=== PATIENT | female | born 1990 | race Caucasian/White ===

== ENCOUNTER 2020-07-04 11:07 | Outpatient (REF) | payer OTHER, SELFPAY ==
--- NOTE | 2020-07-04 11:12 | XR_ITS ---
EXAMINATION: XR KNEE, RIGHT CLINICAL INFORMATION: M25.561 - Pain in right knee COMPARISON: Radiographs right lower leg 09/12/2019 TECHNIQUE: Right knee is imaged in 4 views including AP projection with weightbearing. FINDINGS: There is no fracture, dislocation, or destructive process. Normal bony mineralization. No knee joint compartment narrowing. No erosive change or chondrocalcinosis. Lateral view shows suprapatellar bursa within limits of normal thickness. No definite effusion. Hoffa's fat pad appears normal. Axial view patella shows no lateralization or tilting. XR/XR knee RT 4V IMPRESSION: Normal right knee.
== END 2020-07-04 11:08 | disposition home or self-care (01) ==
LOC: HO.XRAY 11:07
PROVIDERS: PCP Hospitalist; Visit Provider Hospitalist
DX: M25.561 Pain in right knee (principal)
CPT/HCPCS: 73564

== ENCOUNTER 2020-10-31 10:56 | Outpatient (REF) | payer OTHER, SELFPAY ==
[2020-11-01 03:44] LABS: CT PCR NOT DETECTED (Not Detect.); NG PCR NOT DETECTED (Not Detect.)
[2020-11-01 14:30] LABS: BV Int Neg Control Negative (Negative); BV Int Pos Control Positive (Positive)
[2020-11-02 23:31] LABS: HPV mRNA E6/E7 rflx Not Detected (Not Detected)
== END 2020-10-31 10:57 | disposition home or self-care (01) ==
LOC: HO.LAB 10:56
PROVIDERS: Visit Provider Advanced Practice Midwife
DX: Z01.419 Encounter for gynecological examination (general) (routine) without abnormal findings (principal); N89.8 Other specified noninflammatory disorders of vagina; N92.1 Excessive and frequent menstruation with irregular cycle; R10.9 Unspecified abdominal pain; I10 Essential (primary) hypertension; M54.2 Cervicalgia; Z87.42 Personal history of other diseases of the female genital tract; Z20.2 Contact with and (suspected) exposure to infections with a predominantly sexual mode of transmission; Z79.899 Other long term (current) drug therapy
CPT/HCPCS: 36415; 87480; 87491; 87510; 87591; 87624; 87660; 88142

== ENCOUNTER 2020-11-29 14:14 | Outpatient (REF) | payer OTHER, SELFPAY ==
--- NOTE | ~2020-11-29 | XR_ITS ---
EXAMINATION: XR CERVICAL SPINE CLINICAL INFORMATION: Spondylosis with myelopathy COMPARISON: None TECHNIQUE: 6 views of the cervical spine, inclusive of bilateral oblique views, were obtained. FINDINGS: Bone alignment is normal. No fracture or dislocation is seen. Disc spaces are normal. Neural foramen are patent. Prevertebral soft tissues are normal. XR/XR cervical spine min 6V IMPRESSION: Unremarkable examination.
== END 2020-11-29 14:15 | disposition home or self-care (01) ==
LOC: HO.XRAY 14:14
PROVIDERS: PCP Hospitalist
DX: M47.812 Spondylosis without myelopathy or radiculopathy, cervical region (principal)
CPT/HCPCS: 72052

== ENCOUNTER 2020-12-10 12:56 | Outpatient (RCR) | payer OTHER, SELFPAY | END 2021-01-01 08:00 | disposition home or self-care (01) | LOC: HO.PT 12:56 | PROVIDERS: PCP Hospitalist | DX: M47.812 Spondylosis without myelopathy or radiculopathy, cervical region (principal) | CPT/HCPCS: 97110; 97112; 97162 ==

== ENCOUNTER 2021-11-29 12:46 | Outpatient (REF) | payer OTHER, SELFPAY ==
[2021-11-29 14:18] LABS: Magnesium 1.9 mg/dL (1.6-2.6); Phosphorus 2.7 mg/dL (2.7-4.5)
== END 2021-11-29 12:47 | disposition home or self-care (01) ==
LOC: HO.LAB 12:46
PROVIDERS: PCP Hospitalist; Visit Provider Hospitalist
DX: K21.9 Gastro-esophageal reflux disease without esophagitis (principal)
CPT/HCPCS: 36415; 83735; 84100

== ENCOUNTER 2022-04-04 09:01 | Outpatient (REF) | payer OTHER, SELFPAY ==
[2022-04-04 10:01] LABS: Hematocrit 38.1 % (37.0-47.0); Mean Corpuscular HGB Conc 34.1 g/dl (31.0-35.0); Mean Corpuscular Hemoglobin 29.6 pg (27.0-33.0); Mean Corpuscular Volume 86.8 fL (80.0-98.0); Platelet Count 252 X10*3/uL (160-400); Red Blood Count 4.39 X10*6/uL (4.20-5.50); Red Cell Distribution Width 12.8 % (11.0-16.0); White Blood Count 8.2 X10*3/uL (4.8-10.8)
[2022-04-04 10:16] LABS: Alanine Aminotransferase 29 U/L (0-31); Alkaline Phosphatase 82 U/L (39-117); Anion Gap 13 (12-20); Aspartate Amino Transferase 17 U/L (5-31); Bilirubin Total 0.4 mg/dL (0.0-1.0); Blood Urea Nitrogen 8 mg/dL (9-16); Carbon Dioxide 23 mmol/L (22-29); Chloride 107 mmol/L (96-108); Cholesterol 175 mg/dL; Estimated Glomerular Filt Rate > 60; Glucose Fasting 93 mg/dL (60-99); HDL Cholesterol 44 mg/dL; LDL Cholesterol Calculated 117 mg/dl; Potassium 4.8 mmol/L (3.3-5.1); Sodium 138 mmol/L (135-145); Total Protein 6.7 g/dL (6.5-8.0); Triglycerides 73 mg/dL
[2022-04-04 10:40] LABS: TSH reflex Free T4 1.09 uIU/mL (0.32-4.0)
== END 2022-04-04 09:02 | disposition home or self-care (01) ==
LOC: HO.LAB 09:01
PROVIDERS: Visit Provider Hospitalist
DX: Z00.00 Encounter for general adult medical examination without abnormal findings (principal); I10 Essential (primary) hypertension
CPT/HCPCS: 36415; 80053; 80061; 84443; 85027

== ENCOUNTER 2022-09-12 13:35 | Emergency (ER) | payer OTHER, SELFPAY ==
--- NOTE | ~2022-09-12 | US_ITS ---
EXAMINATION: US ABDOMEN COMPLETE CLINICAL INFORMATION: Abdominal pain with nausea vomiting and diarrhea. COMPARISON: None TECHNIQUE: Real-time imaging of the abdominal viscera. FINDINGS: PANCREAS: Visualized pancreas is unremarkable. ABDOMINAL AORTA: The proximal, mid, and distal segments are normal in caliber. INFERIOR VENA CAVA: Visualized portions are normal. LIVER: The liver is normal in size. The liver contour is normal. There is diffuse increased liver parenchymal echogenicity, consistent with hepatocellular disease, commonly secondary to hepatic steatosis. No focal hepatic lesion. There is no intrahepatic biliary duct dilatation seen. GALLBLADDER: Normal. The gallbladder is physiologically distended without evidence of stones, sludge, polyps, wall thickening or pericholecystic fluid. COMMON BILE DUCT: Normal in caliber measuring 0.3 cm in diameter. RIGHT KIDNEY: Normal. No hydronephrosis. No renal calculi or focal parenchymal lesions. The kidney measures 10.7 cm in maximum dimension. LEFT KIDNEY: Normal. No hydronephrosis. No focal parenchymal lesions. 4 mm echogenic nonshadowing focus in the mid pole parapelvic fat with twinkle artifact, possibly a nonobstructing small renal stone. The kidney measures 10.4 cm in maximum dimension. SPLEEN: Normal. The spleen measures 11.6 cm in maximum dimension. FREE FLUID: None. US/US abdomen complete IMPRESSION: 1. Increased hepatic parenchymal echogenicity suggesting hepatic steatosis. 2. Normal gallbladder. No biliary ductal dilation. 3. Possible 4 mm nonobstructing left renal calculus. No hydronephrosis.
--- NOTE | 2022-09-12 13:52 | ED.ABDPAIN ---
HPI - Abdominal Pain General Chief Complaint: Abdominal Pain <SANJU Barrientos - Last Filed: 09/12/22 13:55> Stated Complaint: Flu Symptoms <SANJU Barrientos - Last Filed: 09/12/22 13:55> Time Seen by Provider: 09/12/22 22:41 <SANJU Barrientos - Last Filed: 09/12/22 13:55> Source: patient <Taurus Min MD - Last Filed: 09/12/22 23:02> Mode of arrival: ambulatory <Taurus Min MD - Last Filed: 09/12/22 23:02> Limitations: no limitations <Taurus Min MD - Last Filed: 09/12/22 23:02> History of Present Illness HPI narrative: 32-year-old female with no major medical problems presents with nausea, vomiting, muscle aches. Symptoms started 4:00 a.m. this morning. That time, symptoms are severe. She vomited twice. The vomitus was nonbloody and nonbilious. She has also had some loose stool that has been nonbloody. She has had some left upper abdominal discomfort. The there is no clear relieving or exacerbating features. The pain does not radiate. Symptoms are crampy in nature. They can be associated with nausea. Sick contacts also includes her son. <Taurus Min MD - Last Filed: 09/12/22 23:02> Related Data Home Medications: Previous Rx's Medication Instructions Recorded atenolol 25 mg tablet 25 mg PO DAILY #90 tabs 04/03/22 cetirizine 10 mg tablet (Zyrtec) 10 mg PO DAILY #30 tabs 04/03/22 omeprazole 40 mg capsule,delayed 40 mg PO QAM #90 caps 04/03/22 release ondansetron 4 mg disintegrating 4 mg PO Q8H PRN nausea and 09/12/22 tablet vomiting #10 tabs <SANJU Barrientos - Last Filed: 09/12/22 13:55> Allergies/Adverse Reactions: Allergies Allergy/AdvReac Type Severity Reaction Status Date / Time aspirin [ASPIRIN] Allergy Mild BRUISES, Verified 04/14/22 14:07 rash penicillin G Allergy Mild Hives Verified 04/14/22 14:07 <SANJU Barrientos - Last Filed: 09/12/22 13:55> Review of Systems Review of Systems CONSTITUTIONAL: Denies weight loss, fever and chills. HEENT: Denies changes in vision and hearing. RESPIRATORY: Denies SOB and cough. CV: Denies palpitations no CP. GI: + abdominal pain, nausea, vomiting and diarrhea. : Denies dysuria and urinary frequency. MSK: Denies myalgia and joint pain. SKIN: Denies rash and pruritus. NEUROLOGICAL: Denies headache and syncope. PSYCHIATRIC: Denies recent changes in mood. Denies anxiety and depression. All other ROS are negative unless in HPI <Taurus Min MD - Last Filed: 09/12/22 23:02> PMFSH Past Medical History Surgical History: Surgical History History of section History of foot surgery History of tubal ligation <SANJU Barrientos - Last Filed: 09/12/22 13:55> Family History Family History: Family History Father Lupus Arthritis Mother Hypertension Sister Ovarian cancer Sister Hypoglycemia Paternal Grandfather Lung cancer <SANJU Barrientos - Last Filed: 09/12/22 13:55> Social History Social History: Social History Housing: Apartment Alcohol intake: current Alcohol intake frequency: holidays/special occasions only Alcohol type: wine Patient Tobacco Use Status: Never used Tobacco Smoked in Last 30 Days: No e-Cigarette/Vaping Use: Never Used Second Hand Smoke Exposure: No Use of substances other than those prescribed or required for medical reasons: No Advance Directives: No Advance Directives Information Provided: Yes service: No Current occupational status: employed Current occupational exposures/hazards: No Gender identity: Female Cognitive needs: No Hearing needs: No Vision needs: No <SANJU Barrientos Last Filed: 09/12/22 13:55> Physical Exam ED Vital Signs: Vital Signs - 24 hr 09/12/22 13:54 Temperature 98.7 F Pulse Rate 109 H Respiratory Rate 16 Blood Pressure 127/81 Pulse Oximetry 99 Oxygen Delivery Method Room Air BMI result Body Mass Index 34.4 <SANJU Barrientos - Last Filed: 09/12/22 13:55> Vital Signs - 24 hr 09/12/22 13:54 Temperature 98.7 F Pulse Rate 109 H Respiratory Rate 16 Blood Pressure 127/81 Pulse Oximetry 99 Oxygen Delivery Method Room Air BMI result Body Mass Index 34.4 GEN: Well developed, no acute distress, alert, oriented HEENT: Normocephalic, atraumatic, normal external ears, nose appears normal, no oropharyngeal edema or exudates Eyes: Normal to appearance Neck: Supple, no lymphadenopathy Respiratory: Talks in complete sentences, no respiratory distress, clear to auscultation bilaterally Cardiovascular: Regular rate and rhythm, no murmurs rubs or gallops Abdomen: Soft, nontender, nondistended, no guarding, no rebound Back: No CVA tenderness Extremities: No clubbing cyanosis or edema Neurologic: No focal neurologic deficits, cranial nerves 2-12 intact, strength is 5/5 bilaterally, gait normal Skin: No rash <Taurus Min MD - Last Filed: 09/12/22 23:02> Course Course Course Narrative: RME- 13:55PM - 32yoF who is Czech-speaking HTN, 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 Reports her son has similar symptoms. Denies any fevers, dysuria or any other symptoms related to this. Plan: Will obtain labs, COVID/RSV/flu swab, UA and a abdominal ultrasound. Patient will be sent to the waiting room to be evaluated in the ED. <SANJU Barrientos - Last Filed: 09/12/22 13:55> Reevaluation(s) Reevaluation #1: Is almost 11:00 a.m. at night. The workup is complete. Ultrasound did not reveal any evidence of acute cholecystitis or renal colic. There was fatty liver infiltration. I did discuss the kidney stone finding as well as the fatty liver changes. These are certainly not the cause of her symptoms. Her lab work did show an elevated white blood cell count with left shift. She also was negative for influenza or COVID. She is currently feeling better than she did this morning, has been tolerating liquids. She can be discharged home at this time. She was given discharge instructions in terms of diet, reasons to return and reasons to follow up with her primary care provider. <Taurus Min MD - Last Filed: 09/12/22 23:02> Time: 22:56 <Taurus Min MD - Last Filed: 09/12/22 23:02> Medical Decision Making Medical Decision Making [facility] Narrative: 32-year-old female with no major medical problems presents with nausea, vomiting, diarrhea, abdominal discomfort. Symptoms started today. On examination she had no abdominal tenderness, rebound or guarding. Her lungs are clear to auscultation bilaterally. Her vital signs are normal with exception of mild tachycardia. She will have workup including laboratory analysis, ultrasound and viral serology. <Taurus Min MD - Last Filed: 09/12/22 23:02> Differential Diagnosis Differential Diagnoses: The differential diagnosis associated with the presentation includes (Viral illness, COVID, influenza, gastroenteritis, IBS, electrolyte abnormality, anemia) <Taurus Min MD - Last Filed: 09/12/22 23:02> Viral syndrome, nausea, vomiting, diarrhea <Taurus Min MD - Last Filed: 09/12/22 23:02> Admission/Observation Consideration of admission/observation: Escalation of care including admission/observation considered <Taurus Min MD - Last Filed: 09/12/22 23:02> Lab Data [facility] Lab Attestation statement: I reviewed the patient's lab results. <Taurus Min MD - Last Filed: 09/12/22 23:02> Result Diagrams: 09/12/22 14:25 09/12/22 14:25 <SANJU Barrientos - Last Filed: 09/12/22 13:55> Labs: Lab Results 09/12/22 09/12/22 09/12/22 Range/Units 14:25 14:25 14:25 WBC 12.0 H (4.8-10.8) X10*3/uL RBC 4.80 (4.20-5.50) X10*6/uL Hgb 14.0 (12.0-16.0) g/dl Hct 40.8 (37.0-47.0) % MCV 85.0 (80.0-98.0) fL MCH 29.2 (27.0-33.0) pg MCHC 34.3 (31.0-35.0) g/dl RDW 12.9 (11.0-16.0) % Plt Count 249 (160-400) X10*3/uL MPV 9.8 (9.4-12.3) fL Immature Gran % (Auto) 0.4 (0.0-0.4) % Neut % (Auto) 89.4 H (45-73) % Lymph % (Auto) 4.6 L (20-40) % Robertson % (Auto) 4.7 (2-11) % Eos % (Auto) 0.7 (0-4) % Baso % (Auto) 0.2 (0-2) % Lymph # (Auto) 0.6 L (1.2-4.9) X10*3/uL Robertson # (Auto) 0.6 (0.1-1.2) X10*3/uL Eos # (Auto) 0.1 (0.0-0.4) X10*3/uL Baso # (Auto) 0.0 (0.0-0.2) X10*3/uL Abs Immat Gran (auto) 0.05 H (0.00-0.03) X10*3/uL Absolute Neuts (auto) 10.8 H (2.0-8.3) x10*3/uL Absolute Nucleated RBC 0.000 (0.0-0.012) X10*3/uL Nucleated RBC % (auto) 0.0 (0.0-0.2) /100WBC PT 13.2 H (10.0-13.1) SEC INR 1.1 (0.9-1.1) Sodium 140 (135-145) mmol/L Potassium 4.5 (3.3-5.1) mmol/L Chloride 108 (96-108) mmol/L Carbon Dioxide 24 (22-29) mmol/L Anion Gap 13 (12-20) BUN 11 (9-16) mg/dL Creatinine 0.65 (0.5-1.4) mg/dL Estim Creat Clear Calc 101.1 Estimated GFR > 60 Random Glucose 94 (60-115) mg/dL Calcium 9.2 (8.4-10.2) mg/dL Magnesium 1.9 (1.6-2.6) mg/dL Total Bilirubin 0.8 (0.0-1.0) mg/dL AST 19 (5-31) U/L ALT 30 (0-31) U/L Alkaline Phosphatase 92 (39-117) U/L Total Protein 7.1 (6.5-8.0) g/dL Albumin 4.3 (3.5-5.0) g/dL Lipase 12 (8-78) U/L Beta HCG, Quant < 2 mIU/mL Influenza Type A (PCR) (Negative) Influenza Type B (PCR) (Negative) RSV RNA Qual (PCR) (Negative) SARS-CoV-2 RNA (RT-PCR) (Negative) 09/12/22 Range/Units 14:25 WBC (4.8-10.8) X10*3/uL RBC (4.20-5.50) X10*6/uL Hgb (12.0-16.0) g/dl Hct (37.0-47.0) % MCV (80.0-98.0) fL MCH (27.0-33.0) pg MCHC (31.0-35.0) g/dl RDW (11.0-16.0) % Plt Count (160-400) X10*3/uL MPV (9.4-12.3) fL Immature Gran % (Auto) (0.0-0.4) % Neut % (Auto) (45-73) % Lymph % (Auto) (20-40) % Robertson % (Auto) (2-11) % Eos % (Auto) (0-4) % Baso % (Auto) (0-2) % Lymph # (Auto) (1.2-4.9) X10*3/uL Robertson # (Auto) (0.1-1.2) X10*3/uL Eos # (Auto) (0.0-0.4) X10*3/uL Baso # (Auto) (0.0-0.2) X10*3/uL Abs Immat Gran (auto) (0.00-0.03) X10*3/uL Absolute Neuts (auto) (2.0-8.3) x10*3/uL Absolute Nucleated RBC (0.0-0.012) X10*3/uL Nucleated RBC % (auto) (0.0-0.2) /100WBC PT (10.0-13.1) SEC INR (0.9-1.1) Sodium (135-145) mmol/L Potassium (3.3-5.1) mmol/L Chloride (96-108) mmol/L Carbon Dioxide (22-29) mmol/L Anion Gap (12-20) BUN (9-16) mg/dL Creatinine (0.5-1.4) mg/dL Estim Creat Clear Calc Estimated GFR Random Glucose (60-115) mg/dL Calcium (8.4-10.2) mg/dL Magnesium (1.6-2.6) mg/dL Total Bilirubin (0.0-1.0) mg/dL AST (5-31) U/L ALT (0-31) U/L Alkaline Phosphatase (39-117) U/L Total Protein (6.5-8.0) g/dL Albumin (3.5-5.0) g/dL Lipase (8-78) U/L Beta HCG, Quant mIU/mL Influenza Type A (PCR) NEGATIVE (Negative) Influenza Type B (PCR) NEGATIVE (Negative) RSV RNA Qual (PCR) NEGATIVE (Negative) SARS-CoV-2 RNA (RT-PCR) NEGATIVE (Negative) <SANJU Barrientos - Last Filed: 09/12/22 13:55> Lab Results 09/12/22 09/12/22 09/12/22 Range/Units 14:25 14:25 14:25 WBC 12.0 H (4.8-10.8) X10*3/uL RBC 4.80 (4.20-5.50) X10*6/uL Hgb 14.0 (12.0-16.0) g/dl Hct 40.8 (37.0-47.0) % MCV 85.0 (80.0-98.0) fL MCH 29.2 (27.0-33.0) pg MCHC 34.3 (31.0-35.0) g/dl RDW 12.9 (11.0-16.0) % Plt Count 249 (160-400) X10*3/uL MPV 9.8 (9.4-12.3) fL Immature Gran % (Auto) 0.4 (0.0-0.4) % Neut % (Auto) 89.4 H (45-73) % Lymph % (Auto) 4.6 L (20-40) % Robertson % (Auto) 4.7 (2-11) % Eos % (Auto) 0.7 (0-4) % Baso % (Auto) 0.2 (0-2) % Lymph # (Auto) 0.6 L (1.2-4.9) X10*3/uL Robertson # (Auto) 0.6 (0.1-1.2) X10*3/uL Eos # (Auto) 0.1 (0.0-0.4) X10*3/uL Baso # (Auto) 0.0 (0.0-0.2) X10*3/uL Abs Immat Gran (auto) 0.05 H (0.00-0.03) X10*3/uL Absolute Neuts (auto) 10.8 H (2.0-8.3) x10*3/uL Absolute Nucleated RBC 0.000 (0.0-0.012) X10*3/uL Nucleated RBC % (auto) 0.0 (0.0-0.2) /100WBC PT 13.2 H (10.0-13.1) SEC INR 1.1 (0.9-1.1) Sodium 140 (135-145) mmol/L Potassium 4.5 (3.3-5.1) mmol/L Chloride 108 (96-108) mmol/L Carbon Dioxide 24 (22-29) mmol/L Anion Gap 13 (12-20) BUN 11 (9-16) mg/dL Creatinine 0.65 (0.5-1.4) mg/dL Estim Creat Clear Calc 101.1 Estimated GFR > 60 Random Glucose 94 (60-115) mg/dL Calcium 9.2 (8.4-10.2) mg/dL Magnesium 1.9 (1.6-2.6) mg/dL Total Bilirubin 0.8 (0.0-1.0) mg/dL AST 19 (5-31) U/L ALT 30 (0-31) U/L Alkaline Phosphatase 92 (39-117) U/L Total Protein 7.1 (6.5-8.0) g/dL Albumin 4.3 (3.5-5.0) g/dL Lipase 12 (8-78) U/L Beta HCG, Quant < 2 mIU/mL Influenza Type A (PCR) (Negative) Influenza Type B (PCR) (Negative) RSV RNA Qual (PCR) (Negative) SARS-CoV-2 RNA (RT-PCR) (Negative) 09/12/22 Range/Units 14:25 WBC (4.8-10.8) X10*3/uL RBC (4.20-5.50) X10*6/uL Hgb (12.0-16.0) g/dl Hct (37.0-47.0) % MCV (80.0-98.0) fL MCH (27.0-33.0) pg MCHC (31.0-35.0) g/dl RDW (11.0-16.0) % Plt Count (160-400) X10*3/uL MPV (9.4-12.3) fL Immature Gran % (Auto) (0.0-0.4) % Neut % (Auto) (45-73) % Lymph % (Auto) (20-40) % Robertson % (Auto) (2-11) % Eos % (Auto) (0-4) % Baso % (Auto) (0-2) % Lymph # (Auto) (1.2-4.9) X10*3/uL Robertson # (Auto) (0.1-1.2) X10*3/uL Eos # (Auto) (0.0-0.4) X10*3/uL Baso # (Auto) (0.0-0.2) X10*3/uL Abs Immat Gran (auto) (0.00-0.03) X10*3/uL Absolute Neuts (auto) (2.0-8.3) x10*3/uL Absolute Nucleated RBC (0.0-0.012) X10*3/uL Nucleated RBC % (auto) (0.0-0.2) /100WBC PT (10.0-13.1) SEC INR (0.9-1.1) Sodium (135-145) mmol/L Potassium (3.3-5.1) mmol/L Chloride (96-108) mmol/L Carbon Dioxide (22-29) mmol/L Anion Gap (12-20) BUN (9-16) mg/dL Creatinine (0.5-1.4) mg/dL Estim Creat Clear Calc Estimated GFR Random Glucose (60-115) mg/dL Calcium (8.4-10.2) mg/dL Magnesium (1.6-2.6) mg/dL Total Bilirubin (0.0-1.0) mg/dL AST (5-31) U/L ALT (0-31) U/L Alkaline Phosphatase (39-117) U/L Total Protein (6.5-8.0) g/dL Albumin (3.5-5.0) g/dL Lipase (8-78) U/L Beta HCG, Quant mIU/mL Influenza Type A (PCR) NEGATIVE (Negative) Influenza Type B (PCR) NEGATIVE (Negative) RSV RNA Qual (PCR) NEGATIVE (Negative) SARS-CoV-2 RNA (RT-PCR) NEGATIVE (Negative) <Taurus Min MD - Last Filed: 09/12/22 23:02> Independent Interpretation I performed an independent interpretation of an: Ultrasound (Abdomen, no acute disease process. She has fatty liver infiltrate as well as a kidney stone. It is nonobstructive. There is no hydronephrosis. There may be a gallbladder polyp or a small stone in the gallbladder.) <Taurus Min MD - Last Filed: 09/12/22 23:02> Radiology Impression Discussion of test interpretation with radiology: I have reviewed the radiologist's reading. (IMPRESSION: 1. Increased hepatic parenchymal echogenicity suggesting hepatic steatosis. 2. Normal gallbladder. No biliary ductal dilation. 3. Possible 4 mm nonobstructing left renal calculus. No hydronephrosis. Dictated By:Vargas SerratoSigned By:<Electronically signed by Vargas Serrato in [facility]>) <Taurus Min MD - Last Filed: 09/12/22 23:02> Independent Historian Clinical information obtained from an independent historian. History obtained from or confirmed by: Other (Child) <Taurus Min MD - Last Filed: 09/12/22 23:02> External Record Review External record reviewed: Office record (Primary care visit from 04/03/2022) <Taurus Min MD - Last Filed: 09/12/22 23:02> Tests considered The following testing was considered but not selected: Chest x-ray <Taurus Min MD - Last Filed: 09/12/22 23:02> Prescription Management I considered prescription management with: Pain Medication, Antiviral and Antibiotic <Taurus Min MD - Last Filed: 09/12/22 23:02> Discharge Plan Discharge Clinical Impression: Acute viral syndrome, Leukocytosis, Nausea vomiting and diarrhea <SANJU Barrientos - Last Filed: 09/12/22 13:55> Patient Disposition: Home, Self-Care <SANJU Barrientos - Last Filed: 09/12/22 13:55> Instructions: Viral Syndrome (ED), Leukocytosis (ED), Acute Diarrhea (ED), Acute Nausea and Vomiting (ED) <SANJU Barrientos - Last Filed: 09/12/22 13:55> Additional Instructions: You were seen today for what appears to be a viral syndrome. I am recommending to make sure you drink appropriate levels of fluids. I will make sure you maintain hydration. He may take ondansetron sublingually every 8 hours as needed for nausea. Advance her diet as tolerate. Please avoid dairy and acidic foods. For intractable nausea, vomiting and severe abdominal pain, please return to the emergency department for re-evaluation. <SANJU Barrientos - Last Filed: 09/12/22 13:55> Prescriptions: New ondansetron 4 mg tablet,disintegrating 4 mg PO Q8H PRN (Reason: nausea and vomiting) Qty: 10 0RF No Action atenolol 25 mg tablet 25 mg PO DAILY Qty: 90 3RF cetirizine [Zyrtec] 10 mg tablet 10 mg PO DAILY Qty: 30 3RF omeprazole 40 mg capsule,delayed release(DR/EC) 40 mg PO QAM Qty: 90 2RF <SANJU Barrientos - Last Filed: 09/12/22 13:55> Referrals: Albertina Keith NP [Primary Care Provider] - 3 days <SANJU Barrientos - Last Filed: 09/12/22 13:55> Stand Alone Forms: Work/School Release <SANJU Barrientos Last Filed: 09/12/22 13:55> Print Language: Czech <SANJU Barrientos Last Filed: 09/12/22 13:55>
[2022-09-12 13:54] VITALS: BP 127/81; PULSE 109; RESP 16; TEMP 37.1; O2SAT 99; BMI 34.4
[2022-09-12 14:31] LABS: MANUAL DIFF FLAG NO
[2022-09-12 14:35] LABS: Basophils Percent Auto 0.2 % (0-2); Eosinophils Absolute Auto 0.1 X10*3/uL (0.0-0.4); Eosinophils Percent Auto 0.7 % (0-4); Hematocrit 40.8 % (37.0-47.0); Imm Gran Abs Auto 0.05 X10*3/uL (0.00-0.03); Imm Gran Pct Auto 0.4 % (0.0-0.4); Lymphocytes Absolute Auto 0.6 X10*3/uL (1.2-4.9); Lymphocytes Percent Auto 4.6 % (20-40); Mean Corpuscular HGB Conc 34.3 g/dl (31.0-35.0); Mean Corpuscular Hemoglobin 29.2 pg (27.0-33.0); Mean Platelet Volume 9.8 fL (9.4-12.3); Monocytes Absolute Auto 0.6 X10*3/uL (0.1-1.2); Monocytes Percent Auto 4.7 % (2-11); Neutrophils Absolute Auto 10.8 x10*3/uL (2.0-8.3); Neutrophils Percent Auto 89.4 % (45-73); Platelet Count 249 X10*3/uL (160-400); Red Cell Distribution Width 12.9 % (11.0-16.0)
[2022-09-12 14:42] LABS: INTERNATIONAL NORM RATIO 1.1 (0.9-1.1); Prothrombin Time 13.2 SEC (10.0-13.1)
[2022-09-12 14:56] LABS: Alanine Aminotransferase 30 U/L (0-31); Albumin Level 4.3 g/dL (3.5-5.0); Alkaline Phosphatase 92 U/L (39-117); Anion Gap 13 (12-20); Aspartate Amino Transferase 19 U/L (5-31); Bilirubin Total 0.8 mg/dL (0.0-1.0); Blood Urea Nitrogen 11 mg/dL (9-16); Calcium 9.2 mg/dL (8.4-10.2); Carbon Dioxide 24 mmol/L (22-29); Chloride 108 mmol/L (96-108); Creatinine Clr Calc Pharmacy 101.1; Estimated Glomerular Filt Rate > 60; Glucose Random 94 mg/dL (60-115); Lipase 12 U/L (8-78); Magnesium 1.9 mg/dL (1.6-2.6); Potassium 4.5 mmol/L (3.3-5.1); Sodium 140 mmol/L (135-145); Total Protein 7.1 g/dL (6.5-8.0)
[2022-09-12 15:02] LABS: HCG Quantitative < 2 mIU/mL
[2022-09-12 15:16] LABS: Influenza A PCR NEGATIVE (Negative); Influenza B PCR NEGATIVE (Negative); Resp Syncy Virus RNA Qual PCR NEGATIVE (Negative); SARS COV2 PCR INHOUSE NEGATIVE (Negative)
[2022-09-12 23:32] VITALS: BP 123/74; PULSE 99; RESP 16; TEMP 36.7; O2SAT 99
== END 2022-09-12 23:33 | disposition home or self-care (01) ==
PROVIDERS: Physician Assistant Medical; Emergency Provider Emergency Medicine; PCP Hospitalist
DX: B34.9 Viral infection, unspecified (principal); M79.10 Myalgia, unspecified site; D72.829 Elevated white blood cell count, unspecified; Z20.822 Contact with and (suspected) exposure to COVID-19; Z20.828 Contact with and (suspected) exposure to other viral communicable diseases; Z79.899 Other long term (current) drug therapy
CPT/HCPCS: 0241U; 36415; 76700; 80053; 83690; 83735; 84702; 85025; 85610; 99284

== ENCOUNTER 2022-09-24 10:59 | Outpatient (REF) | payer OTHER, SELFPAY ==
--- NOTE | ~2022-09-24 | US_ITS ---
EXAMINATION: US PELVIS CLINICAL INFORMATION: Pelvic and perineal pain; the patient is currently having her menstrual period. COMPARISON: None TECHNIQUE: Ultrasound of the pelvis is performed using both transabdominal and transvaginal transducers along with Doppler. Transvaginal imaging is performed due to inadequate visualization transabdominally. FINDINGS: Uterus: The uterus is anteverted and anteflexed. The uterus measures 8.5 x 4.0 x 5.2 cm. Nabothian cysts are seen within the cervix. The double wall endometrial thickness is 0.8 mm. The uterus is smooth in contour and has normal myometrial echogenicity. No visible fibroid. Adnexa: The right ovary is visualized; the left ovary is not visualized. There is normal color flow to the adnexa. There is no ovarian torsion. There is no pelvic ascites or fluid collection. Right ovary measures 7.3 x 5.6 x 7.5 cm, volume 157.5 mL. The right ovary contains a 6.0 x 5.2 x 6.6 cm simple cyst. This shows no septation, mural nodularity or associated color Doppler flow. US/US pelvic and transvaginal IMPRESSION: 1. A 6.6 cm in maximal diameter right ovarian cyst is seen. This shows simple ultrasound features. Recommend follow-up ultrasound imaging in 6-12 months for growth rate assessment. 2. Nabothian cysts are seen within the cervix.
== END 2022-09-24 11:00 | disposition home or self-care (01) ==
LOC: HO.US 10:59
PROVIDERS: PCP Hospitalist; Visit Provider Advanced Practice Midwife
DX: R10.2 Pelvic and perineal pain (principal); Z87.42 Personal history of other diseases of the female genital tract
CPT/HCPCS: 76830; 76856

== ENCOUNTER 2022-09-29 13:36 | Outpatient (REF) | payer OTHER, SELFPAY ==
[2022-09-29 14:21] LABS: Hematocrit 36.4 % (37.0-47.0); Hemoglobin 12.6 g/dl (12.0-16.0); Mean Corpuscular HGB Conc 34.6 g/dl (31.0-35.0); Mean Corpuscular Hemoglobin 30.1 pg (27.0-33.0); Mean Corpuscular Volume 87.1 fL (80.0-98.0); Mean Platelet Volume 10.2 fL (9.4-12.3); Platelet Count 266 X10*3/uL (160-400); Red Blood Count 4.18 X10*6/uL (4.20-5.50); White Blood Count 6.5 X10*3/uL (4.8-10.8)
[2022-09-29 15:19] LABS: Alanine Aminotransferase 31 U/L (0-31); Albumin Level 3.9 g/dL (3.5-5.0); Alkaline Phosphatase 88 U/L (39-117); Anion Gap 8 (12-20); Aspartate Amino Transferase 20 U/L (5-31); Bilirubin Total 0.6 mg/dL (0.0-1.0); Blood Urea Nitrogen 7 mg/dL (9-16); Carbon Dioxide 26 mmol/L (22-29); Chloride 111 mmol/L (96-108); Estimated Glomerular Filt Rate > 60; Glucose Fasting 83 mg/dL (60-99); Potassium 4.9 mmol/L (3.3-5.1); Sodium 140 mmol/L (135-145); Total Protein 6.6 g/dL (6.5-8.0)
== END 2022-09-29 13:37 | disposition home or self-care (01) ==
LOC: HO.LAB 13:36
PROVIDERS: PCP Hospitalist; Visit Provider Hospitalist
DX: Z00.00 Encounter for general adult medical examination without abnormal findings (principal); B34.9 Viral infection, unspecified; K76.0 Fatty (change of) liver, not elsewhere classified
CPT/HCPCS: 36415; 80053; 85027

== ENCOUNTER 2022-10-13 09:06 | Outpatient (REF) | payer OTHER, SELFPAY ==
--- NOTE | ~2022-10-13 | XR_ITS ---
EXAMINATION: XR ABDOMEN KUB CLINICAL INDICATION: Right upper quadrant pain. COMPARISON: Abdominal ultrasound dated 09/12/2022. TECHNIQUE: 2 AP views of the abdomen and pelvis are submitted. FINDINGS: The bowel gas pattern is normal with no evidence of ileus or obstruction. No unusual soft tissue calcifications are noted. No urinary calculi are appreciated. There are small pelvic phleboliths. No acute osseous abnormality is seen. XR/XR KUB IMPRESSION: Unremarkable examination.
== END 2022-10-13 09:07 | disposition home or self-care (01) ==
LOC: HO.XRAY 09:06
PROVIDERS: PCP Hospitalist; Visit Provider Hospitalist
DX: R10.11 Right upper quadrant pain (principal); K21.9 Gastro-esophageal reflux disease without esophagitis; I10 Essential (primary) hypertension
CPT/HCPCS: 74018

== ENCOUNTER 2022-10-29 21:43 | Emergency (ER) | payer OTHER, SELFPAY ==
[2022-10-29 22:57] VITALS: BP 135/79; PULSE 100; RESP 16; TEMP 36.8; O2SAT 99; BMI 34.4
[2022-10-30 00:13] VITALS: BP 121/77; PULSE 92; RESP 17; TEMP 36.7; O2SAT 98
--- NOTE | 2022-10-30 00:53 | ED.EXTPRO ---
HPI - Extremity Problem General Chief complaint: Extremity Problem Stated complaint: L sharp pain in wrist going up her arm Time Seen by Provider: 10/30/22 00:30 Source: patient Mode of arrival: ambulatory Limitations: language barrier (Northern Irish speaking only) History of Present Illness HPI Narrative: 32-year-old female who presents emergency department for evaluation of left wrist pain and swelling. Patient states that the pain started 24 hours prior. She did not have any injury. She states that she did see her PCP today who started her on naproxen. She did not start this medication yet. She states the pain is gotten worse. She states the pain started in her wrist is now extending up her medial aspect of her forearm. The pain is worse if she moves her wrist or supinates or pronates her forearm. She denies any injury. She states she has had carpal tunnel in the past. She also states that she is being worked up for lupus. She denied fever or chills. Related Data Previous Rx's Medication Instructions Recorded atenolol 25 mg tablet 25 mg PO DAILY #90 tabs 04/03/22 ondansetron 4 mg disintegrating 4 mg PO Q8H PRN nausea and 09/25/22 tablet vomiting #10 tabs cetirizine 10 mg tablet (Zyrtec) 10 mg PO DAILY #30 tabs 10/03/22 blood pressure test kit-large #1 ea 10/09/22 omeprazole 40 mg capsule,delayed 40 mg PO QAM #90 caps 10/09/22 release bisacodyl 5 mg tablet,delayed 5 mg PO BEDTIME 10 days #10 tabs 10/15/22 release (Dulcolax (bisacodyl)) naproxen 500 mg tablet 500 mg PO BID PRN pain #20 tabs 10/29/22 prednisone 20 mg tablet 40 mg PO DAILY 7 days #14 tabs 10/30/22 Allergies Allergy/AdvReac Type Severity Reaction Status Date / Time aspirin [ASPIRIN] Allergy Mild BRUISES, Verified 10/29/22 23:06 rash penicillin G Allergy Mild Hives Verified 10/29/22 23:06 Review of Systems Review of Systems: Yes all other systems are reviewed and are negative PMFSH Past Medical History [facility] Narrative: Social history: 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 Surgical History History of section History of foot surgery History of tubal ligation Family History Family History Father Lupus Arthritis Mother Hypertension Sister Ovarian cancer Sister Hypoglycemia Paternal Grandfather Lung cancer Social History Social History Housing: Apartment Alcohol intake: current Alcohol intake frequency: holidays/special occasions only Alcohol type: wine Patient Tobacco Use Status: Never used Tobacco e-Cigarette/Vaping Use: Never Used Second Hand Smoke Exposure: No Advance Directives: No Advance Directives Information Provided: Yes service: No Current occupational status: employed Current occupational exposures/hazards: No Gender identity: Female Cognitive needs: No Hearing needs: No Vision needs: No Physical Exam Vital Signs: Vital Signs: Last Vital Signs Temp 98.1 F 10/30/22 00:13 Pulse 92 10/30/22 00:13 Resp 17 10/30/22 00:13 BP 121/77 10/30/22 00:13 Pulse Ox 98 10/30/22 00:13 O2 Del Method Room Air 10/30/22 00:13 BMI result Body Mass Index 34.4 Vital signs were normal. General: Awake, alert, female patient, very pleasant cooperative, no distress Extremity exam: The patient does have increased warmth and swelling of the wrist and hand on the left compared to the right. She has tenderness with palpation of the MCP joints and wrist on the left with significant pain with passive and active range of motion of the wrist and hand. She also has tenderness palpation over the medial aspect of the forearm with no increased erythema or warmth. Her extremities neurovascular intact Medications Administered Discontinued Medications Generic Name Dose Route Start Last Admin Trade Name Freq PRN Reason Stop Dose Admin Prednisone 40 mg 10/30/22 00:53 10/30/22 01:36 Prednisone 20 Mg Tablet PO 10/30/22 00:54 40 mg ONCE ONE Administration Medical Decision Making Medical Decision Making [facility] [place] Narrative: 32-year-old female who presents emergency department for evaluation of left wrist hand and forearm pain and swelling x1 day. Patient's exam is consistent with an inflammatory process of the hand wrist and forearm. The patient did see your doctor but did not start the naproxen that was prescribed. The patient was given prednisone 40 mg orally. She was started on prednisone 40 mg once a day for 7 days. She was also given a wrist splint. She was advised to not take anti-inflammatories while she is taking prednisone but she can take Tylenol for pain. She was given a work note and advised to follow-up with PCP for re-evaluation Differential Diagnosis Differential diagnosis includes was not limited to repetitive motions syndrome, inflammatory arthritis, gout Discharge Plan Discharge Clinical Impression: Inflammatory arthritis Patient Disposition: Home, Self-Care Additional Instructions: Your exam is consistent with an inflammatory arthritis of your hand and wrist. Wear the wrist splint for 1 week. Take prednisone 20 mg pills, 2 pills once a day for 7 days. While you are taking prednisone, do not take any NSAIDs (Motrin, Advil, ibuprofen, Aleve, naproxen). You received your 1st dose of prednisone this morning. Take your next dose this evening prior to going to bed tonight. Then take the prednisone at night until the prescription is completed. Please return to the emergency department if your symptoms get worse or if you develop any symptoms that are concerning to you. Please see the work note. Prescriptions: New prednisone 20 mg tablet 40 mg PO DAILY 7 Days Qty: 14 0RF No Action cetirizine [Zyrtec] 10 mg tablet 10 mg PO DAILY Qty: 30 3RF bisacodyl [Dulcolax (bisacodyl)] 5 mg tablet,delayed release (DR/EC) 5 mg PO BEDTIME 10 Days Qty: 10 0RF atenolol 25 mg tablet 25 mg PO DAILY Qty: 90 3RF naproxen 500 mg tablet 500 mg PO BID PRN (Reason: pain) Qty: 20 0RF omeprazole 40 mg capsule,delayed release(DR/EC) 40 mg PO QAM Qty: 90 2RF (DME) blood pressure test kit-large Kit See Rx Instructions .ROUTE .MEDSUPPLY Qty: 1 0RF Rx Instructions: As directed ondansetron 4 mg tablet,disintegrating 4 mg PO Q8H PRN (Reason: nausea and vomiting) Qty: 10 1RF Stand Alone Forms: Work/School Release
[2022-10-30] MEDS: predniSONE 20 MG TABLET 40 MG PO (01:36)
== END 2022-10-30 01:53 | disposition home or self-care (01) ==
PROVIDERS: Emergency Provider Emergency Medicine Emergency Medical Services; PCP Hospitalist
DX: M19.032 Primary osteoarthritis, left wrist (principal); M25.532 Pain in left wrist
CPT/HCPCS: 99282; 99283

== ENCOUNTER 2023-02-17 15:39 | Outpatient (AMB) | payer OTHER, SELFPAY ==
--- NOTE | 2023-02-17 15:53 | MHC.OFFWIV ---
Intake Vital Signs 02/17/23 16:17 BP 118/76 Blood Pressure Location Rt brachial Position Sitting Pulse 90 Pulse Source Pulse Oximeter Pulse Oximetry (%) 98 Oxygen Delivery Method Room Air Intake Visit Reasons: EP rash under breast, lump on LT (lobby) Intake Note: Patient here for rash under both breasts, she also states she feels a lump on left side under breast, she mentions that it is itchy and burning sensation. Patient Tobacco Use Status: Never used Tobacco Allergies aspirin [ASPIRIN] Allergy (Mild, Verified 02/18/23 05:45) BRUISES, rash penicillin G Allergy (Mild, Verified 02/18/23 05:45) Hives Medication List - Last Reconciled 02/18/23 by Delroy Warner MD atenolol 25 mg PO DAILY bisacodyl (Dulcolax (bisacodyl)) 5 mg PO BEDTIME 10 days blood pressure test kit-large As directed cetirizine (Zyrtec) 10 mg PO DAILY ketoconazole 2% 1 appl topical DAILY ketoconazole 2% 1 appl topical DAILY naproxen 500 mg PO BID PRN omeprazole 40 mg PO QAM ondansetron 4 mg PO Q8H PRN Do you need a note to return to daycare/school/sports/work: No HPI EP rash under breast, lump on LT (lobby) HPI Details 32-year-old female presents to the office for a sick visit. A medical technical writer was used to translate. Patient has a rash under both her breasts for the past 2 weeks. She describes sensations of burning and itching. [facility] Surgical History History of section History of foot surgery History of tubal ligation Family History Father Lupus Arthritis Mother Hypertension Sister Ovarian cancer Sister Hypoglycemia Paternal Grandfather Lung cancer Social History Housing: Apartment Alcohol intake: current Alcohol intake frequency: holidays/special occasions only Alcohol type: wine Patient Tobacco Use Status: Never used Tobacco e-Cigarette/Vaping Use: Never Used Second Hand Smoke Exposure: No service: No Current occupational status: employed Current occupational exposures/hazards: No Gender identity: Female Cognitive needs: No Hearing needs: No Vision needs: No Female Reproductive History Menstrual Age of Menarche: 10 Physical Exam Vital Signs: Last Vital Signs Pulse 90 02/17/23 16:17 BP 118/76 02/17/23 16:17 Pulse Ox 98 02/17/23 16:17 Oxygen Delivery Method Room Air 02/17/23 16:17 Chest Other: Bilateral breast: Very pendulous: Under need the breast the skin is erythematous, no vesicles or scaling seen. No lump palpable. Assessment & Plan Assessment & Plan (1) Tinea corporis: Code(s): B35.4 - Tinea corporis Plan: Use the cream provided twice a day. Keep the area dry. Patient was advised to use the cream for 1 week in follow-up here. A specific sore area, patient was reporting could not be determined clinically. Patient was advised to return for a follow-up visit in 1 week Medications: New ketoconazole 2% 1 appl topical DAILY 30 grams 1RF ketoconazole 2% 1 appl topical DAILY 30 grams 1RF Coding Level of Care Code Est Pt Level 3 (22016) Diagnoses Tinea corporis B35.4
[2023-02-17 16:17] VITALS: BP 118/76; PULSE 90; O2SAT 98
== END 2023-02-17 16:49 | disposition home or self-care (01) ==
PROVIDERS: PCP Hospitalist; Visit Provider Internal Medicine
DX: B35.4 Tinea corporis (principal)
CPT/HCPCS: 99213

== ENCOUNTER 2023-02-27 08:56 | Outpatient (AMB) | payer OTHER, SELFPAY ==
--- NOTE | 2023-02-27 08:57 | MHC.OFFVIS ---
Intake Vital Signs 02/27/23 09:00 Height 4 ft 9 in Weight 162 lb BMI 35.1 BP 118/76 Intake Visit Reasons: breast lump and rash Intake Note: c/o of left breast lump x 2 weeks and rash under breasts The patient agreed to use of a rn medical surgical during this encounter. Scribed for HAYLEE Mathew by Reena Guadalupe rn medical surgical, on 02/27/2023 at 9:15 am EST Retirement Assistant Required: Yes Retirement Assistant Language: Equipment Maintenance Superintendent Name: Tanvi WILSON Information Interpreted: non-clinical & clinical Reproductive Endocrinologist: Reproductive Endocrinologist Present (Tanvi WILSON) Accompanied by: Self / Same As Patient Allergies aspirin [ASPIRIN] Allergy (Mild, Verified 02/27/23 09:06) BRUISES, rash penicillin G Allergy (Mild, Verified 02/27/23 09:06) Hives Is last menstrual period known: Yes Last menstrual period: 02/14/23 HPI HPI Comments History of Present Illness Details She presents with complaints of left breast lump for approximately 2 weeks. Also reports rash under bilateral breasts, felt like her skin was peeling when it first started. Denies injury or trauma. Denies hx of breast lumps, surgeries or bx in the past. Denies family hx of breast cancer. Reports irregular menses, skipping months, typically 2 months. States she has always been like that. Denies bleeding shorter than 2 weeks. When she does have her menses, last approximately 5 days. Currently sexually active. Hx of BTL for BC. 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 Current occupational exposures/hazards: No Gender identity: Female Cognitive needs: No Hearing needs: No Vision needs: No Female Reproductive History Menstrual Age of Menarche: 10 Duration of menses: 3-5 days Date of last menstrual period: 02/14/23 Review of Systems Const All systems reviewed & are unremarkable except as noted in HPI and below Skin/Breast Reports breast mass and Reports rash Physical Exam Vital Signs: Last Vital Signs BP 118/76 02/27/23 09:00 BMI result Body Mass Index 35.1 Const General: cooperative, no acute distress and well developed Chest Other: 2cm erythematous area, indurated under left breast near bra line at 6:00. No pus or drainage noted. Additionally: fungal appearing rash under both breasts extending to the chest wall. Breast/axilla inspection: normal inspection of the breasts (symmetrical ) and Other (no: puckering, dimpling, peau de orange, retraction, discharge or lesions) Breast/axilla palpation: normal palpation of the breasts and other (no masses palpable bilaterally) Chest/axillae images: 1. 2cm indurated, superficial erythematous area appears to be inflamed/infected hair follicle or sebaceous gland Assessment & Plan Assessment & Plan (1) Skin infection: Code(s): L08.9 - Local infection of the skin and subcutaneous tissue, unspecified Plan: Possible sebaceous gland or folliculitis. Recommended warm compresses to area TID for a minimum of 15 minutes at a time. Instructed to go to ED with any fever >100.4, flu like sx, chills, increased pain, swelling or redness. Can use Tylenol for pain. Instructions reviewed for medication use. No underwire bras. RTO on Thursday for recheck.? (2) Rash and nonspecific skin eruption: Code(s): R21 - Rash and other nonspecific skin eruption Medications: New clotrimazole-betamethasone 1-0.05 % do not use Ketoconazole at the same time 1 appl topical BID 7 days 45 grams 1RF fungal rash sulfamethoxazole-trimethoprim 800-160 mg (Bactrim DS) 1 tab PO BID 10 days 20 tabs 0RF Coding Level of Care Code Est Pt Level 3 (55972) Diagnoses Skin infection L08.9 Rash and nonspecific skin eruption R21
[2023-02-27 09:00] VITALS: BP 118/76; BMI 35.1
== END 2023-02-27 09:36 | disposition home or self-care (01) ==
LOC: HO.HWS 08:57
PROVIDERS: PCP Hospitalist; Visit Provider Advanced Practice Midwife
DX: L08.9 Local infection of the skin and subcutaneous tissue, unspecified (principal); R21 Rash and other nonspecific skin eruption
CPT/HCPCS: 99213

== ENCOUNTER → 2023-02-27 08:56 | Outpatient (BNVA) | payer OTHER, SELFPAY | PROVIDERS: PCP Hospitalist; Visit Provider Advanced Practice Midwife | DX: L08.9 Local infection of the skin and subcutaneous tissue, unspecified (principal); R21 Rash and other nonspecific skin eruption | CPT/HCPCS: 99212 ==

== ENCOUNTER 2023-03-03 14:39 | Outpatient (AMB) | payer OTHER, SELFPAY ==
--- NOTE | 2023-03-03 14:46 | MHC.OFFVIS ---
Intake Vital Signs 03/03/23 14:48 Height 4 ft 9 in Weight 162 lb BMI 35.1 BP 120/70 Intake Visit Reasons: Left Breast Recheck Intake Note: The patient agreed to use of a manager medical during this encounter. Scribed for HAYLEE Mathew by Mary Beth Barlow manager medical, on 03/03/2023 at 3:12 pm EST. Product Support Technician Required: Yes Product Support Technician Language: Calculation Clerk Name: Tanvi Information Interpreted: non-clinical & clinical Development Planner: Development Planner Present (Tanvi) Allergies aspirin [ASPIRIN] Allergy (Mild, Verified 03/03/23 14:46) BRUISES, rash penicillin G Allergy (Mild, Verified 03/03/23 14:46) Hives HPI HPI Comments History of Present Illness Details She is here for a left breast recheck do to her c/o of left breast lump for 3 weeks and rash under breasts for 2 weeks in 01/2023. Reports lump enlarged since last visit on 02/27/23, but her rash has improved. Denies itching and drainage of breast. Taking antibiotics and using heat to the area. 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 rash/infection has improved. Assessment & Plan Assessment & Plan (1) Rash and nonspecific skin eruption: Comment: under breast Code(s): R21 - Rash and other nonspecific skin eruption Plan: Discussed: Encouraged to continue Rx and apply warm compress to area. Breast US. Mammogram. Scheduled due to recent skin rash/infection and mass on left breast. All of her questions and concerns were addressed to the best of my ability and shared decision making. She is agreeable to plan of care. (2) Left breast lump: Code(s): N63.20 - Unspecified lump in the left breast, unspecified quadrant Orders: Orders US breast LT complete Today N63.20 - Unspecified lump in the left breast, unspecified quadrant MM tomosynthesis diagnostic BI Today N63.20 - Unspecified lump in the left breast, unspecified quadrant, Z12.31 - Encounter for screening mammogram for malignant neoplasm of breast Coding Level of Care Code Est Pt Level 3 (26312) Diagnoses Rash and nonspecific skin eruption R21 Left breast lump N63.20
[2023-03-03 14:48] VITALS: BP 120/70; BMI 35.1
== END 2023-03-03 15:21 | disposition home or self-care (01) ==
LOC: HO.HWS 14:39
PROVIDERS: PCP Hospitalist; Visit Provider Advanced Practice Midwife
DX: R21 Rash and other nonspecific skin eruption (principal); N63.20 Unspecified lump in the left breast, unspecified quadrant
CPT/HCPCS: 99213

== ENCOUNTER → 2023-03-03 14:39 | Outpatient (BNVA) | payer OTHER, SELFPAY | PROVIDERS: PCP Hospitalist; Visit Provider Advanced Practice Midwife | DX: N63.20 Unspecified lump in the left breast, unspecified quadrant (principal); R21 Rash and other nonspecific skin eruption | CPT/HCPCS: 99212 ==

== ENCOUNTER 2023-03-15 23:39 | Emergency (ER) | payer OTHER, SELFPAY ==
[2023-03-16] VITALS: BP 154/90; PULSE 99; RESP 18; TEMP 36.3; O2SAT 99; BMI 34.9
--- NOTE | 2023-03-16 | ECG_ITS ---
Test Reason : CHEST PAIN Blood Pressure : / mmHG Vent. Rate : 091 BPM Atrial Rate : 091 BPM P-R Int : 146 ms QRS Dur : 084 ms QT Int : 342 ms P-R-T Axes : 057 024 006 degrees QTc Int : 420 ms Normal sinus rhythm Nonspecific T wave abnormality Abnormal ECG No previous ECGs available Referred By: Generic ED Physician Electronically Signed By:JACQUELYN HERNANDEZ MD
[2023-03-16 00:24] LABS: MANUAL DIFF FLAG NO
[2023-03-16 00:40] LABS: Alanine Aminotransferase 23 U/L (0-31); Alkaline Phosphatase 94 U/L (39-117); Anion Gap 14 (12-20); Aspartate Amino Transferase 14 U/L (5-31); Basophils Absolute Auto 0.1 X10*3/uL (0.0-0.2); Basophils Percent Auto 0.6 % (0-2); Bilirubin Total 0.3 mg/dL (0.0-1.0); Blood Urea Nitrogen 7 mg/dL (9-16); Calcium 9.4 mg/dL (8.4-10.2); Carbon Dioxide 22 mmol/L (22-29); Chloride 107 mmol/L (96-108); Creatinine Clr Calc Pharmacy 97.3; Eosinophils Absolute Auto 0.2 X10*3/uL (0.0-0.4); Eosinophils Percent Auto 1.8 % (0-4); Estimated Glomerular Filt Rate > 60; Glucose Random 96 mg/dL (60-115); Hematocrit 37.6 % (37.0-47.0); Imm Gran Abs Auto 0.04 X10*3/uL (0.00-0.03); Imm Gran Pct Auto 0.4 % (0.0-0.4); Lymphocytes Absolute Auto 2.9 X10*3/uL (1.2-4.9); Lymphocytes Percent Auto 28.9 % (20-40); Mean Corpuscular HGB Conc 34.6 g/dl (31.0-35.0); Mean Corpuscular Hemoglobin 29.6 pg (27.0-33.0); Mean Corpuscular Volume 85.6 fL (80.0-98.0); Mean Platelet Volume 10.1 fL (9.4-12.3); Monocytes Absolute Auto 0.8 X10*3/uL (0.1-1.2); Monocytes Percent Auto 7.9 % (2-11); Neutrophils Percent Auto 60.4 % (45-73); Platelet Count 268 X10*3/uL (160-400); Potassium 4.1 mmol/L (3.3-5.1); Red Blood Count 4.39 X10*6/uL (4.20-5.50); Red Cell Distribution Width 13.2 % (11.0-16.0); Sodium 139 mmol/L (135-145); White Blood Count 9.9 X10*3/uL (4.8-10.8)
[2023-03-16 00:47] LABS: Troponin-I High Sensitivity < 2.7 ng/L (<3.5-17.0)
--- NOTE | 2023-03-16 00:52 | ED_ITS ---
HPI - Chest Pain General Chief Complaint: Chest Pain Stated Complaint: arm/shoulder pain Time Seen by Provider: 03/16/23 00:52 Source: patient Mode of arrival: ambulatory Limitations: no limitations History of Present Illness HPI narrative: Patient been having pain on the left mid chest going to the left shoulder i ncreases on palpation and movements no shortness of breath no cough no fever or chills Related Data Previous Rx's Medication Instructions Recorded atenolol 25 mg tablet 25 mg PO DAILY #90 tabs 04/03/22 blood pressure test kit-large #1 ea 10/09/22 omeprazole 40 mg capsule,delayed 40 mg PO QAM #90 caps 10/09/22 release bisacodyl 5 mg tablet,delayed 5 mg PO BEDTIME 10 days #10 tabs 10/15/22 release (Dulcolax (bisacodyl)) naproxen 500 mg tablet 500 mg PO BID PRN pain #20 tabs 10/29/22 ondansetron 4 mg disintegrating 4 mg PO Q8H PRN nausea and 12/20/22 tablet vomiting #10 tabs ketoconazole 2 % topical cream 1 appl topical DAILY #30 grams 02/17/23 ketoconazole 2 % topical cream 1 appl topical DAILY #30 grams 02/17/23 cetirizine 10 mg tablet (Zyrtec) 10 mg PO DAILY #90 tabs 02/24/23 clotrimazole-betamethasone 1 1 appl topical BID fungal rash 7 02/27/23 %-0.05 % topical cream days #45 grams sulfamethoxazole 800 1 tab PO BID 10 days #20 tabs 02/27/23 mg-trimethoprim 160 mg tablet (Bactrim DS) ibuprofen 600 mg tablet 600 mg PO Q6H PRN fever or pain 03/16/23 #30 tabs Allergies Allergy/AdvReac Type Severity Reaction Status Date / Time aspirin [ASPIRIN] Allergy Mild BRUISES, Verified 03/15/23 23:59 rash penicillin G Allergy Mild Hives Verified 03/15/23 23:59 Review of Systems Review of Systems: Yes all other systems are reviewed and are negative [facility] Past Medical History Medical History Left breast lump Surgical History History of section History of foot surgery History of tubal ligation Family History Family History Father Lupus Arthritis Mother Hypertension Sister Ovarian cancer Sister Hypoglycemia Paternal Grandfather Lung cancer Social History Social History Housing: Apartment Alcohol intake: current Alcohol intake frequency: holidays/special occasions only Alcohol type: wine Patient Tobacco Use Status: Never used Tobacco e-Cigarette/Vaping Use: Never Used Second Hand Smoke Exposure: No Advance Directives: No Advance Directives Information Provided: No service: No Current occupational status: employed 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 Oriented X3. No acute distress. ENT: Pharynx normal. Oral Mucosa moist Neck: Normal inspection. Neck supple. CVS: Normal heart rate and rhythm. Pulses normal. Respiratory: No respiratory distress. Equal air entry bilateral, no wheezing/rales/rhonchi left 2nd intercostal space tenderness Abdomen: Soft and nontender. Bowel sounds are present, no mass palpable, no CVA tenderness Skin: Skin warm and dry. Normal skin color. Normal skin turgor. Extremities: No lower extremity edema. No calf tenderness Neuro: Oriented X 3. No motor deficit. Medical Decision Making Medical Decision Making MDM Narrative: Patient with atypical chest pain EKG normal high sensitive troponin negative advised patient to follow-up with PCP take ibuprofen for pain Differential Diagnosis Differential Diagnoses: The differential diagnosis associated with the presentation includes Chest wall pain/ACS/pneumothorax/pneumonia Lab Data [facility] Lab Attestation statement: I reviewed the patient's lab results. 03/16/23 00:18 03/16/23 00:18 Labs: Lab Results 03/16/23 03/16/23 03/16/23 Range/Units 00:18 00:18 00:18 WBC 9.9 (4.8-10.8) X10*3/uL RBC 4.39 (4.20-5.50) X10*6/uL Hgb 13.0 (12.0-16.0) g/dl Hct 37.6 (37.0-47.0) % MCV 85.6 (80.0-98.0) fL MCH 29.6 (27.0-33.0) pg MCHC 34.6 (31.0-35.0) g/dl RDW 13.2 (11.0-16.0) % Plt Count 268 (160-400) X10*3/uL MPV 10.1 (9.4-12.3) fL Immature Gran % (Auto) 0.4 (0.0-0.4) % Neut % (Auto) 60.4 (45-73) % Lymph % (Auto) 28.9 (20-40) % [place] % (Auto) 7.9 (2-11) % Eos % (Auto) 1.8 (0-4) % Baso % (Auto) 0.6 (0-2) % Lymph # (Auto) 2.9 (1.2-4.9) X10*3/uL [place] # (Auto) 0.8 (0.1-1.2) X10*3/uL Eos # (Auto) 0.2 (0.0-0.4) X10*3/uL Baso # (Auto) 0.1 (0.0-0.2) X10*3/uL Abs Immat Gran (auto) 0.04 H (0.00-0.03) X10*3/uL Absolute Neuts (auto) 6.0 (2.0-8.3) x10*3/uL Absolute Nucleated RBC 0.000 (0.0-0.012) X10*3/uL Nucleated RBC % (auto) 0.0 (0.0-0.2) /100WBC Sodium 139 (135-145) mmol/L Potassium 4.1 (3.3-5.1) mmol/L Chloride 107 (96-108) mmol/L Carbon Dioxide 22 (22-29) mmol/L Anion Gap 14 (12-20) BUN 7 L (9-16) mg/dL Creatinine 0.68 (0.5-1.4) mg/dL Estim Creat Clear Calc 97.3 Estimated GFR > 60 Random Glucose 96 (60-115) mg/dL Calcium 9.4 (8.4-10.2) mg/dL Total Bilirubin 0.3 (0.0-1.0) mg/dL AST 14 (5-31) U/L ALT 23 (0-31) U/L Alkaline Phosphatase 94 (39-117) U/L Troponin I High Sens < 2.7 (<3.5-17.0) ng/L Total Protein 7.0 (6.5-8.0) g/dL Albumin 4.0 (3.5-5.0) g/dL Independent Interpretation I performed an independent interpretation of an: EKG Interpretation: Normal sinus rhythm heart rate 91 beats per minute nonspecific T-wave changes no acute ST-T changes no acute ischemia Discharge Plan Discharge Clinical Impression: Costalchondritis Patient Disposition: Home, Self-Care Instructions: Costochondritis (ED) Additional Instructions: Your chest pain is from the inflammation the cartilage Take ibuprofen for pain as prescribed Follow-up with PCP Tu dolor de pecho es por la inflamaci?n del cart?candie. [place] ibuprofeno para el dolor seg?n lo prescrito Seguimiento con PCP Prescriptions: New ibuprofen 600 mg tablet 600 mg PO Q6H PRN (Reason: fever or pain) Qty: 30 0RF No Action bisacodyl [Dulcolax (bisacodyl)] 5 mg tablet,delayed release (DR/EC) 5 mg PO BEDTIME 10 Days Qty: 10 0RF ondansetron 4 mg tablet,disintegrating 4 mg PO Q8H PRN (Reason: nausea and vomiting) Qty: 10 0RF cetirizine [Zyrtec] 10 mg tablet 10 mg PO DAILY Qty: 90 0RF atenolol 25 mg tablet 25 mg PO DAILY Qty: 90 3RF naproxen 500 mg tablet 500 mg PO BID PRN (Reason: pain) Qty: 20 0RF omeprazole 40 mg capsule,delayed release(DR/EC) 40 mg PO QAM Qty: 90 2RF (DME) blood pressure test kit-large Kit See Rx Instructions .ROUTE .MEDSUPPLY Qty: 1 0RF Rx Instructions: As directed ketoconazole 2 % cream 1 appl topical DAILY Qty: 30 1RF ketoconazole 2 % cream 1 appl topical DAILY Qty: 30 1RF clotrimazole-betamethasone 1-0.05 % cream 1 appl topical BID 7 Days Qty: 45 1RF Rx Instructions: do not use Ketoconazole at the same time sulfamethoxazole-trimethoprim [Bactrim DS] 800-160 mg tablet 1 tab PO BID 10 Days Qty: 20 0RF Print Language: Guyanese
[2023-03-16] MEDS: Ibuprofen 600 MG TABLET PO (01:20)
[2023-03-16 01:21] VITALS: BP 123/72; PULSE 82; RESP 18; TEMP 36.6; O2SAT 99
== END 2023-03-16 01:23 | disposition home or self-care (01) ==
PROVIDERS: Emergency Provider Internal Medicine; PCP Hospitalist
DX: M94.0 Chondrocostal junction syndrome [Tietze] (principal); I10 Essential (primary) hypertension; Z79.899 Other long term (current) drug therapy
CPT/HCPCS: 36415; 80053; 84484; 85025; 93005; 99284

== ENCOUNTER → 2023-03-16 00:10 | Outpatient (BNV) | payer OTHER, SELFPAY | PROVIDERS: Emergency Provider Internal Medicine; PCP Hospitalist; Visit Provider Internal Medicine Cardiovascular Disease | DX: R07.9 Chest pain, unspecified (principal); R94.31 Abnormal electrocardiogram [ECG] [EKG] | CPT/HCPCS: 93010 ==

== ENCOUNTER 2023-09-29 10:22 | Outpatient (AMB) | payer OTHER, SELFPAY ==
--- NOTE | 2023-09-29 10:26 | MHC.PC.OV ---
Vital Signs 09/29/23 10:27 Height 4 ft 9 in Weight 162 lb BMI 35.1 BP 117/73 Blood Pressure Location Lt brachial Position Sitting Respiration 13 Pulse 68 Pulse Source Pulse Oximeter Temp 98.2 F Temp Source Temporal Artery Scan Pulse Oximetry (%) 98 Oxygen Delivery Method Room Air Intake Visit Reasons: ZAHIDA from [facility] Intake Note: Patient is here for a transfer of care from to . Patient reports she was getting a work up for Lupus with and she was going to refer her to a specialist and she never did. Assistant Professor Of Philosophy Required: Yes Assistant Professor Of Philosophy Name: Annette Leo Accompanied by: Self / Same As Patient Allergies aspirin [ASPIRIN] Allergy (Mild, Verified 09/29/23 11:25) BRUISES, rash penicillin G Allergy (Mild, Verified 09/29/23 11:25) Hives Medication List - Last Reconciled 09/29/23 by Augustina Serna, [facility]- atenolol 25 mg PO DAILY blood pressure test kit-large As directed cetirizine (Zyrtec) 10 mg PO DAILY gabapentin 300 mg PO DAILY naproxen 500 mg PO BID PRN omeprazole 40 mg PO QAM ondansetron 4 mg PO Q8H PRN sulfamethoxazole-trimethoprim 800-160 mg (Bactrim DS) 1 tab PO BID 10 days Tobacco use date assessed: 09/25/22 HPI HPI Comments History of Present Illness Details 33-year-old female with fatty liver (us 09/12/22), hypertension, GERD, constipation, bilat carpal tunnel, kidney stones, osteoarthritis, menorrhagia, allergic urticaria, ovarian cyst, generalized myalgia Status post tubal ligation, x3, foot surgery 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 Does have a history of abnormal Pap with HPV previously Here today to [facility] Annette Landrum Int [id number] Pain in hands, referred to jamie arndt (SONNY), was given injection but it cont. Was supposed to f/u in 6 months, reports visit was not scheduled. Pain is worse in the left hand. Cont with the pain. Would like a referral to further manage. Discussed SONNY, [facility] Pain mgmt vs Hand specialists. She is interested in seeing a hand specialist. Interested in routine lab repeat last labs from her previous PCP reviewed with her today. Needs a refill on all of her medications. Reports that she was using gabapentin 300 mg daily to help with her chronic pain. She has been without this medication since April 2023 when her PCP left. She would like to reinitiate this. In addition she is using naproxen to help with her pain and this has been effective. She needs a refill. Her hypertension is being managed with atenolol. She was reports insomnia. Falls asleep but is only able to stay asleep for 2-3 hours. Has not tried any medication for this in the past and is interested in this today. [facility] Medical History (Updated 09/29/23 @ 17:35 by HYUN Gomez-MARIBEL) Carpal tunnel syndrome on both sides Kidney stone History of irregular menstrual cycles Hx of abnormal cervical Pap smear Left breast lump Surgical History (Updated 09/29/23 @ 07:49 by HYUN Gomez-MARIBEL) History of foot surgery History of section History of tubal ligation Family History Father Lupus Arthritis Mother Hypertension Sister Ovarian cancer Sister Hypoglycemia Paternal Grandfather Lung cancer Social History (Updated 09/29/23 @ 10:37 by Suri Membreno CMA) Household Members: Spouse and Children Household Members Other:: 3 kids Housing: Apartment Alcohol intake: current Alcohol intake frequency: holidays/special occasions only Alcohol type: wine Patient Tobacco Use Status: Never used Tobacco e-Cigarette/Vaping Use: Never Used Second Hand Smoke Exposure: No service: No Current occupational status: employed 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 1. Little interest or pleasure in doing things: not at all 2. Feeling down, depressed, or hopeless: not at all 3. Trouble falling or staying asleep, or sleeping too much: not at all 4. Feeling tired or having little energy: not at all 5. Poor appetite or overeating: not at all 6. Feeling bad about yourself - or that you are a failure or have let yourself or your family down: not at all 7. Trouble concentrating on things, such as reading the newspaper or watching television: not at all 8. Moving or speaking so slowly that other people could have noticed. Or the opposite - being so fidgety or restless that you have been moving around a lot more than usual: not at all 9. Thoughts that you would be better off or of hurting yourself in some way: not at all Total score: 0 Depression Screening Interpretation: Negative Depression Screening Done: Yes 21288 - PHQ-9 Billing: Yes Source: Developed by Drs. Serafin Land, Marimar Eric, Catarino Valenzuela and colleagues, with an educational sailaja from [employer]. Thrive Questionnaire Date Thrive assessed: 09/29/23 I am a: Patient What is your living situation today?: I have a steady place to live Within the past 12 months, did the food you bought not last and you didn't have the money to get more?: Never true Within the past 12 months, did you worry whether your food would run out before you got money to buy more?: Never true Do you have trouble paying for medicines?: No Do you have trouble getting transportation to medical appointments?: No Do you have trouble paying your heating and electricity bill?: No Do you have trouble taking care of your child, family member or friend?: No Do you have trouble with day-to-day activities such as bathing, preparing meals, shopping, managing finances, etc.?: No Are you currently unemployed and looking for a job?: No Are you interested in more education?: No Please select the resources that you would like help with: None Currently or been in a relationship where the following occur: no concerns reported THRIVE Score: 0 AUDIT C Alcohol Use Questionnaire (AUDIT-C) 1. How often do you have a drink containing alcohol?: Monthly or less Total Score: 1 Score Reviewed/Action Taken: Yes DHAVAL-7 AMB Questionnaire DHAVAL-7 Date DHAVAL - 7 assessed: 09/29/23 Feeling nervous, anxious, or on edge: 0 = Not at all Not being able to stop or control worryin = Not at all Worrying too much about different things: 0 = Not at all Trouble relaxin = Not at all Being so restless that it is hard to sit still: 0 = Not at all Becoming easily annoyed or irritable: 0 = Not at all Feeling afraid as if something awful might happen: 0 = Not at all Total DHAVAL-7 score (0-4 normal; 5-9 mild; 10-14 moderate; 15-21 severe): 0 Source: Developed by Drs. Serafin Land, Marimar Eric, Catarino Valenzuela and colleagues, with an educational sailaja from [employer]. DHAVAL-7 Assessment Billing DHAVAL-7 Assessment Tool: DHAVAL-7 Assessment 36781 Review of Systems Const All systems reviewed & are unremarkable except as noted in HPI and below Physical exam (Primary Care) Vital Signs: Last Vital Signs Temp 98.2 F 09/29/23 10:27 Pulse 68 09/29/23 10:27 Resp 13 09/29/23 10:27 BP 117/73 09/29/23 10:27 Pulse Ox 98 09/29/23 10:27 Oxygen Delivery Method Room Air 09/29/23 10:27 BMI result Body Mass Index 35.1 Tobacco/Smoking Status: Tobacco use Status Tobacco use date assessed 09/25/22 09/29/23 10:35 Patient Tobacco Use Status Never used Tobacco 09/29/23 10:37 e-Cigarette/Vaping Use Never Used 09/29/23 10:37 PHQ-9: PHQ-9 Score PHQ-9: Total score 0 09/29/23 11:23 Depression Screening Interpretation: Negative Thrive Assessment: Date of Thrive Assessment Date Thrive assessed 09/29/23 09/29/23 10:37 Currently or been in a relationship where the following occur: no concerns reported Const Other: Awake alert oriented Sclera is nonicteric bilat Mucous membranes moist Regular rate and rhythm Lung sounds clear to auscultation bilat Abdomen soft, no hepatomegaly + Tinel and Phalen's on the left, mildly positive on the right otherwise neurovascularly intact Mood and affect appropriate Assessment and Plan Assessment & Plan (1) Carpal tunnel syndrome on both sides: Comment: referred to [facility] and PT; advised to wear braces at HS. Had cortisone injection. Cont w/ pain. Therefore referred to hand surgery today for further eval and tx. Has prescriptions for naproxen and gabapentin which she can continue to use for the pain as needed. Code(s): G56.03 - Carpal tunnel syndrome, bilateral upper limbs (2) Fatty liver: Comment: US 09/12/2022; will check LFTs today Code(s): K76.0 - Fatty (change of) liver, not elsewhere classified (3) Hypertension, essential: Comment: controlled with atenolol 25mg QD. Cont. Goal < 140/80 Code(s): I10 - Essential (primary) hypertension (4) GERD (gastroesophageal reflux disease): Comment: Managed on omeprazole. Code(s): K21.9 - Gastro-esophageal reflux disease without esophagitis Qualifiers: Esophagitis presence: without esophagitis Qualified Code(s): K21.9 - Gastro-esophageal reflux disease without esophagitis (5) Insomnia: Comment: We will try mirtazapine. Advised to take daily. We will bring her back in a few weeks to see if this is working for her. Code(s): G47.00 - Insomnia, unspecified Qualifiers: Insomnia type: other insomnia Qualified Code(s): G47.09 - Other insomnia (6) Severe obesity (BMI 35.0-35.9 with comorbidity): Comment: Lifestyle modifications encouraged Code(s): E66.01 - Morbid (severe) obesity due to excess calories; Z68.35 - Body mass index [BMI] 35.0-35.9, adult Plan Total time spent caring for the patient today was 60 minutes. This includes time spent before the visit reviewing the chart, time spent during the visit, and time spent after the visit on documentation This note is constructed using voice recognition software. While every effort has been made to ensure accuracy in carpenter rough, still errors may have been included Sometimes, these errors may affect the content or meaning of the given sentence . Orders: Orders Comprehensive [place]. Panel Fast Today I10 - Essential (primary) hypertension, K76.0 - Fatty (change of) liver, not elsewhere classified Lipid Panel Today I10 - Essential (primary) hypertension, K76.0 - Fatty (change of) liver, not elsewhere classified TSH reflex Free T4 Today I10 - Essential (primary) hypertension, K76.0 - Fatty (change of) liver, not elsewhere classified Vitamin D 1,25 dihydroxy Today I10 - Essential (primary) hypertension, K76.0 - Fatty (change of) liver, not elsewhere classified Referrals Hand Surgery Referral G56.03 - Carpal tunnel syndrome, bilateral upper limbs Medications: New mirtazapine 7.5 mg PO BEDTIME 30 tabs 0RF gabapentin 300 mg PO DAILY 90 caps 0RF 90 days Refilled naproxen 500 mg PO BID PRN 60 tabs 0RF pain atenolol 25 mg PO DAILY 90 tabs 0RF cetirizine (Zyrtec) 10 mg PO DAILY 90 tabs 2RF L50.9 - Urticaria, unspecified omeprazole 40 mg PO QAM 90 caps 0RF Coding Level of Care Code Est Pt Level 5 (22679) Diagnoses Carpal tunnel syndrome on both sides G56.03 Fatty liver K76.0 Hypertension, essential I10 Gastroesophageal reflux disease without esophagitis K21.9 Esophagitis presence: without esophagitis Other insomnia G47.09 Insomnia type: other insomnia Severe obesity (BMI 35.0-35.9 with comorbidity) E66.01; Z68.35 Additional Codes DHAVAL-7 Assessment Billing - DHAVAL-7 Assessment Tool: DHAVAL-7 Assessment 93470 ([id number])
[2023-09-29 10:27] VITALS: BP 117/73; PULSE 68; RESP 13; TEMP 36.8; O2SAT 98; BMI 35.1
== END 2023-09-29 11:45 | disposition home or self-care (01) ==
PROVIDERS: PCP Hospitalist; Visit Provider Nurse Practitioner Family
DX: G56.03 Carpal tunnel syndrome, bilateral upper limbs (principal); I10 Essential (primary) hypertension; E66.01 Morbid (severe) obesity due to excess calories; Z68.35 Body mass index [BMI] 35.0-35.9, adult; K76.0 Fatty (change of) liver, not elsewhere classified; K21.9 Gastro-esophageal reflux disease without esophagitis; G47.09 Other insomnia
CPT/HCPCS: 99215

== ENCOUNTER 2023-09-29 11:40 | Outpatient (REF) | payer OTHER, SELFPAY ==
[2023-09-29 15:00] LABS: Alanine Aminotransferase 25 U/L (0-31); Albumin Level 4.1 g/dL (3.5-5.0); Alkaline Phosphatase 90 U/L (39-117); Anion Gap 11 (12-20); Aspartate Amino Transferase 19 U/L (5-31); Bilirubin Total 0.6 mg/dL (0.0-1.0); Blood Urea Nitrogen 9 mg/dL (9-16); Calcium 9.4 mg/dL (8.4-10.2); Carbon Dioxide 26 mmol/L (22-29); Chloride 106 mmol/L (96-108); Cholesterol 202 mg/dL (<200); Estimated Glomerular Filt Rate > 60; Glucose Fasting 81 mg/dL (60-99); HDL Cholesterol 51 mg/dL (>40); LDL Cholesterol Calculated 122 mg/dL (<100); Potassium 3.9 mmol/L (3.3-5.1); Sodium 139 mmol/L (135-145); Total Protein 7.3 g/dL (6.5-8.0); Triglycerides 147 mg/dL (<150)
[2023-09-29 15:25] LABS: TSH reflex Free T4 0.69 uIU/mL (0.32-4.0)
[2023-10-06 01:05] LABS: VITAMIN D (1,25 OH) D3 58 pg/mL; Vit D (1,25-Dihydroxy) Total 58 pg/mL (18-72); Vitamin D (1,25 OH) D2 <8 pg/mL
== END 2023-09-29 11:41 | disposition home or self-care (01) ==
LOC: HO.WFDLDS 11:40
PROVIDERS: Visit Provider Nurse Practitioner Family
DX: Z00.00 Encounter for general adult medical examination without abnormal findings (principal); K76.0 Fatty (change of) liver, not elsewhere classified; I10 Essential (primary) hypertension
CPT/HCPCS: 36415; 80053; 80061; 82652; 84443

== ENCOUNTER 2023-10-14 09:52 | Outpatient (AMB) | payer OTHER, SELFPAY ==
--- NOTE | 2023-10-14 10:20 | A.OFFPC_ITS ---
Vital Signs 10/14/23 10:22 Height 4 ft 9 in Weight 163 lb 0.4 oz BMI 35.3 BP 122/80 Blood Pressure Location Lt brachial Position Sitting Pulse 97 Pulse Source Pulse Oximeter Pulse Oximetry (%) 98 Oxygen Delivery Method Room Air Intake Visit Reasons: desire ibrahim, review labs Intake Note: Patient is here to follow up on insomnia, review labs Steam Frame Operator Required: Yes Steam Frame Operator Language: Luxembourger Allergies aspirin [ASPIRIN] Allergy (Mild, Verified 10/14/23 10:24) BRUISES, rash penicillin G Allergy (Mild, Verified 10/14/23 10:24) Hives Medication List - Last Reconciled 10/14/23 by Augustina Serna, [facility]- atenolol 25 mg PO DAILY blood pressure test kit-large As directed cetirizine (Zyrtec) 10 mg PO DAILY gabapentin 300 mg PO DAILY 90 days mirtazapine 7.5 mg PO BEDTIME naproxen 500 mg PO BID PRN omeprazole 40 mg PO QAM Tobacco use date assessed: 10/14/23 HPI HPI Comments History of Present Illness Details 33-year-old female with fatty liver (us 09/12/22), hypertension, GERD, constipation, bilat carpal tunnel, kidney stones, osteoarthritis, menorrhagia, allergic urticaria, ovarian cyst, generalized myalgia, obesity, insomnia Status post tubal ligation, x3, foot surgery 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 Since last time, she developed COVID; this occurred 2 days after last visit. She is feeling better. She wonders if she can take vitamin-C to prevent her from getting sick. 09/29/23 WNL except borderline hyperlipidemia LDL 122, TC 202 reviewed with her today. New complaint is a spinning sensation in the left eye. Pain in the left eye. Started a few months ago. Would like to see an eye doctor. In regards to the mirtazapine use for insomnia she was unable to start this as she was ill with COVID and was feeling very tired with this. She will start the medication tonight. [facility] Medical History (Updated 10/14/23 @ 12:48 by HYUN Gomez-MARIBEL) Carpal tunnel syndrome on both sides Kidney stone History of irregular menstrual cycles Hx of abnormal cervical Pap smear Left breast lump Surgical History (Updated 09/29/23 @ 07:49 by HYUN Gomez-MARIBEL) History of foot surgery History of section History of tubal ligation Family History Father Lupus Arthritis Mother Hypertension Sister Ovarian cancer Sister Hypoglycemia Paternal Grandfather Lung cancer Social History (Updated 09/29/23 @ 10:37 by Suri Membreno CMA) Household Members: Spouse and Children Household Members Other:: 3 kids Housing: Apartment Alcohol intake: current Alcohol intake frequency: holidays/special occasions only Alcohol type: wine Patient Tobacco Use Status: Never used Tobacco e-Cigarette/Vaping Use: Never Used Second Hand Smoke Exposure: No service: No Current occupational status: employed 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 Depression Screening Interpretation: Negative Depression Screening Done: Yes Source: Developed by Drs. Serafin Land, Catarino Suresh and colleagues, with an educational sailaja from [employer]. Thrive Questionnaire Date Thrive assessed: 09/29/23 Currently or been in a relationship where the following occur: no concerns reported THRIVE Score: 0 AUDIT C Alcohol Use Questionnaire (AUDIT-C) 1. How often do you have a drink containing alcohol?: Monthly or less Total Score: 1 Score Reviewed/Action Taken: Yes DHAVAL-7 AMB Questionnaire DHAVAL-7 Date DHAVAL - 7 assessed: 09/29/23 Source: Developed by Drs. Serafin Land, Catarino Suresh and colleagues, with an educational sailaja from [employer]. Review of Systems Const All systems reviewed & are unremarkable except as noted in HPI and below Physical exam (Primary Care) Vital Signs: Last Vital Signs Pulse 97 10/14/23 10:22 BP 122/80 10/14/23 10:22 Pulse Ox 98 10/14/23 10:22 Oxygen Delivery Method Room Air 10/14/23 10:22 BMI result Body Mass Index 35.3 Tobacco/Smoking Status: Tobacco use Status Tobacco use date assessed 10/14/23 10/14/23 10:27 Patient Tobacco Use Status Never used Tobacco 10/14/23 10:21 e-Cigarette/Vaping Use Never Used 10/14/23 10:21 Depression Screening Interpretation: Negative Thrive Assessment: Date of Thrive Assessment Date Thrive assessed 09/29/23 10/14/23 10:21 Currently or been in a relationship where the following occur: no concerns reported Const Other: Awake alert oriented Sclera is nonicteric bilat Mucous membranes moist Regular rate and rhythm Lung sounds clear to auscultation bilat Mood and affect appropriate Assessment and Plan Assessment & Plan (1) Hypertension, essential: Comment: controlled with atenolol 25mg QD. Cont. Goal < 140/80 Code(s): I10 - Essential (primary) hypertension (2) Blurred vision, left eye: Code(s): H53.8 - Other visual disturbances Plan: Refer to ophthalmology for further evaluation and treatment (3) Insomnia: Comment: We will try mirtazapine. Advised to take daily. We will bring her back in a few weeks to see if this is working for her. Code(s): G47.00 - Insomnia, unspecified Qualifiers: Insomnia type: other insomnia Qualified Code(s): G47.09 - Other insomnia (4) Personal history of COVID-19: Comment: Developed symptoms 2 weeks ago. Resolved on own without intervention. Code(s): Z86.16 - Personal history of COVID-19 (5) Fatty liver: Comment: US 09/12/2022; LFTs 09/29/2023 within normal limits Code(s): K76.0 - Fatty (change of) liver, not elsewhere classified Plan: This note is constructed using voice recognition software. While every effort has been made to ensure accuracy in field account director, still errors may have been included Sometimes, these errors may affect the content or meaning of the given sentence . Total time spent caring for the patient today was 45 minutes. This includes time spent before the visit reviewing the chart, time spent during the visit, and time spent after the visit on documentation Orders: Referrals Ophthalmology Referral H53.8 - Other visual disturbances, I10 - Essential (primary) hypertension Patient Instructions: Return to office in 2-3 weeks to follow up on effectiveness of the mirtazapine for insomnia Coding Level of Care Code Est Pt Level 5 (73046) Diagnoses Hypertension, essential I10 Blurred vision, left eye H53.8 Other insomnia G47.09 Insomnia type: other insomnia Personal history of COVID-19 Z86.16 Fatty liver K76.0
[2023-10-14 10:22] VITALS: BP 122/80; PULSE 97; O2SAT 98; BMI 35.3
== END 2023-10-14 10:53 | disposition home or self-care (01) ==
PROVIDERS: PCP Hospitalist; Visit Provider Nurse Practitioner Family
DX: I10 Essential (primary) hypertension (principal); H53.8 Other visual disturbances; G47.09 Other insomnia; Z86.16 Personal history of COVID-19; K76.0 Fatty (change of) liver, not elsewhere classified
CPT/HCPCS: 99215

== ENCOUNTER 2023-11-04 10:02 | Outpatient (AMB) | payer OTHER, SELFPAY ==
--- NOTE | 2023-11-04 10:07 | A.OFFVIS_ITS ---
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 Patient reports pain, numbness and tingling that radiates into her wrist with the left hand being the worse. States symptoms have been present for a while however the past year her symptoms have gotten worse. She has 2 lumps in her left wrist area that are tender to the touch. Hx of injection with no relief. Finds no relief with naproxen. 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 She states she has pain as well as intermittent numbness and tingling in her bilateral hands which radiates into her wrist. Her symptoms are worse on her left hand. She also c/o mild swelling in her hands. She had an EMG study performed for her hands about 2 years ago. She reports she has 2 lumps on her left wrist which are tender to touch. She had injections in the past which did not provide her any relief. She finds no relief with naproxen. [facility] Medical History (Updated 10/14/23 @ 12:48 by Augustina Serna, HYUN-MARIBEL) Carpal tunnel syndrome on both sides Kidney stone History of irregular menstrual cycles Hx of abnormal cervical Pap smear Left breast lump Surgical History History of foot surgery History of section History of tubal ligation Family History Father Lupus Arthritis Mother Hypertension Sister Ovarian cancer Sister Hypoglycemia Paternal Grandfather Lung cancer Social History (Updated 11/04/23 @ 10:31 by Lesvia Oseguera [facility]) Household Members: Spouse and Children Household Members Other:: 3 kids Housing: Apartment Alcohol intake: current Alcohol intake frequency: holidays/special occasions only Alcohol type: wine Patient Tobacco Use Status: Never used Tobacco e-Cigarette/Vaping Use: Never Used Second Hand Smoke Exposure: No service: No Current occupational status: employed 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, 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 Current occupational exposures/hazards: No Gender identity: Female Cognitive needs: No Hearing needs: No Vision needs: No Female Reproductive History Menstrual Age of Menarche: 10 Review of Systems Const All systems reviewed & are unremarkable except as noted in HPI and below Physical Exam Vital Signs: BMI result Body Mass Index 35.3 Const General: cooperative, healthy appearing, comfortable, no acute distress, well developed and alert Orientation/consciousness: patient oriented x3 HEENT Head: Yes normal to inspection, Yes normocephalic and Yes atraumatic Eyes General: appearance normal, both eyes and all related structures Resp Effort & Inspection: normal respiratory effort and able to speak in complete sentences Cardio Rate: regular rate Peripheral pulses: Peripheral pulses 2+ throughout GI Palpation (GI): Soft to palpation Skin Lesions: no lesions Rashes: no rashes Neuro General: patient oriented x3 Extrem Other: Bilateral wrist: Normal to inspection. Tenderness over the carpal canal. Numbness and tingling over the median nerve distribution of the right hand. Able to make a full fist and fully extend all fingers. Positive Tinel's. in the left Assessment & Plan Assessment & Plan (1) Carpal tunnel syndrome on both sides: Comment: referred to [facility] and PT; advised to wear braces at HS. Had cortisone injection. Cont w/ pain. Therefore referred to hand surgery today for further eval and tx. Has prescriptions for naproxen and gabapentin which she can continue to use for the pain as needed. Code(s): G56.03 - Carpal tunnel syndrome, bilateral upper limbs Plan Given her EMG is over 2 years old, a new nerve conduction study has been ordered to further evaluate the extent of her CTS to discuss potential surgical intervention. She is content with this plan and will see me back once the scan is complete. Orders: Orders NE nerve conduction velocity Today R20.0 - Anesthesia of skin, R20.2 - Paresthesia of skin NE electromyogram (EMG) Today R20.0 - Anesthesia of skin, R20.2 - Paresthesia of skin Patient Instructions: Scribed for Julieta Middleton PA-C, by Bakari Best medical microbiologist, on 11/04/2023 at 10:00 AM EST. I, Julieta Middleton PA-C, have personally reviewed and agree with the information entered by the scribe. Coding Level of Care Code New Pt Level 3 (42135) Diagnoses Carpal tunnel syndrome on both sides G56.03
[2023-11-04 10:20] VITALS: BMI 35.3
== END 2023-11-04 10:42 | disposition home or self-care (01) ==
PROVIDERS: PCP Hospitalist; Visit Provider Physician Assistant
DX: G56.03 Carpal tunnel syndrome, bilateral upper limbs (principal)
CPT/HCPCS: 99203

== ENCOUNTER → 2023-11-04 10:02 | Outpatient (BNVA) | payer OTHER, SELFPAY | PROVIDERS: PCP Hospitalist; Visit Provider Physician Assistant | DX: G56.03 Carpal tunnel syndrome, bilateral upper limbs (principal) | CPT/HCPCS: 99202 ==

== ENCOUNTER 2024-03-01 13:11 | Outpatient (AMB) | payer OTHER, SELFPAY ==
--- NOTE | 2024-03-01 13:19 | MHC.PC.OV ---
Vital Signs 03/01/24 13:22 Height 4 ft 9 in Weight 162 lb BMI 35.1 BP 112/56 L Blood Pressure Location Rt brachial Position Sitting Pulse 68 Pulse Source Pulse Oximeter Pulse Oximetry (%) 99 Oxygen Delivery Method Room Air Intake Visit Reasons: PainOnLegs&Feet Intake Note: Patient reports pain in bilateral legs with pain in bilateral feet as if she is walking on glass/needles x2 months. Patient reports pain in her upper back, especially on the right side with pain radiating to bilateral hands x2 weeks. Sometimes hands feel like they fall asleep and go numb. Allergies aspirin [ASPIRIN] Allergy (Mild, Verified 03/01/24 13:31) BRUISES, rash penicillin G Allergy (Mild, Verified 03/01/24 13:31) Hives Tobacco use date assessed: 10/14/23 HPI HPI Comments History of Present Illness Details 33-year-old female with fatty liver (us 09/12/22), hypertension, GERD, constipation, bilat carpal tunnel, kidney stones, osteoarthritis, menorrhagia, allergic urticaria, ovarian cyst, generalized myalgia, obesity, insomnia presenting for neuropathy Pain in bilateral legs and bilateral feet as if she is walking on glass/needles x2 months.Patient reports pain in her upper back, especially on the right side with pain radiating to bilateral hands x2 weeks. Sometimes hands feel like they fall asleep and go numb. Using gabapentin which she says helps pain but makes her sluggish and tired for the next 2 days Assessment/Plan -Stop gabapentin -Discussed trial of lyrica v cymbalta. She would like to try lyrica. SE profile discussed. She will return in 2 weeks ROS see HPI PHYSICAL EXAM: GENERAL: Alert and oriented x 3. NAD EYES: EOMI. Anicteric. HENT: Moist mucous membranes. No scleral icterus. No cervical lymphadenopathy. LUNGS: Clear to auscultation bilaterally. CARDIOVASCULAR: Regular rate and rhythm. No murmur. No JVD. ABDOMEN: Soft, non-tender +bs EXTREMITIES: No edema. Non-tender. SKIN: No rashes or lesions. Warm. NEUROLOGIC: No focal neurological deficits. CN II-XII grossly intact PSYCHIATRIC: Cooperative. Appropriate mood and affect [facility] Medical History (Updated 03/01/24 @ 13:51 by Sofia Pradhan MD) Carpal tunnel syndrome on both sides Kidney stone History of irregular menstrual cycles Hx of abnormal cervical Pap smear Left breast lump Surgical History History of foot surgery History of section History of tubal ligation Family History Father Lupus Arthritis Mother Hypertension Sister Ovarian cancer Sister Hypoglycemia Paternal Grandfather Lung cancer Social History (Updated 11/04/23 @ 10:31 by STEVE Lott) Household Members: Spouse and Children Household Members Other:: 3 kids Housing: Apartment Alcohol intake: current Alcohol intake frequency: holidays/special occasions only Alcohol type: wine Patient Tobacco Use Status: Never used Tobacco e-Cigarette/Vaping Use: Never Used Second Hand Smoke Exposure: No service: No Current occupational status: employed 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 Serafin Land, Mariamr Eric, Catarino Valenzuela and colleagues, with an educational sailaja from [employer]. Physical exam (Primary Care) Vital Signs: Last Vital Signs Pulse 68 03/01/24 13:22 BP 112/56 L 03/01/24 13:22 Pulse Ox 99 03/01/24 13:22 Oxygen Delivery Method Room Air 03/01/24 13:22 BMI result Body Mass Index 35.1 Tobacco/Smoking Status: Tobacco use Status Tobacco use date assessed 10/14/23 03/01/24 13:21 Patient Tobacco Use Status Never used Tobacco 03/01/24 13:21 e-Cigarette/Vaping Use Never Used 03/01/24 13:21 Thrive Assessment: Date of Thrive Assessment Date Thrive assessed 09/29/23 03/01/24 13:21 Assessment and Plan Assessment & Plan (1) Peripheral neuropathy: Code(s): G62.9 - Polyneuropathy, unspecified Qualifiers: Peripheral neuropathy type: polyneuropathy, unspecified Qualified Code(s): G62.9 - Polyneuropathy, unspecified Plan: stop gabapentin. start lyrica Medications: New pregabalin (Lyrica) 75 mg PO BID 60 caps 3RF Discontinued gabapentin Discontinued Reason: Doctor's Order 300 mg PO DAILY 90 days 90 caps 0RF Coding Level of Care Code Est Pt Level 4 (06991) Diagnoses Peripheral polyneuropathy G62.9 Peripheral neuropathy type: polyneuropathy, unspecified
[2024-03-01 13:22] VITALS: BP 112/56; PULSE 68; O2SAT 99; BMI 35.1
== END 2024-03-01 13:49 | disposition home or self-care (01) ==
PROVIDERS: PCP Hospitalist; Visit Provider Internal Medicine
DX: G62.9 Polyneuropathy, unspecified (principal)
CPT/HCPCS: 99214

== ENCOUNTER 2024-03-03 13:17 | Outpatient (REF) | payer OTHER, SELFPAY ==
--- NOTE | 2024-03-03 13:22 | EMG_ITS ---
Chief complaint: Left more than right wrist pain Reason for referral: Evaluate for Carpal Tunnel Syndrome Referred by: Julieta BILLS Procedure done: Bilateral upper extremities NCS/EMG Precautions and/or limitations: None Polish speaking, seen with electronics worker. The limb temperature was monitored continuously and remained between 32-36 degrees C during the performance of the NCS. Nerve Conduction Studies Anti Sensory Summary Table ?Stim Site NR Onset (ms) Norm Onset (ms) Peak (ms) Norm Peak (ms) O-P Amp (?V) Norm O-P Amp Site1 Site2 Delta-0 (ms) Dist (cm) Gokul (m/s) Norm Gokul (m/s) Left Median Anti Sensory (2nd Digit) Wrist ? 2.9 3.7 <3.6 45.0 >10 Wrist 2nd Digit 2.9 14.0 48 Right Median Anti Sensory (2nd Digit) Wrist ? 2.6 3.3 <3.6 38.7 >10 Wrist 2nd Digit 2.6 14.0 54 Left Ulnar Anti Sensory (5th Digit) Wrist ? 2.0 2.7 <3.7 35.9 >15.0 Wrist 5th Digit 2.0 14.0 70 Right Ulnar Anti Sensory (5th Digit) Wrist ? 2.0 2.6 <3.7 16.5 >15.0 Wrist 5th Digit 2.0 14.0 70 Motor Summary Table ?Stim Site NR Onset (ms) Norm Onset (ms) O-P Amp (mV) Norm O-P Amp iAmp (mV) Amp (1st) (%) Site1 Site2 Delta-0 (ms) Dist (cm) Gokul (m/s) Norm Gokul (m/s) Left Median Motor (Abd Poll Brev) Wrist ? 3.7 <3.9 12.5 >4.5 15.0 100.0 Elbow Wrist 3.3 18.0 55 >45 Elbow ? 7.0 12.7 15.5 101.6 Right Median Motor (Abd Poll Brev) Wrist ? 3.4 <3.9 15.9 >4.5 18.7 100.0 Elbow Wrist 3.0 17.0 57 >45 Elbow ? 6.4 15.8 19.0 99.4 Left Ulnar Motor (Abd Dig Minimi) Wrist ? 2.3 <3.0 9.0 >5 11.2 100.0 B Elbow Wrist 2.7 16.0 59 >45 B Elbow ? 5.0 8.8 11.5 97.8 A Elbow B Elbow 1.3 10.0 77 >45 A Elbow ? 6.3 8.3 11.6 92.2 Right Ulnar Motor (Abd Dig Minimi) Wrist ? 2.3 <3.0 10.4 >5 12.1 100.0 B Elbow Wrist 2.8 17.0 61 >45 B Elbow ? 5.1 10.4 12.4 100.0 A Elbow B Elbow 1.1 10.0 91 >45 A Elbow ? 6.2 10.2 12.2 98.1 Comparison Summary Table ?Stim Site NR Peak (ms) Norm Peak (ms) P-T Amp (?V) Site1 Site2 Delta-P (ms) Norm Delta (ms) Left Median/Radial Dig I Comparison (Digit 1 - 10cm) Median ? 3.1 <2.9 1103.7 Median Radial 1.0 Radial ? 2.1 <2.8 46.6 Right Median/Radial Dig I Comparison (Digit 1 - 10cm) Median ? 1.8 <2.9 25.0 Median Radial 0.2 Radial ? 2.0 <2.8 35.9 EMG ?Side Muscle Nerve Root Ins Act Fibs Psw Amp Dur Poly Recrt Int Pat Comment Right 1stDorInt Ulnar C8-T1 Nml Nml Nml Nml Nml 0 Nml Complete Right FlexCarRad Median C6-7 Nml Nml Nml Nml Nml 0 Nml Complete Right Biceps Musculocut C5-6 Nml Nml Nml Nml Nml 0 Nml Complete Right Triceps Radial C6-7-8 Nml Nml Nml Nml Nml 0 Nml Complete Right Deltoid Axillary C5-6 Nml Nml Nml Nml Nml 0 Nml Complete Left 1stDorInt Ulnar C8-T1 Nml Nml Nml Nml Nml 0 Nml Complete Left FlexCarRad Median C6-7 Nml Nml Nml Nml Nml 0 Nml Complete Left Biceps Musculocut C5-6 Nml Nml Nml Nml Nml 0 Nml Complete Left Triceps Radial C6-7-8 Nml Nml Nml Nml Nml 0 Nml Complete Left Deltoid Axillary C5-6 Nml Nml Nml Nml Nml 0 Nml Complete FINDINGS: Left median sensory nerve showed mildly prolonged peak latency. Significant interlatency difference seen between left median and radial sensory nerves. All other nerves tested were within normal. Concentric needle EMG was performed in selected muscles of the upper extremity. Study did not reveal signs of electric abnormalities as shown in the table above. IMPRESSION: 1. This is an abnormal study. 2. There is electrodiagnostic evidence for left mild median neuropathy at the wrist, consistent with Carpal Tunnel Syndrome. 3. There is no electrodiagnostic evidence for median neuropathy on the right. 4. There is no electrodiagnostic evidence for ulnar neuropathy, brachial plexopathy, or cervical radiculopathy. Thank you for your kind referral. Claire Munroe MD, JAMES Board Certified, [place] Board of [employer] and Rehabilitation (ABPMR) Board Certified, [place] Board of Electrodiagnostic Medicine (ABEM) CODIN [id number] x2 MTDD
== END 2024-03-03 13:18 | disposition home or self-care (01) ==
LOC: HO.NEURO 13:17
PROVIDERS: Visit Provider Physician Assistant
DX: R20.0 Anesthesia of skin (principal); R20.2 Paresthesia of skin
CPT/HCPCS: 95886; 95911

== ENCOUNTER → 2024-03-03 13:22 | Outpatient (BNV) | payer OTHER, SELFPAY | PROVIDERS: Visit Provider Physical Medicine & Rehabilitation | DX: G56.02 Carpal tunnel syndrome, left upper limb (principal); R20.2 Paresthesia of skin; R20.0 Anesthesia of skin | CPT/HCPCS: 95886; 95911 ==

== ENCOUNTER 2024-03-15 10:43 | Outpatient (AMB) | payer OTHER, SELFPAY ==
--- NOTE | 2024-03-15 10:58 | A.OFFVIS_ITS ---
Vital Signs 03/15/24 11:00 Height 4 ft 9 in Weight 162 lb BMI 35.1 Handedness Right Intake Visit Reasons: OV-B/L Hand CTS EMG review-discuss surgery Intake Note: Kath is a 33 year old 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 female who presents today to review bilateral hand EMG results done on 03/03/24 and possibly discuss surgery. Patient express about a week ago her symptoms worsened when she was lying in bed and felt a sudden pain that ran through her left arm and into her hand. She says her hand was completely asleep and when she looked down she noticed her hand had cramped, she was unable to lift her arm and was unable to bend her fingers which lasted her about 20 minutes. She would like to discuss possible surgery starting with the worse hand which is her left. 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 The patient reports that she continues to experience intermittent but daily numbness and tingling of the left hand, primarily in the middle and ring fingers. The patient also reports that she has worsening pain in her ulnar and volar wrist and forearm, and she feels that this may be related to the carpal tunnel syndrome. The patient reports that she has previously had injections into her left wrist, that she states were for her carpal tunnel syndrome. Patient has no other acute complaints or concerns at this time. [facility] Medical History Carpal tunnel syndrome on both sides Kidney stone History of irregular menstrual cycles Hx of abnormal cervical Pap smear Left breast lump Surgical History History of foot surgery History of section History of tubal ligation Family History Father Lupus Arthritis Mother Hypertension Sister Ovarian cancer Sister Hypoglycemia Paternal Grandfather Lung cancer Social History Household Members: Spouse and Children Household Members Other:: 3 kids Housing: Apartment Alcohol intake: current Alcohol intake frequency: holidays/special occasions only Alcohol type: wine Patient Tobacco Use Status: Never used Tobacco e-Cigarette/Vaping Use: Never Used Second Hand Smoke Exposure: No service: No Current occupational status: employed 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 Normal sensation to all other digits in the left hand today. Normal sensation in the tips of all digits of the right hand today. No thenar or intrinsic wasting. Good APB muscle firing and good finger cross. Vascular: Capillary refill brisk. ROM: Patient can make a fist and extend all their digits. Patient reports significant discomfort on the ulnar aspect of the volar left wrist with active flexion and passive extension. Skin: No lacerations or abrasions noted. General: No ecchymosis. No erythema or evidence of infection. Positive Tinel's test at the wrist on the left side Results Reviewed Results Reviewed: IMPRESSION: 1. This is an abnormal study. 2. There is electrodiagnostic evidence for left mild median neuropathy at the wrist, consistent with Carpal Tunnel Syndrome. 3. There is no electrodiagnostic evidence for median neuropathy on the right. 4. There is no electrodiagnostic evidence for ulnar neuropathy, brachial plexopathy, or cervical radiculopathy. Assessment & Plan Assessment & Plan (1) FCU (flexor carpi ulnaris) tenosynovitis: Code(s): M65.9 - Synovitis and tenosynovitis, unspecified Category: Medical (2) Carpal tunnel syndrome of left wrist: Code(s): G56.02 - Carpal tunnel syndrome, left upper limb Category: Medical Plan 1. Carpal tunnel syndrome, left Symptoms intermittent, but daily, worse at night I educated the patient about the condition. I discussed both operative and n onoperative treatment options. The patient would like to proceed with surgery.] The risks and benefits of operative treatment were discussed with the patient and the patient wishes to proceed with surgery. These risks include, but are not limited to, risk of damage to blood vessels, nerves, tendons, infection, recurrence, incomplete relief of preoperative symptoms, persistent pain, possible need for further surgery, and the risks associated with regional blocks and/or anesthesia. Plan is to take the patient to the operating room at some point in the next few weeks for the following procedures: 1. Left carpal tunnel release under local anesthesia All of the preoperative paperwork including the consent was discussed today. All of the patient's questions were answered in the clinic today. The patient understands that they will be in contact with our surgical manager to discuss scheduling their procedure. Patient expresses concerns to whether or not she will be able to work in the i mmediate postoperative period. Patient is informed that if she can adhere to a strict 2 lb weight limit in her left hand after surgery, she can work during the immediate postoperative period. The patient states that she is not sure if she will be able to adhere to this. The patient will find out from her employer as to whether or not they have light duty or if her accompanying will be able to have her adhere to a 2 lb weight limit while performing her normal duties. Patient states that, prior to her preoperative visit, she will speak to her employer about this and we will make a determination of whether she needs time off of work at that time. Patient denies diabetes, blood thinners, asthma, heart issues, lung issues, kidney issues, or current smoking. 2. FCU tendinitis of left wrist Patient reports that symptoms have gotten significantly more bothersome over the last few weeks At this time, I will refer the patient to physical therapy for strengthening, range of motion, stability of the left wrist and of flexor carpi ulnaris tendinitis on the left Patient is amenable to this plan Patient is informed that tendinitis is not typically a short term recovery course of PT, and can take weeks to even months Patient is amenable to this plan Patient will follow-up preoperatively for preop assessment prior to left carpal tunnel release, sooner with any acute concerns. Orders: Orders PT Evaluation and Treatment Today M65.9 - Synovitis and tenosynovitis, unspecified Coding Level of Care Code New Pt Level 4 (69610) Diagnoses FCU (flexor carpi ulnaris) tenosynovitis M65.9 Carpal tunnel syndrome of left wrist G56.02
[2024-03-15 11:00] VITALS: BMI 35.1
== END 2024-03-15 11:58 | disposition home or self-care (01) ==
DX: G56.02 Carpal tunnel syndrome, left upper limb (principal); M65.9 Synovitis and tenosynovitis, unspecified
CPT/HCPCS: 99214

== ENCOUNTER → 2024-03-15 10:43 | Outpatient (BNVA) | payer OTHER, SELFPAY | DX: M65.9 Synovitis and tenosynovitis, unspecified (principal); G56.02 Carpal tunnel syndrome, left upper limb | CPT/HCPCS: 99212 ==

== ENCOUNTER 2024-03-16 10:22 | Outpatient (AMB) | payer OTHER, SELFPAY ==
--- NOTE | 2024-03-16 10:40 | MHC.OFFVIS ---
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: No Information Interpreted: clinical only Mineral Engineer: Mineral Engineer Present Allergies aspirin [ASPIRIN] Allergy (Mild, Verified 03/16/24 10:42) BRUISES, rash penicillin G Allergy (Mild, Verified 03/16/24 10:42) Hives Medication List - Last Reconciled 03/16/24 by Alexandra King CNM atenolol 25 mg PO DAILY blood pressure test kit-large As directed cetirizine (Zyrtec) 10 mg PO DAILY mirtazapine 7.5 mg PO BEDTIME naproxen 500 mg PO BID PRN omeprazole 40 mg PO QAM pregabalin (Lyrica) 75 mg PO BID Is last menstrual period known: Yes Last menstrual period: 03/07/24 Do you need a note to return to daycare/school/sports/work: No HPI HPI 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 Reviewing her history she says she has not diabetic or prediabetic she does have high blood pressure and she was getting evaluated for lupus. She had a change in primary care providers so there has been changes in her appointments and she said she had an appointment with primary care today but she chose to come to this appointment rather than the primary care so that when got canceled. She admits that she has gained about 30 lb in the last couple of years she works at [employer] and it is near fast food places and the culture in the store to share food at work. She is also awaiting surgery on her wrist for carpal tunnel syndrome. She admits that she loves to eat she has a gym membership but she has not used it. She has a tubal ligation so she is not concerned about , PFSH Medical History Carpal tunnel syndrome on both sides Kidney stone History of irregular menstrual cycles Hx of abnormal cervical Pap smear Left breast lump Surgical History History of foot surgery History of section History of tubal ligation Family History Father Lupus Arthritis Mother Hypertension Sister Ovarian cancer Sister Hypoglycemia Paternal Grandfather Lung cancer Social History Household Members: Spouse and Children Household Members Other:: 3 kids Housing: Apartment Alcohol intake: current Alcohol intake frequency: holidays/special occasions only Alcohol type: wine Patient Tobacco Use Status: Never used Tobacco e-Cigarette/Vaping Use: Never Used Second Hand Smoke Exposure: No service: No Current occupational status: employed 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, 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 Current occupational exposures/hazards: No Gender identity: Female Cognitive needs: No Hearing needs: No Vision needs: No Female Reproductive History Menstrual Age of Menarche: 10 Duration of menses: 3-5 days Date of last menstrual period: 03/07/24 control method: none Total pregnancies: 3 Full term: 3 Number of Living Children: 3 Date of last pap smear: 11/01/20 (nregative) History of abnormal pap smear: Yes (unsure date) Physical Exam Vital Signs: Last Vital Signs BP 110/68 03/16/24 10:41 BMI result Body Mass Index 34.8 Const General: healthy appearing, comfortable, no acute distress, well developed and alert Nutritional Appearance: average body habitus Orientation/consciousness: patient oriented x3 Limitations: no limitations HEENT Head: Yes normocephalic Neck Neck: Yes normal visual inspection Chest Chest palpation & inspection: normal inspection of the chest Breast/axilla inspection: normal inspection of the breasts and normal inspection of the axillae Breast/axilla palpation: normal palpation of the breasts and normal palpation of the axillae Resp Effort & Inspection: normal respiratory effort GI Inspection: Yes normal to inspection, No Abdominal wall edema and No distended Palpation (GI): Soft to palpation and nontender General: Yes bladder normal to palpation External Female Exam: normal external appearance and normal appearance of the urethra Speculum Exam - Vagina: normal appearance of the vagina, normal palpation and normal vaginal discharge Speculum Exam - Cervix: normal appearance of the cervix, normal palpation and nontender Bimanual exam- vagina & uterus: normal bimanual exam, normal palpation, uterine size normal, bladder normal to palpation, consistency normal, normal palpation, uterine mobility normal, uterine shape normal, No Cervical tenderness present, non-tender and no cervical motion tenderness Bimanual Exam- Adnexa, other: normal adnexae, no masses, normal and No adnexal tenderness Back/Spine/Pelvis Other: External exam within normal limits vagina is pink and moist cervix multiparous pink smooth moist, normal-appearing mucus. Cervix mobile nontender uterus anteverted mobile nontender adnexa nontender good tone with Kegel. Cervix was friable with Pap. Neuro General: patient oriented x3 Results Reviewed Results Reviewed: The patient did not remember that she had gotten labs recently I did review some of her recent lab work and reviewed some of those results with her today. She was normotensive today. Assessment & Plan Assessment & Plan (1) Carpal tunnel syndrome of left wrist: Comment: Patient is expecting surgery in May. Code(s): G56.02 - Carpal tunnel syndrome, left upper limb Category: Medical (2) Severe obesity (BMI 35.0-35.9 with comorbidity): Comment: Lifestyle modifications encouraged/see note she has lost 2 lb, 03/16/24. Code(s): E66.01 - Morbid (severe) obesity due to excess calories; Z68.35 - Body mass index [BMI] 35.0-35.9, adult Category: Medical (3) History of section: Comment: x3 Code(s): Z98.891 - History of uterine scar from previous surgery Category: Surgical (4) Premenopausal patient: Comment: Some changes to the quality of her menses that might be weight related.... Code(s): N95.9 - Unspecified menopausal and perimenopausal disorder Category: Medical Plan -----Discussed in this visit the following: healthy balanced diet, regular and consistent exercise, getting recommended health screens, doing the best she can for her particular health concerns, kegel exercises, pap smear screening and followup recommendations, mammography screening and SBE, normal changes in cycles in her life stage--- . I reviewed with her the importance of following up with primary care as regards to her primary healthcare issues that are more important then almost anything else and contribute to her health discussed the challenges of weight gain over time especially when the culture of our work places to snack on gummy foods and how it can be a way we show affection each other but it does not serve us in the end. Discussed strategies for trying to achieve healthier habits at work and eat less. Discussed strategies for adding in exercise. I checked in the computer and there were no pending fasting labs and her last fasting glucose was within limits this was addressed from the point of view of her weight gain over time and whether not pre diabetes was a factor. I did urge her to make another appointment primary care so that she follows up on her blood pressure and she says she is taking it home in it is good. She is planning on her surgery for her carpal tunnel syndrome in May. She wishes to get a prescription for year she experiences burning under her breasts in the bra line . There is no rash there currently. I sent a prescription for miconazole powder that she can use p.r.n. she is keeping the skin very good condition. discussed that will probably get better with weight loss as well. Also discussed changes to a menses that often can be attributed to weight gain. Also discussed severo menopausal changes that can occur if she ever did miss 3 months in a row or have extreme problems with her menses that would need evaluation and consideration to treatment. Orders: Orders Bacterial Vaginosis Panel Today N89.8 - Other specified noninflammatory disorders of vagina CT NG by PCR Today N89.8 - Other specified noninflammatory disorders of vagina PAP + HPV E6/E7 rfx 18/45 Today Z01.419 - Encounter for gynecological examination (general) (routine) without abnormal findings Medications: New miconazole nitrate 2% 1 appl topical BID 85 grams 3RF Coding Level of Care Code Est Pt Prev Care 18-39y(76294) Diagnoses Carpal tunnel syndrome of left wrist G56.02 Severe obesity (BMI 35.0-35.9 with comorbidity) E66.01; Z68.35 History of section Z98.891 Premenopausal patient N95.9
[2024-03-16 10:41] VITALS: BP 110/68; BMI 34.8
== END 2024-03-16 11:15 | disposition home or self-care (01) ==
LOC: HO.HWSM 10:22
PROVIDERS: Visit Provider Advanced Practice Midwife
DX: Z01.419 Encounter for gynecological examination (general) (routine) without abnormal findings (principal); E66.01 Morbid (severe) obesity due to excess calories; Z68.35 Body mass index [BMI] 35.0-35.9, adult
CPT/HCPCS: 99395

== ENCOUNTER 2024-03-16 10:22 | Outpatient (REF) | payer OTHER, SELFPAY ==
[2024-03-17 06:09] LABS: CT PCR NOT DETECTED (Not Detect.); NG PCR NOT DETECTED (Not Detect.)
[2024-03-17 10:40] LABS: Bacterial Vaginosis PCR NEGATIVE (Negative); Candida Group PCR NOT DETECTED (Not Detect); Candida glab krusei PCR NOT DETECTED (Not Detect); Trichomonas vaginalis PCR NOT DETECTED (Not Detect)
[2024-03-18 13:38] LABS: HPV mRNA E6/E7 Not Detected (Not Detected)
== END 2024-03-16 10:23 | disposition home or self-care (01) ==
LOC: HO.LAB 10:22
PROVIDERS: Visit Provider Advanced Practice Midwife
DX: N89.8 Other specified noninflammatory disorders of vagina (principal); Z01.419 Encounter for gynecological examination (general) (routine) without abnormal findings; G56.02 Carpal tunnel syndrome, left upper limb; E66.01 Morbid (severe) obesity due to excess calories; Z68.35 Body mass index [BMI] 35.0-35.9, adult; N95.9 Unspecified menopausal and perimenopausal disorder
CPT/HCPCS: 0352U; 36415; 87491; 87591; 87624; 88175; 99395

== ENCOUNTER 2024-03-29 11:24 | Outpatient (AMB) | payer OTHER, SELFPAY ==
--- NOTE | 2024-03-29 11:25 | A.OFFVIS_ITS ---
Vital Signs 03/29/24 11:38 Height 4 ft 9 in Weight 161 lb BMI 34.8 BP 110/68 Intake Visit Reasons: Left breast lump Information Interpreted: clinical only Service Attendant Cafeteria: Service Attendant Cafeteria Present Allergies aspirin [ASPIRIN] Allergy (Mild, Verified 03/29/24 11:39) BRUISES, rash penicillin G Allergy (Mild, Verified 03/29/24 11:39) Hives Is last menstrual period known: Yes (03/07/24) HPI HPI Left breast lump: Details: Patient is here because she wants to get a lump that she found under her left breast checked. She says it looks black and blue to her she was here for an annual exam 2 weeks ago and requested a cream to put underneath her breasts because she frequently gets yeast infections underneath them because they are pendulous. She is planning carpal tunnel surgery fall. [facility] Medical History Carpal tunnel syndrome on both sides Kidney stone History of irregular menstrual cycles Hx of abnormal cervical Pap smear Left breast lump Surgical History History of foot surgery History of section History of tubal ligation Family History Father Lupus Arthritis Mother Hypertension Sister Ovarian cancer Sister Hypoglycemia Paternal Grandfather Lung cancer Social History Household Members: Spouse and Children Household Members Other:: 3 kids Housing: Apartment Alcohol intake: current Alcohol intake frequency: holidays/special occasions only Alcohol type: wine Patient Tobacco Use Status: Never used Tobacco e-Cigarette/Vaping Use: Never Used Second Hand Smoke Exposure: No service: No Current occupational status: employed 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, 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 Current occupational exposures/hazards: No Gender identity: Female Cognitive needs: No Hearing needs: No Vision needs: No Female Reproductive History Menstrual Age of Menarche: 10 Duration of menses: 3-5 days control method: permanent sterilization Total pregnancies: 3 Full term: 3 Date of last pap smear: 11/01/20 (negative) Physical Exam Vital Signs: Last Vital Signs BP 110/68 03/29/24 11:38 BMI result Body Mass Index 34.8 Chest Other: There is evidence of an ongoing yeast inflammation under the right breast but less so under the left where she feels the tiny bump in question that appears to be left over from a previous folliculitis that has healed. Chest palpation & inspection: normal inspection of the chest and normal palpation of entire chest wall Breast/axilla inspection: normal inspection of the breasts, normal inspection of the axillae and Other (Evidence of a previous folliculitis under left breast with slight skin disc) Breast/axilla palpation: normal palpation of the breasts, normal palpation of the axillae and other (The healed folliculitis is minimally palpable) Assessment & Plan Assessment & Plan (1) Folliculitis: Comment: Evidence of a healed one under left breast. Code(s): L73.9 - Follicular disorder, unspecified Category: Medical Plan Suggest observation and that as she meets with more success with losing weight she will be less prone to these kinds of skin eruptions she says she does not have any anywhere else the area under the right breast is inflamed w tinea and or yeast, and I prescribed a powder for that at the last visit. Suggest she also follow-up with her PCC as necessary but there is no breast mass at this time to be concerned about though it is good to be watchful and any changes can be evaluated. Coding Level of Care Code Est Pt Level 3 (56300) Diagnoses Folliculitis L73.9
[2024-03-29 11:38] VITALS: BP 110/68; BMI 34.8
== END 2024-03-29 12:06 | disposition home or self-care (01) ==
LOC: HO.HWSM 11:24
PROVIDERS: Visit Provider Advanced Practice Midwife
DX: L73.9 Follicular disorder, unspecified (principal)
CPT/HCPCS: 99213

== ENCOUNTER → 2024-03-29 11:24 | Outpatient (BNVA) | payer OTHER, SELFPAY | PROVIDERS: Visit Provider Advanced Practice Midwife | DX: L73.9 Follicular disorder, unspecified (principal) | CPT/HCPCS: 99212 ==

== ENCOUNTER 2024-05-04 08:00 | Outpatient (RCR) | payer OTHER, SELFPAY ==
--- NOTE | 2024-03-25 10:26 | MHC.OT.EP ---
[address] [phone] Occupational Therapy Plan of Care Patient Name: Kath Woods Date of Evaluation: 03/25/24 Diagnosis: Left Wrist Tenosynovitis Pain Location: Pain free at rest 10/10 pain with heavy use Tenderness in left volar forearm Pain Score: 10 Pain Scale Used: Numeric (0 - 10) Aggravating Factors: Heavy use, sleep, worse w/ cold Alleviating Factors: Gabapentin previously, now on Lyrica, heat Assessment: 33 yo female presents w/ pain in left wrist, persistent for the past year, with edema and numbness more recently. She was seen in [facility] and surgery is scheduled for left CTR May 12, and referred to OT for conservative management of FCU tendinitis. Pt was given carpal tunnel orthosis but has not been wearing due to discomfort on the forearm. On assessment, she has (+) Tinels and Phalens test, also with tenderness to palpate over volar forearm and pain with wrist extension and resisted flexion, consistent w/ FCU tendinopathy. We will continue course of OT for conservative management of CTS and FCU teninopathy w/ goal of increasing strength and functional use w/ decreased pain. 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: Left gross grasp >20lb Progress to resistance strengthening exercises Pt to report ease w/ nighttime symptoms Pt to report pain <2/10 w/ moderate daily activities (home care, cooking, etc) Treatment Plan: Therapeutic Exercise Therapeutic Activity Home Exercise Program Splinting Neuro Re-ed Patient Education Desensitization/Sensory Re-ed Edema Control ADL Training Ultrasound Iontophoresis Paraffin Fluidotherapy MHP Cold Packs Joint Mobilization Soft Tissue Mobilization Kinesiotaping Nighttime splinting Consider ionto w/ dex Electronically Signed By: Barbi Brown OTR/L CHT Please Sign and return to therapist. Thank you once again for your referral.
--- NOTE | 2024-05-18 08:28 | MHC.OT.DC ---
[address] [phone] F: [phone] Occupational Therapy Discharge Note Patient Name: Kath Woods Provider: Hipolito Funez PA-C Diagnosis: Left Wrist Tenosynovitis Date of Evaluation: 03/25/24 Date of Discharge: 05/18/24 Treatments to Date: 8 Cancellations to Date: No Shows to Date: 5 Discharge Status: Discharge Summary: Kath was referred to OT w/ left wrist tenosynovitis. She has progressed through course of OT and has been doing well, pain free at rest and reporting less pain with work and home tasks. She continued to have weak acid regenerator, but has since undergone left CTR 05/12/24 w/ Dr Dey. No further OT indicated for tendinitis. Electronically Signed By: ANTHONY Rosenberg/Hector FONSECAT Reviewed/agree with student documentation: Therapist: Please Sign and return to therapist, thank you for your referral.
== END 2024-05-18 08:29 | disposition home or self-care (01) ==
LOC: HO.OT 08:00
DX: M65.932 Unspecified synovitis and tenosynovitis, left forearm (principal)
CPT/HCPCS: 29125; 97110; 97140; 97165; 97760

== ENCOUNTER 2024-05-12 07:55 | Day surgery (SDC) | payer OTHER, SELFPAY ==
[2024-05-12 08:16] VITALS: BMI 35.1
[2024-05-12 08:17] VITALS: BP 116/55; PULSE 89; RESP 18; TEMP 36.6; O2SAT 97
--- NOTE | 2024-05-12 09:16 | MHC.SHP ---
Pre-Procedural Eval Section A - 24 Hr Update-Section A only Date of Service: 05/12/24 The patient is an INPATIENT: No Changes since office visit: No Cold of Flu in the past 2 weeks, No New Medical Problems, No Changes in Medication and No Patient answered all questions The patient has been examined within 24 hours of the surgical procedure. The History & Physical has been completed within 30 days and I have reviewed it.: Yes Section B - Complete if H&P > 30 days Chief Complaint: Carpal tunnel syndrome, left upper limb Allergies: Allergies Allergy/AdvReac Type Severity Reaction Status Date / Time aspirin [ASPIRIN] Allergy Mild BRUISES, Verified 05/12/24 08:20 rash penicillin G Allergy Mild Hives Verified 05/12/24 08:20 Plan Diagnosis/Plan: Unchanged I have reviewed the history and physical and performed a pertinent physical examination on my patient. No changes have occurred unless specified. Time Spent With Patient Time: Total time managing care of this patient today ____ minutes.
--- NOTE | 2024-05-12 09:17 | P.OP_ITS ---
Operative Note Operative Note Date of Service: 05/12/24 Narrative: Preop diagnosis: 1. Left Carpal tunnel syndrome Postop diagnosis: same Procedure: 1. Left Carpal tunnel release Surgeon: Jackie Dey MD Nutrition Club Ambassador: Hipolito BILLS Anesthesia: local block using 1% lidocaine with epinephrine Findings: Thickened transverse carpal ligament. EBL: Less than 5 mL Specimens: None Complications: None Disposition: Brought to recovery room in stable condition Plan: Follow-up for 10-14 days for wound check and suture removal Indications: The patient is 33 years old, with left carpal tunnel syndrome that has been unresponsive to nonoperative management. The risks and benefits of operative treatment including but not limited to risk of damage to blood vessels, nerves, tendons, infection, persistent pain, persistent symptoms, or possible need for additional surgery were discussed with the patient and the patient wishes to proceed with surgery. Procedure: Once consent was obtained a local block was performed using a combination of 1% lidocaine with epinephrine. The patient was then brought back to the operating suite and placed on the operative table in supine position. The left upper extremity was prepped and draped in a standard surgical fashion. Once assured that we had a good block, a 2.0 cm longitudinal incision was made centered over the carpal tunnel. The incision was made through the skin to the subcutaneous tissues using a #15 blade. Dissection was made down to the level of the transverse carpal ligament with care being taken to protect the palmar cutaneous nerve. Once the transverse carpal ligament was clearly visualized, a longitudinal incision was made in the transverse carpal ligament 1st using a #15 blade, then using tenotomy scissors under direct visualization. Care was taken to look for and protect the motor branch of the median nerve when seen in this area. Once satisfied with our carpal tunnel release the wound was copiously irrigated with normal saline and hemostasis was obtained with a brief period of local pressure. The skin edges were reapproximated with some 5.0 nylon suture material and a sterile dressing was applied. The patient appears to have tolerated the procedure well and with no complications. All digits were well vascularized at the conclusion of the case.
[2024-05-12 09:55] VITALS: BP 117/58; PULSE 88; RESP 16; O2SAT 98
== END 2024-05-12 10:04 | disposition home or self-care (01) ==
PROVIDERS: Visit Provider Orthopaedic Surgery
PROC: (CPT 64721; principal; 2024-05-12 10:50)
DX: G56.02 Carpal tunnel syndrome, left upper limb (principal); R20.0 Anesthesia of skin; R20.2 Paresthesia of skin; M25.532 Pain in left wrist; M65.90 Unspecified synovitis and tenosynovitis, unspecified site; Z88.0 Allergy status to penicillin; Z88.6 Allergy status to analgesic agent; Z98.890 Other specified postprocedural states
CPT/HCPCS: 64721; J0171; J2003

== ENCOUNTER → 2024-05-12 07:55 | Outpatient (BNV) | payer OTHER, SELFPAY | PROVIDERS: Visit Provider Orthopaedic Surgery | DX: G56.02 Carpal tunnel syndrome, left upper limb (principal) | CPT/HCPCS: 64721 ==

== ENCOUNTER 2024-05-25 12:52 | Outpatient (AMB) | payer OTHER, SELFPAY ==
--- NOTE | 2024-05-25 12:54 | A.OFFVIS_ITS ---
Intake Visit Reasons: PO LT CTR 05/12/24 AR Intake Note: Kath is a 33 year old 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 female who presents today post operatively s/p left carpal tunnel release DOS: 05/12/24 AR. Patient denies numbness and tingling in her left hand. Pt states she does have an occasionally electric shock feeling. Trial Lawyer Required: Yes Trial Lawyer Language: Lodging House Keeper Services: Trial Lawyer Present Trial Lawyer Name: Kinga([id number]) Allergies aspirin [ASPIRIN] Allergy (Mild, Verified 05/25/24 12:54) BRUISES, rash penicillin G Allergy (Mild, Verified 05/25/24 12:54) Hives HPI HPI PO LT CTR 05/12/24 AR: Details: Patient is a 34-year-old female who presents for postoperative evaluation status post left carpal tunnel release, DOS 05/12/[address] Dey. Today, the patient reports that she is feeling well, and then her numbness and tingling have completely resolved. However, the patient reports that she is experiencing some mild discomfort in both the radial and ulnar sides of the volar wrist, just adjacent to the incision site. Patient reports no redness, swelling, or drainage from the incision site. No other acute complaints or concerns at this time. [facility] Medical History Carpal tunnel syndrome on both sides Kidney stone History of irregular menstrual cycles Hx of abnormal cervical Pap smear Left breast lump Surgical History History of foot surgery History of section History of tubal ligation Family History Father Lupus Arthritis Mother Hypertension Sister Ovarian cancer Sister Hypoglycemia Paternal Grandfather Lung cancer Social History Household Members: Spouse and Children Household Members Other:: 3 kids Housing: Apartment Are you a primary career transition specialist to a significant other at home: No Do you presently have visiting nurse or other home services: No Alcohol intake: current Alcohol intake frequency: holidays/special occasions only Alcohol type: wine Patient Tobacco Use Status: Never used Tobacco e-Cigarette/Vaping Use: Never Used Second Hand Smoke Exposure: No service: No Current occupational status: employed 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 Good APB muscle firing and good finger cross. Vascular: Capillary refill brisk. ROM: Patient can make a fist and extend all their digits. Skin: Well approximated and well healing incision site noted on the volar aspect of the left wrist General: No ecchymosis. No erythema or evidence of infection. Patient reports mild tenderness to palpation of the radial and ulnar sides of the incision site Assessment & Plan Assessment & Plan (1) Carpal tunnel syndrome of left wrist: Comment: Patient is expecting surgery in May. Code(s): G56.02 - Carpal tunnel syndrome, left upper limb Category: Medical Plan 1. Left carpal tunnel syndrome status post carpal tunnel release DOS 05/12/2024 Patient appears to be recovering well postoperatively Patient is educated about the typical recovery course Patient is educated that the discomfort she is experiencing in her wrist is likely pillar pain secondary to her operation, and that 1 of the mainstays of treatment for this is occupational therapy Patient was referred to OT for range of motion and strengthening of the left hand and wrist in the setting of pillar pain status post carpal tunnel release Patient was amenable to this plan Patient will follow-up as needed with any acute concerns Orders: Orders OT Evaluation and Treatment Today G56.02 - Carpal tunnel syndrome, left upper limb Coding Level of Care Code Global (72143) Diagnoses Carpal tunnel syndrome of left wrist G56.02
== END 2024-05-25 13:19 | disposition home or self-care (01) ==
DX: G56.02 Carpal tunnel syndrome, left upper limb (principal)
CPT/HCPCS: 99024

== ENCOUNTER → 2024-05-25 12:52 | Outpatient (BNVA) | payer OTHER, SELFPAY | DX: G56.02 Carpal tunnel syndrome, left upper limb (principal) | CPT/HCPCS: 99212 ==

== ENCOUNTER 2024-06-24 00:43 | Emergency (ER) | payer OTHER, SELFPAY ==
--- NOTE | ~2024-06-24 | CT_ITS ---
EXAMINATION: CT HEAD WITHOUT CONTRAST CLINICAL INFORMATION: Headache. COMPARISON: None available. TECHNIQUE: Contiguous axial imaging was performed from the skull base to vertex without intravenous administration of contrast. This CT examination was performed using dose optimization techniques as appropriate, variously including the following: *Automated exposure control *Adjustment of mA and/or kV according to patient size (this includes techniques or standardized protocols for targeted exams where dose is matched to indication/reason for exam; i.e. extremities or head) *Use of iterative reconstruction technique DLP: 653 mGy-cm FINDINGS: Asymmetric subcortical hypodensity is noted within the left cerebral hemisphere findings are without associated lobar herniation or definitive hemispheric sulcal effacement. Findings include absence of the expected grade-rule out white cortical differentiation of the left insular lobe. No intracranial hemorrhage or tumor is noted. The ventricles are normal in size and configuration. Normal appearance of the orbits and globes. No extra cranial soft tissue inflammatory changes. 1 cm lobulated density which may represent a mucosal retention cyst incidentally noted in the right maxillary sinus. Mild hyperostosis frontalis interna. CT/CT head/brain wo IV con IMPRESSION: *Findings suspicious for left supratentorial hemispheric edema. Findings may correlate with left hemiplegic migraine. Findings could represent early cytotoxic edema in the setting of ischemia which would correlate with extensive left hemispheric ischemia. No intracranial hemorrhage. This result was discussed with Alie Szymanski MD MD by telephone at 06/24/2024 5:10 AM EST. Per report, no focal neurologic symptoms are present and headache symptoms are resolving. Consequently, findings are most suspicious for mild left hemispheric edema possibly related to a hemiplegic migraine. Electronically signed by: Jonatan Tai MD 06/24/2024 05:11 AM EST RP
[2024-06-24 00:47] VITALS: BP 147/97; PULSE 107; RESP 16; TEMP 37.1; O2SAT 98; BMI 36.8
--- NOTE | 2024-06-24 01:57 | ED_ITS ---
HPI - General Adult General Chief complaint: General Medical Stated complaint: migraine? Time Seen by Provider: 06/24/24 01:30 Source: patient and bottle carrier Mode of arrival: ambulatory Limitations: no limitations History of Present Illness ED Provider: DR. Szymanski HPI narrative: this is a 34-year-old female history of migraine, HTN, patient out of her blood pressure medication, no PCP at the current time. Patient came in for evaluation of migraine On the left side., dizziness, the whole entire body feel weird, no nausea, no vomiting, no blurry vision, no weakness, no numbness, patient during the interview reported improvement of her symptoms. Related Data Previous Rx's ?Medication ?Instructions ?Recorded blood pressure test kit-large #1 ea 10/09/22 atenolol 25 mg tablet 25 mg PO DAILY #90 tabs 09/29/23 cetirizine 10 mg tablet (Zyrtec) 10 mg PO DAILY #90 tabs 09/29/23 pregabalin 75 mg capsule (Lyrica) 75 mg PO BID #60 caps 03/01/24 mirtazapine 7.5 mg tablet 7.5 mg PO BEDTIME #30 tabs 03/02/24 miconazole nitrate 2 % topical 1 appl topical BID #85 grams 03/16/24 powder naproxen 500 mg tablet 500 mg PO BID PRN for pain #60 tabs 04/08/24 omeprazole 40 mg capsule,delayed 40 mg PO QAM #30 caps 05/10/24 release atenolol 25 mg tablet 25 mg PO DAILY #30 tabs 06/24/24 Allergies Allergy/AdvReac Type Severity Reaction Status Date / Time aspirin [ASPIRIN] Allergy Mild BRUISES, Verified 06/24/24 00:50 rash penicillin G Allergy Mild Hives Verified 06/24/24 00:50 Review of Systems 2 Review of Systems: all other systems are reviewed and are negative Constitutional: Reports as per HPI and Reports no additional constitutional complaints Eyes: Reports as per HPI and Reports no additional eye complaints Reports system reviewed and no additional complaints, except as documented Cardiovascular: Reports as per HPI and Reports no additional cardiovascular complaints Respiratory: Reports as per HPI and Reports no additional respiratory complaints Gastrointestinal: Reports as per HPI and Reports no additional gastrointestinal complaints Genitourinary: Reports no additional female genitourinary complaints Musculoskeletal: Reports no additional musculoskeletal complaints Skin/Breast: Reports system reviewed and no additional complaints, except as docu Psychiatric: Reports no additional psychiatric complaints Endocrine: Reports no additional endocrine complaints Hematologic/Lymphatic: Reports no additional hematologic/lymphatic complaints Allergic/Immunologic: Reports no additional allergic/immunologic complaints Reports system reviewed and no additional complaints, except as documented and Reports Abnormal speech present [facility] Past Medical History Medical History Carpal tunnel syndrome on both sides Kidney stone History of irregular menstrual cycles Hx of abnormal cervical Pap smear Left breast lump Surgical History History of foot surgery History of section History of tubal ligation Family History Family History Father Lupus Arthritis Mother Hypertension Sister Ovarian cancer Sister Hypoglycemia Paternal Grandfather Lung cancer Social History Social History Household Members: Spouse and Children Household Members Other:: 3 kids Housing: Apartment Are you a primary career consultant to a significant other at home: No Do you presently have visiting nurse or other home services: No Alcohol intake: current Alcohol intake frequency: does not drink Alcohol type: wine Patient Tobacco Use Status: Never used Tobacco Smoked in Last 30 Days: No e-Cigarette/Vaping Use: Never Used Second Hand Smoke Exposure: No Use of substances other than those prescribed or required for medical reasons: No Advance Directives: No Advance Directives Information Provided: No Do you have a plan to hurt others: No Plan Patient : No service: No Current occupational status: employed 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 Blood pressure elevated. Heart rate normal. Respiratory rate normal. Temperature normal. Oxygen saturation normal. Appearance: Alert. Oriented X3. No acute distress. Head: Normal external exam. Normocephalic. Atraumatic. No Lucero signs noted. No raccoon eyes noted Eyes: PERRLA. EOMI. Conjunctiva and sclera normal. Eyelids normal. ENT: TM's Normal. Pharynx normal. Uvula midline. Moist mucous membranes. No trismus noted. No drooling noted. No muffled voice noted. Neck: Normal inspection. Neck supple. FROM. No adenopathy. Thyroid Normal. No meningeal signs. No neck mass noted. CVS: Normal heart rate and rhythm. Heart sound normal. No murmurs noted. Pulses normal throughout. Respiratory: No respiratory distress. Painless inspiration. Breath sounds normal. No wheezes/rales/rhonchi noted. Chest nontender. No accessory muscle usage noted or decreased air movement noted. Abdomen: Soft and nontender. Bowel sounds normal in all 4 quadrants. No distention noted. No organomegaly noted. No visible injury noted. Back: No CVA tenderness. Full range of motion noted. Skin: Skin warm and dry. Normal skin color. Normal skin turgor. No rashes/lesions/lacerations noted. Extremities: No lower extremity edema. Extremities exhibit normal range of motion. Extremities nontender. neuro exam: Mental status: Normal attention, orientation, memory, and affect. Cranial nerves: Pupils are equal, round and reactive to light, EOMI, visual gleason are fall, face is symmetric, facial sensations are normal. Motor examination normal muscle tone, strength to 4 extremities. DTR are +2, planter's are flexor. Sensory exam; normal coordination, no ataxia, gait stable. Cerebellar exam: [id number] and [id number]-[id number] is normal. Extrapyramidal system: No tremors, no rigidity with normal facial expressions. Pronator drift not present NIH Stroke Scale Time: 05:09 Level of Consciousness: Alert Level of Consciousness Questions: Answers both questions correctly Level of Consciousness Commands: Performs both tasks correctly Best Gaze: Normal Visual: No visual loss Facial Palsy: Normal Motor Arm (Right): No drift Motor Arm (Left): No drift Motor Leg (Right): No drift Motor Leg (Left): No drift Limb Ataxia: Absent Sensory: Normal Best Language: No aphasia Dysarthia: Normal Extinction and Inattention: No abnormality Score: 0 Course Reevaluation(s) Reevaluation #1: Feels better, normally take atenolol 25 mg daily for blood pressure management patient had issue with her insurance and lost her PCP will see him next month has not had her blood pressure medication for the past few months. 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 Time: 05:30 Medications Administered Discontinued Medications Generic Name Dose Route Start Last Admin Trade Name Ming PRN Reason Stop Dose Admin Atenolol 25 mg 06/24/24 02:06 06/24/24 02:14 Atenolol 25 Mg Tablet PO 06/24/24 02:07 25 mg ONCE ONE Administration Protocol Diphenhydramine HCl 25 mg 06/24/24 01:55 06/24/24 02:09 Diphenhydramine Hcl 50 Mg/Ml Vial IVPUSH 06/24/24 01:56 25 mg ONCE ONE Administration Sodium Chloride 1,000 mls @ 999 mls/hr 06/24/24 01:55 06/24/24 03:13 Ns IV 06/24/24 02:55 Infused .Q1H1M ONE Infusion Medical Decision Making Differential Diagnosis Differential Diagnoses: The differential diagnosis associated with the presentation includes ( Intracranial bleed, headache, migraine, hypertensive urgency, electrolyte derangement) Admission/Observation Consideration of admission/observation: Escalation of care including admission/observation considered Lab Data MDM Lab Attestation statement: I reviewed the patient's lab results. 06/24/24 02:18 06/24/24 02:18 Labs: Lab Results 06/24/24 Range/Units 02:18 WBC 11.0 H (4.8-10.8) X10*3/uL RBC 4.26 (4.20-5.50) X10*6/uL Hgb 12.7 (12.0-16.0) g/dl Hct 35.3 L (37.0-47.0) % MCV 82.9 (80.0-98.0) fL MCH 29.8 (27.0-33.0) pg MCHC 36.0 H (31.0-35.0) g/dl RDW 13.2 (11.0-16.0) % Plt Count 254 (160-400) X10*3/uL MPV 9.6 (9.4-12.3) fL Immature Gran % (Auto) 0.4 (0.0-0.4) % Neut % (Auto) 59.7 (45-73) % Lymph % (Auto) 29.8 (20-40) % [place] % (Auto) 7.0 (2-11) % Eos % (Auto) 2.7 (0-4) % Baso % (Auto) 0.4 (0-2) % Lymph # (Auto) 3.3 (1.2-4.9) X10*3/uL [place] # (Auto) 0.8 (0.1-1.2) X10*3/uL Eos # (Auto) 0.3 (0.0-0.4) X10*3/uL Baso # (Auto) 0.0 (0.0-0.2) X10*3/uL Abs Immat Gran (auto) 0.04 H (0.00-0.03) X10*3/uL Absolute Neuts (auto) 6.6 (2.0-8.3) x10*3/uL Absolute Nucleated RBC 0.000 (0.0-0.012) X10*3/uL Nucleated RBC % (auto) 0.0 (0.0-0.2) /100WBC Sodium 140 (135-145) mmol/L Potassium 3.8 (3.3-5.1) mmol/L Chloride 106 (96-108) mmol/L Carbon Dioxide 24 (22-29) mmol/L Anion Gap 14 (12-20) BUN 10 (9-16) mg/dL Creatinine 0.74 (0.5-1.4) mg/dL Estim Creat Clear Calc 90.4 Estimated GFR > 60 Random Glucose 107 (60-115) mg/dL Calcium 9.1 (8.4-10.2) mg/dL Independent Interpretation I performed an independent interpretation of an: CT Scan ( Head:*Findings suspicious for left supratentorial hemispheric edema. Findings may correlate with left hemiplegic migraine. Findings could represent early cytotoxic edema in the setting of ischemia which would correlate with extensive left hemispheric ischemia. No intracranial hemorrhage. This ) Radiology Impression Discussion of test interpretation with radiology: I have reviewed the radiologist's reading. Discharge Plan Discharge Clinical Impression: Headache, Essential hypertension Patient Disposition: Still a Patient Instructions: Hypertension (ED) Prescriptions: New atenolol 25 mg tablet 25 mg PO DAILY Qty: 30 0RF No Action mirtazapine 7.5 mg tablet 7.5 mg PO BEDTIME Qty: 30 0RF naproxen 500 mg tablet 500 mg PO BID PRN (Reason: for pain) Qty: 60 0RF omeprazole 40 mg capsule,delayed release(DR/EC) 40 mg PO QAM Qty: 30 0RF pregabalin [Lyrica] 75 mg capsule 75 mg PO BID Qty: 60 3RF (DME) blood pressure test kit-large Kit See Rx Instructions .ROUTE .MEDSUPPLY Qty: 1 0RF Rx Instructions: As directed atenolol 25 mg tablet 25 mg PO DAILY Qty: 90 0RF cetirizine [Zyrtec] 10 mg tablet 10 mg PO DAILY Qty: 90 2RF miconazole nitrate 2 % powder 1 appl topical BID Qty: 85 3RF Print Language: Ethiopian
[2024-06-24] MEDS: diphenhydrAMINE HCL 50 MG/ML VIAL 25 MG IVPUSH (02:09)
[2024-06-24] MEDS: 0.9 % Sodium Chloride 1,000 ML 999 ML IV (02:09)
[2024-06-24] MEDS: atenoloL 25 MG TABLET PO (02:14)
[2024-06-24 02:22] LABS: MANUAL DIFF FLAG NO
[2024-06-24 02:24] LABS: Basophils Percent Auto 0.4 % (0-2); Eosinophils Absolute Auto 0.3 X10*3/uL (0.0-0.4); Eosinophils Percent Auto 2.7 % (0-4); Hematocrit 35.3 % (37.0-47.0); Hemoglobin 12.7 g/dl (12.0-16.0); Imm Gran Abs Auto 0.04 X10*3/uL (0.00-0.03); Imm Gran Pct Auto 0.4 % (0.0-0.4); Lymphocytes Absolute Auto 3.3 X10*3/uL (1.2-4.9); Lymphocytes Percent Auto 29.8 % (20-40); Mean Corpuscular Hemoglobin 29.8 pg (27.0-33.0); Mean Corpuscular Volume 82.9 fL (80.0-98.0); Mean Platelet Volume 9.6 fL (9.4-12.3); Monocytes Absolute Auto 0.8 X10*3/uL (0.1-1.2); Neutrophils Absolute Auto 6.6 x10*3/uL (2.0-8.3); Neutrophils Percent Auto 59.7 % (45-73); Platelet Count 254 X10*3/uL (160-400); Red Blood Count 4.26 X10*6/uL (4.20-5.50); Red Cell Distribution Width 13.2 % (11.0-16.0)
[2024-06-24 02:40] LABS: Anion Gap 14 (12-20); Blood Urea Nitrogen 10 mg/dL (9-16); Calcium 9.1 mg/dL (8.4-10.2); Carbon Dioxide 24 mmol/L (22-29); Chloride 106 mmol/L (96-108); Creatinine Clr Calc Pharmacy 90.4; Estimated Glomerular Filt Rate > 60; Glucose Random 107 mg/dL (60-115); Potassium 3.8 mmol/L (3.3-5.1); Sodium 140 mmol/L (135-145)
[2024-06-24 02:56] VITALS: BP 128/82; PULSE 83; RESP 16; TEMP 36.7; O2SAT 99
--- NOTE | 2024-06-24 02:56 | PC.NURSE ---
Pt reports positive relief from previously administered meds. VSS. Awaiting MD reeval.
--- NOTE | 2024-06-24 03:58 | PC.NURSE ---
Pt resting on stretcher, NAD, awaiting CT results, aware of plan of care.
[2024-06-24 05:53] VITALS: BP 113/72; PULSE 76; RESP 16; TEMP 36.7; O2SAT 98
[2024-06-24 05:59] VITALS: BP 113/72; PULSE 76; RESP 16; TEMP 36.7; O2SAT 98
== END 2024-06-24 06:00 | disposition home or self-care (01) ==
PROVIDERS: Emergency Provider Emergency Medicine
DX: R51.9 Headache, unspecified (principal); I10 Essential (primary) hypertension; R29.700 NIHSS score 0
CPT/HCPCS: 36415; 70450; 80048; 85025; 96361; 96374; 99284; J1200

== ENCOUNTER 2024-06-27 09:54 | Outpatient (RCR) | payer OTHER, SELFPAY ==
--- NOTE | 2024-06-17 10:57 | MHC.OT.EP ---
[address] [phone] Occupational Therapy Plan of Care Patient Name: Kath Woods Date of Evaluation: 06/17/24 Diagnosis: Post-op CTR Pain Location: discomfort in left volar wrist, hypersensitive to touch/palpate Pain Score: 5 Pain Scale Used: Numeric (0 - 10) Aggravating Factors: General use and movement Alleviating Factors: Ibuprofen as needed (mostly daily) Assessment: 34 yo female w/ hx of left CTS, now post-op CTR 05/12/24 w/ Dr Dey. She is familiar to this therapist as she has treated for left wrist tendinitis March 2024. Today she presents w/ reported fatigue and decreased use of left hand. She has some edema but soft scar feel and overall good range in digits and wrist. She does have hypersensitivity to touch and has been educated on desensitization techniques. She will benefit from cont'd hand therapy to address needs, I anticipate she will do well. 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 Thank you once again for your referral.
--- NOTE | 2024-07-08 10:47 | MHC.OT.DC ---
[address] [phone] F: [phone] Occupational Therapy Discharge Note Patient Name: Kath Woods Provider: Hipolito Funez PA-C Diagnosis: Post-op CTR Date of Surgery: 05/12/24 Date of Evaluation: 06/17/24 Date of Discharge: 07/08/24 Treatments to Date: 2 Cancellations to Date: 3 No Shows to Date: 3 Discharge Status: Independent with HEP Visit Non-compliance Discharge Summary: Kath was referred to OT s/p CTR 05/12/25. She has been educated on management w/ massage and exercises, on last visit had mild edema and good ROM. She has only attended initial eval and one follow-up, while cancelling three visits and no-showing three visits. At this time we will discharge due to non-compliance policy, but I anticipate she will do well if continuing home program. Electronically Signed By: Barbi Brown, OTR/L CHT Please Sign and return to therapist, thank you for your referral.
== END 2024-07-08 10:48 | disposition home or self-care (01) ==
LOC: HO.OT 09:54
DX: G56.02 Carpal tunnel syndrome, left upper limb (principal)
CPT/HCPCS: 97110; 97140; 97165

== ENCOUNTER → 2024-07-26 10:39 | Outpatient (BNVA) | payer OTHER, SELFPAY | PROVIDERS: PCP Internal Medicine; Visit Provider Internal Medicine | DX: I10 Essential (primary) hypertension (principal); N93.9 Abnormal uterine and vaginal bleeding, unspecified; N92.6 Irregular menstruation, unspecified; R00.2 Palpitations; R53.83 Other fatigue; R68.89 Other general symptoms and signs; Z23 Encounter for immunization | CPT/HCPCS: 90471; 90656; 99212 ==

== ENCOUNTER 2024-07-26 10:53 | Outpatient (AMB) | payer OTHER, SELFPAY ==
[2024-07-26 11:21] VITALS: BP 110/80; PULSE 80; O2SAT 99; BMI 35.7
--- NOTE | 2024-07-26 11:21 | MHC.PC.OV ---
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: Pt is here today as a New Patient to est care/ HTN Allergies aspirin [ASPIRIN] Allergy (Mild, Verified 07/26/24 11:50) BRUISES, rash penicillin G Allergy (Mild, Verified 07/26/24 11:50) Hives Medication List - Last Reconciled 07/26/24 by Melly Holman MD atenolol 25 mg PO DAILY blood pressure test kit-large As directed cetirizine (Zyrtec) 10 mg PO DAILY mirtazapine 7.5 mg PO BEDTIME naproxen 500 mg PO BID PRN omeprazole 40 mg PO QAM pregabalin (Lyrica) 75 mg PO BID Tobacco use date assessed: 07/26/24 Dental Screening Dental Screen Date: 07/26/24 Did you have a dental visit in the last 12 months?: No Did you have a dental problem in the last 6 months where you did not have access to dental care?: No Was dental information given to patient?: Patient has dentist 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 Blood pressure is well-controlled with atenolol 25 mg daily, needs refills. Denies headache, chest pain, lightheadedness, shortness of breath. - Presenting with menstrual irregularity for the past three months, characterized by infrequent menstruation followed by persistent spotting for the remainder of the month. Prior menstrual cycles were normal. Has had similar symptoms in 2022 and a pelvic and transvaginal ultrasound done ordered by [facility] showed unremarkable findings [facility] Medical History (Updated 07/26/24 @ 12:12 by Melly Holman MD) Abnormal uterine bleeding Carpal tunnel syndrome on both sides Kidney stone History of irregular menstrual cycles Hx of abnormal cervical Pap smear Left breast lump Surgical History (Updated 07/26/24 @ 12:12 by Melly Holman MD) History of foot surgery History of section History of tubal ligation Family History (Updated 07/26/24 @ 12:05 by Melly Holman MD) Father Lupus Arthritis Mother Hypertension Sister Ovarian cancer SLE (systemic lupus erythematosus related syndrome) Sister Hypoglycemia Paternal Grandfather Lung cancer Social History Household Members: Spouse and Children Household Members Other:: 3 kids Housing: Apartment Are you a primary infant caregiver to a significant other at home: No Do you presently have visiting nurse or other home services: No Alcohol intake: current Alcohol intake frequency: does not drink Alcohol type: wine Patient Tobacco Use Status: Never used Tobacco e-Cigarette/Vaping Use: Never Used Second Hand Smoke Exposure: No service: No Current occupational status: employed 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, 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 Current occupational exposures/hazards: No Gender identity: Female Cognitive needs: No Hearing needs: No Vision needs: No Female Reproductive History Menstrual Age of Menarche: 10 Questionnaire Thrive Questionnaire Date Thrive assessed: 09/29/23 I am a: Patient What is your living situation today?: I have a place to live, but I am worried about losing it in the future Within the past 12 months, did the food you bought not last and you didn't have the money to get more?: Sometimes True Within the past 12 months, did you worry whether your food would run out before you got money to buy more?: Sometimes True Do you have trouble paying for medicines?: No Do you have trouble getting transportation to medical appointments?: No Do you have trouble paying your heating and electricity bill?: Yes Do you have trouble taking care of your child, family member or friend?: No Do you have trouble with day-to-day activities such as bathing, preparing meals, shopping, managing finances, etc.?: No Are you currently unemployed and looking for a job?: No Are you interested in more education?: No Currently or been in a relationship where the following occur: No concerns reported THRIVE Score: 4 AUDIT C Alcohol Use Questionnaire (AUDIT-C) 1. How often do you have a drink containing alcohol?: 2-4 times a month 2. How many drinks containing alcohol do you have on a typical day when you are drinking?: 1 or 2 3. How often do you have six or more drinks on one occasion?: Less than monthly Total Score: 3 DHAVAL-7 AMB Questionnaire DHAVAL-7 Date DHAVAL - 7 assessed: 09/29/23 Feeling nervous, anxious, or on edge: 2 = More than half the days Not being able to stop or control worryin = Nearly every day Worrying too much about different things: 3 = Nearly every day Trouble relaxin = More than half the days Being so restless that it is hard to sit still: 1 = Several days Becoming easily annoyed or irritable: 0 = Not at all Feeling afraid as if something awful might happen: 1 = Several days Total DHAVAL-7 score (0-4 normal; 5-9 mild; 10-14 moderate; 15-21 severe): 12 Source: Developed by Drs. Serafin Land, Marimar Eric, Catarino Valenzuela and colleagues, with an educational sailaja from [employer] Review of Systems Const Denies body aches, Denies fatigue, Denies fever(s), Denies headache(s) and Denies weakness Eyes Denies change in vision ENT Denies dizziness, Denies headache(s) and Denies nasal congestion Card Denies chest pain, Reports rapid heart rate (Occasional), Denies lightheadedness and Denies dyspnea Resp Denies chest congestion, Denies cough, Denies dyspnea and Denies wheezing GI Denies abdominal pain, Denies change in bowel habits and Denies heartburn Denies hematuria, Denies urinary frequency, Denies dysuria and Denies urinary urgency Skin/Breast Denies breast pain, Denies breast mass, Denies lesions and Denies rash Neuro Denies dizziness, Denies headache(s) and Denies weakness Psych Reports no additional complaints Endo Denies fatigue, Denies polydipsia and Denies polyuria Alejandro/Lymph Denies easy bruising Aller/Immun Denies seasonal rhinorrhea and Denies wheezing Physical exam (Primary Care) Vital Signs: Last Vital Signs Pulse 80 07/26/24 11:21 BP 110/80 07/26/24 11:21 Pulse Ox 99 07/26/24 11:21 Oxygen Delivery Method Room Air 07/26/24 11:21 BMI result Body Mass Index 35.7 Tobacco/Smoking Status: Tobacco use Status Tobacco use date assessed 07/26/24 07/26/24 11:25 Patient Tobacco Use Status Never used Tobacco 07/26/24 11:22 e-Cigarette/Vaping Use Never Used 07/26/24 11:22 Thrive Assessment: Date of Thrive Assessment Date Thrive assessed 09/29/23 07/26/24 11:22 Currently or been in a relationship where the following occur: No concerns reported Const General: no acute distress and alert Orientation/consciousness: patient oriented x3 Limitations: no limitations HENMT Ears: external ears normal General nose exam: Normal external nose present Mouth: Normal oral and palatal mucosa present and moist mucous membranes Eyes General: appearance normal, both eyes and all related structures Conjunctivae: conjunctivae normal Sclerae: sclerae normal Pupils: Equal, round and reactive pupils present EOM: EOMs intact bilaterally Neck Neck: Yes full ROM, Yes no lymphadenopathy and Yes supple Resp Effort & Inspection: normal respiratory effort and able to speak in complete sentences Auscultation: clear to auscultation bilaterally Cardio Rate: regular rate Rhythm: regular rhythm Heart sounds: S1 normal heart sound present and S2 normal heart sound present GI Palpation (GI): Soft to palpation, nontender and no masses Auscultation: normal bowel sounds Back/Spine/Pelvis Back: No back tenderness Neuro General: patient oriented x3, gait normal, tone normal, moves all extremities, Normal light touch and pain sensation and no focal motor deficits Cranial nerves: Yes CN's II-XII intact bilaterally and Yes Equal, round and reactive pupils present Cognition (Neuro): normal cognition Extrem General: Yes full ROM, Yes no joint enlargement, Yes no clubbing, cyanosis or edema and Yes no calf tenderness Office Procedures Flu Questionnaire Does the patient have a severe egg allergy?: No Does the patient have severe life threatening allergies?: No Does the patient have a fever or illness today?: No Has the patient ever had Guillain-Dedham Syndrome?: No Has the patient ever had any past reaction to a flu shot?: No Immunizations Fluarix Triv [id number] (PF) 45 mcg (15 mcg x 3)/0.5 mL IM syringe Performing Provider: Melly Holman MD Performing Location[place] [facility] Administered by: Dominga Brown CMA on 07/26/24 12:22 Dose Route Admin Location Dispensed Lot Number Expiration Date [facility] [place] 2[place] Rn Document Improvement Specialist 0.5 mL IM Right Deltoid 0.5 mL [id number] 01/30/25 54330-873-59 DBVu VIS Given Date VIS Provided VIS Publication Date 07/26/24 Single Vaccine 21 Eligibility Eligibility Date Funding Source Not [facility] Eligible 07/26/24 Private Coding Level of Care Code Est Pt Level 4 (74676) Complex EM visit Add On G2211 Diagnoses Hypertension, essential I10 Abnormal uterine bleeding N93.9 Needs flu shot Z23 Assessment & Plan Assessment & Plan (1) Hypertension, essential: Comment: controlled with atenolol 25mg QD. Cont. Goal < 140/80 Code(s): I10 - Essential (primary) hypertension Category: Medical Plan: Blood pressure at goal of less than 130/80. Continue with atenolol 25 mg once a day. Reinforced importance of following a low sodium diet, getting regular exercise, and lowering stress levels. Fasting lipid panel ordered as well as basic metabolic panel and vitamin-D level (2) Abnormal uterine bleeding: Code(s): N93.9 - Abnormal uterine and vaginal bleeding, unspecified Category: Medical Plan: Referred back to [facility] for further evaluation management, last pelvic and transvaginal ultrasound done in 2022 showed unremarkable findings. Labs ordered to check iron profile, CBC, and TSH and free T4 (3) Needs flu shot: Code(s): Z23 - Encounter for immunization Plan: Flu vaccine given today Orders: Orders Influenza [id number] Immunization 07/26/24 Z23 - Encounter for immunization IRON PROFILE 07/26/24 N93.9 - Abnormal uterine and vaginal bleeding, unspecified, R00.2 - Palpitations, R53.83 - Other fatigue, R68.89 - Other general symptoms and signs Complete Blood Count Auto Diff 07/26/24 N93.9 - Abnormal uterine and vaginal bleeding, unspecified, R00.2 - Palpitations, R53.83 - Other fatigue, R68.89 - Other general symptoms and signs Lipid Panel 07/26/24 N93.9 - Abnormal uterine and vaginal bleeding, unspecified, R00.2 - Palpitations, R53.83 - Other fatigue, R68.89 - Other general symptoms and signs Basic Metabolic Panel Fasting 07/26/24 N93.9 - Abnormal uterine and vaginal bleeding, unspecified, R00.2 - Palpitations, R53.83 - Other fatigue, R68.89 - Other general symptoms and signs Vitamin D 25-OH Total 07/26/24 N93.9 - Abnormal uterine and vaginal bleeding, unspecified, R00.2 - Palpitations, R53.83 - Other fatigue, R68.89 - Other general symptoms and signs TSH reflex Free T4 07/26/24 N93.9 - Abnormal uterine and vaginal bleeding, unspecified, R00.2 - Palpitations, R53.83 - Other fatigue, R68.89 - Other general symptoms and signs Referrals RADIOLOGIC TECHNICIAN Referral N93.9 - Abnormal uterine and vaginal bleeding, unspecified Medications: Refilled atenolol 25 mg PO DAILY 90 tabs 3RF
== END 2024-07-26 12:18 | disposition home or self-care (01) ==
PROVIDERS: PCP Internal Medicine; Visit Provider Internal Medicine
DX: Z23 Encounter for immunization (principal)

== ENCOUNTER 2024-08-16 09:13 | Outpatient (REF) | payer OTHER, SELFPAY ==
[2024-08-16 09:58] LABS: MANUAL DIFF FLAG NO
[2024-08-16 10:05] LABS: Basophils Percent Auto 0.3 % (0-2); Eosinophils Absolute Auto 0.3 X10*3/uL (0.0-0.4); Eosinophils Percent Auto 3.2 % (0-4); Hematocrit 35.9 % (37.0-47.0); Hemoglobin 12.2 g/dl (12.0-16.0); Imm Gran Abs Auto 0.05 X10*3/uL (0.00-0.03); Imm Gran Pct Auto 0.6 % (0.0-0.4); Lymphocytes Absolute Auto 2.9 X10*3/uL (1.2-4.9); Lymphocytes Percent Auto 32.1 % (20-40); Mean Corpuscular Hemoglobin 28.9 pg (27.0-33.0); Mean Corpuscular Volume 85.1 fL (80.0-98.0); Mean Platelet Volume 9.7 fL (9.4-12.3); Monocytes Absolute Auto 0.6 X10*3/uL (0.1-1.2); Monocytes Percent Auto 7.2 % (2-11); Neutrophils Absolute Auto 5.1 x10*3/uL (2.0-8.3); Neutrophils Percent Auto 56.6 % (45-73); Platelet Count 243 X10*3/uL (160-400); Red Blood Count 4.22 X10*6/uL (4.20-5.50); Red Cell Distribution Width 13.2 % (11.0-16.0)
[2024-08-16 11:00] LABS: Anion Gap 9 (12-20); Blood Urea Nitrogen 9 mg/dL (9-16); Calcium 8.4 mg/dL (8.4-10.2); Carbon Dioxide 25 mmol/L (22-29); Chloride 108 mmol/L (96-108); Cholesterol 169 mg/dL (<200); Estimated Glomerular Filt Rate > 60; Glucose Fasting 87 mg/dL (60-99); HDL Cholesterol 42 mg/dL (>40); Iron 48 mcg/dL (30-160); LDL Cholesterol Calculated 75 mg/dL (<100); Percent Iron Saturation 15 % (15-50); Potassium 3.8 mmol/L (3.3-5.1); Sodium 138 mmol/L (135-145); TSH reflex Free T4 1.58 uIU/mL (0.32-4.0); Total Iron Binding Capacity 319 mcg/dL (228-428); Triglycerides 261 mg/dL (<150); Unsaturated Iron Binding 271 ug/dL; Vitamin D 25-OH Total 8.3 ng/mL (>30)
== END 2024-08-16 09:14 | disposition home or self-care (01) ==
LOC: HO.HMGCLDS 09:13
PROVIDERS: PCP Internal Medicine; Visit Provider Internal Medicine
DX: N93.9 Abnormal uterine and vaginal bleeding, unspecified (principal); R00.2 Palpitations; R53.83 Other fatigue; R68.89 Other general symptoms and signs
CPT/HCPCS: 36415; 80048; 80061; 82306; 83540; 84443; 85025

== ENCOUNTER 2024-09-03 21:15 | Emergency (ER) | payer OTHER, SELFPAY ==
[2024-09-03 21:29] VITALS: BP 137/81; PULSE 115; RESP 18; TEMP 36.8; O2SAT 98; BMI 35.7
[2024-09-03 21:36] VITALS: BP 128/80; PULSE 85; RESP 20; TEMP 36.8; O2SAT 99
[2024-09-03 22:07] LABS: MANUAL DIFF FLAG NO
[2024-09-03 22:09] LABS: Basophils Absolute Auto 0.1 X10*3/uL (0.0-0.2); Basophils Percent Auto 0.6 % (0-2); Eosinophils Absolute Auto 0.2 X10*3/uL (0.0-0.4); Eosinophils Percent Auto 2.1 % (0-4); Hematocrit 35.5 % (37.0-47.0); Hemoglobin 12.6 g/dl (12.0-16.0); Imm Gran Abs Auto 0.05 X10*3/uL (0.00-0.03); Imm Gran Pct Auto 0.5 % (0.0-0.4); Lymphocytes Absolute Auto 2.3 X10*3/uL (1.2-4.9); Lymphocytes Percent Auto 24.5 % (20-40); Mean Corpuscular HGB Conc 35.5 g/dl (31.0-35.0); Mean Corpuscular Hemoglobin 29.6 pg (27.0-33.0); Mean Corpuscular Volume 83.5 fL (80.0-98.0); Mean Platelet Volume 9.5 fL (9.4-12.3); Monocytes Absolute Auto 0.6 X10*3/uL (0.1-1.2); Monocytes Percent Auto 6.8 % (2-11); Neutrophils Absolute Auto 6.2 x10*3/uL (2.0-8.3); Neutrophils Percent Auto 65.5 % (45-73); Platelet Count 272 X10*3/uL (160-400); Red Blood Count 4.25 X10*6/uL (4.20-5.50); Red Cell Distribution Width 13.2 % (11.0-16.0); White Blood Count 9.5 X10*3/uL (4.8-10.8)
[2024-09-03 22:31] LABS: Alanine Aminotransferase 26 U/L (0-31); Albumin Level 3.9 g/dL (3.5-5.0); Alkaline Phosphatase 92 U/L (39-117); Anion Gap 12 (12-20); Aspartate Amino Transferase 20 U/L (5-31); Bilirubin Total 0.4 mg/dL (0.0-1.0); Blood Urea Nitrogen 8 mg/dL (9-16); Calcium 9.2 mg/dL (8.4-10.2); Carbon Dioxide 23 mmol/L (22-29); Chloride 110 mmol/L (96-108); Creatinine Clr Calc Pharmacy 104.4; Estimated Glomerular Filt Rate > 60; Glucose Random 117 mg/dL (60-115); Sodium 141 mmol/L (135-145); Total Protein 7.1 g/dL (6.5-8.0)
[2024-09-04] MEDS: Ibuprofen 600 MG TABLET PO (00:55)
[2024-09-04] MEDS: Metoclopramide HCl 10 MG TABLET PO (00:55)
[2024-09-04 01:09] LABS: HCG Quantitative < 2 mIU/mL
--- NOTE | 2024-09-04 01:16 | ED.FEMALEGU ---
HPI - Female Genitourinary General Chief complaint: Vaginal Bleeding Stated complaint: migraine x1 wk ? menses Time Seen by Provider: 09/04/24 00:32 History of Present Illness ED Provider: Isreal Ramirez MD HPI Narrative: 34-year-old female history of remote? Tubal ligation or other sterilization procedure with nearly daily mild vaginal spotting since May. She has been feeling slightly fatigued over the past few days and felt she may be anemic and came to check this out. She denies any lower abdominal cramping, burning or dysuria or other your logic symptoms. She has had some mild periorbital headaches on and off the past few days she describes these as migraines but mild no associated vision symptoms and nausea vomiting no recent head trauma she has hypertension and reports recent poorly controlled hypertension but this has improved she says. She denies chest pain shortness of breath leg swelling abdominal pain or any other symptoms she is OBGYN appointment upcoming in 1-2 weeks Related Data Previous Rx's ?Medication ?Instructions ?Recorded blood pressure test kit-large #1 ea 10/09/22 cetirizine 10 mg tablet (Zyrtec) 10 mg PO DAILY #90 tabs 09/29/23 pregabalin 75 mg capsule (Lyrica) 75 mg PO BID #60 caps 03/01/24 mirtazapine 7.5 mg tablet 7.5 mg PO BEDTIME #30 tabs 03/02/24 naproxen 500 mg tablet 500 mg PO BID PRN for pain #60 tabs 04/08/24 atenolol 25 mg tablet 25 mg PO DAILY #90 tabs 07/26/24 omeprazole 40 mg capsule,delayed 40 mg PO QAM #90 caps 08/26/24 release Allergies Allergy/AdvReac Type Severity Reaction Status Date / Time aspirin [ASPIRIN] Allergy Mild BRUISES, Verified 09/03/24 21:35 rash penicillin G Allergy Mild Hives Verified 09/03/24 21:35 PMFSH Past Medical History Medical History (Updated 09/04/24 @ 01:21 by Isreal Ramirez MD) Abnormal uterine bleeding Carpal tunnel syndrome on both sides Kidney stone History of irregular menstrual cycles Hx of abnormal cervical Pap smear Left breast lump Surgical History (Updated 07/26/24 @ 12:12 by Melly Hloman MD) History of foot surgery History of section History of tubal ligation Family History Family History (Updated 07/26/24 @ 12:05 by Melly Holman MD) Father Lupus Arthritis Mother Hypertension Sister Ovarian cancer SLE (systemic lupus erythematosus related syndrome) Sister Hypoglycemia Paternal Grandfather Lung cancer Social History Social History Household Members: Spouse and Children Household Members Other:: 3 kids Housing: Apartment Are you a primary home care manager rn to a significant other at home: No Do you presently have visiting nurse or other home services: No Alcohol intake: current Alcohol intake frequency: does not drink Alcohol type: wine Patient Tobacco Use Status: Never used Tobacco Smoked in Last 30 Days: No e-Cigarette/Vaping Use: Never Used Second Hand Smoke Exposure: No Use of substances other than those prescribed or required for medical reasons: No Advance Directives: No Advance Directives Information Provided: Yes Do you have a plan to hurt others: No Plan Patient : No service: No Current occupational status: employed 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 Head: Atraumatic Eyes: Anicteric, Normal conjunctiva. ENT: Moist mucosa, no pallor. Neck: Supple. Respiratory: Breathing comfortably, No distress.Clear to auscultation bilaterally, symmetric chest expansion, No wheeze, rales, ronchi. Cardiovascular: Regular rate and rhythm. No murmurs or rub. Well perfused periphery, warm extremities. No edema. Abdominal: Soft, no objective distension. No palpable masses or obvious organomegaly. No focal tenderness, no guarding, no rebound tenderness or other peritoneal findings. : No flank tenderness. Deferred pelvic Neuro: Alert. Gross movement of all extremities intact. Vital signs: See flowsheet Medications Administered Discontinued Medications Generic Name Dose Route Start Last Admin Trade Name Ming PRN Reason Stop Dose Admin Ibuprofen 600 mg 09/04/24 00:41 09/04/24 00:55 Ibuprofen 600 Mg Tablet PO 09/04/24 00:42 600 mg ONCE ONE Administration Metoclopramide HCl 10 mg 09/04/24 00:41 09/04/24 00:55 Metoclopramide Hcl 10 Mg Tablet PO 09/04/24 00:42 10 mg ONCE ONE Administration Medical Decision Making Medical Decision Making MDM Narrative: 34 with persistent mild vaginal spotting. Non . No cramping. [place] subjectively anemic. No objective relative anemia c/w baseline. Headache associated recently is mild frontal/periorbital. No active currently. Unclear etiology, tension vs migraine. May need optometry assessment. normal neuro exam. reassuring TAUS. Labs reassuring. No UTI sx Lab Data 09/03/24 22:05 09/03/24 22:05 Labs: Lab Results 09/03/24 09/04/24 Range/Units 22:05 00:58 WBC 9.5 (4.8-10.8) X10*3/uL RBC 4.25 (4.20-5.50) X10*6/uL Hgb 12.6 (12.0-16.0) g/dl Hct 35.5 L (37.0-47.0) % MCV 83.5 (80.0-98.0) fL MCH 29.6 (27.0-33.0) pg MCHC 35.5 H (31.0-35.0) g/dl RDW 13.2 (11.0-16.0) % Plt Count 272 (160-400) X10*3/uL MPV 9.5 (9.4-12.3) fL Immature Gran % (Auto) 0.5 H (0.0-0.4) % Neut % (Auto) 65.5 (45-73) % Lymph % (Auto) 24.5 (20-40) % [place] % (Auto) 6.8 (2-11) % Eos % (Auto) 2.1 (0-4) % Baso % (Auto) 0.6 (0-2) % Lymph # (Auto) 2.3 (1.2-4.9) X10*3/uL [place] # (Auto) 0.6 (0.1-1.2) X10*3/uL Eos # (Auto) 0.2 (0.0-0.4) X10*3/uL Baso # (Auto) 0.1 (0.0-0.2) X10*3/uL Abs Immat Gran (auto) 0.05 H (0.00-0.03) X10*3/uL Absolute Neuts (auto) 6.2 (2.0-8.3) x10*3/uL Absolute Nucleated RBC 0.000 (0.0-0.012) X10*3/uL Nucleated RBC % (auto) 0.0 (0.0-0.2) /100WBC Sodium 141 (135-145) mmol/L Potassium 4.0 (3.3-5.1) mmol/L Chloride 110 H (96-108) mmol/L Carbon Dioxide 23 (22-29) mmol/L Anion Gap 12 (12-20) BUN 8 L (9-16) mg/dL Creatinine 0.63 (0.5-1.4) mg/dL Estim Creat Clear Calc 104.4 Estimated GFR > 60 Random Glucose 117 H (60-115) mg/dL Calcium 9.2 D (8.4-10.2) mg/dL Total Bilirubin 0.4 (0.0-1.0) mg/dL AST 20 (5-31) U/L ALT 26 (0-31) U/L Alkaline Phosphatase 92 (39-117) U/L Total Protein 7.1 (6.5-8.0) g/dL Albumin 3.9 (3.5-5.0) g/dL Beta HCG, Quant < 2 mIU/mL Urine Color Yellow Urine Appearance Turbid Urine pH 7.0 (5.0-9.0) Ur Specific [place] 1.020 (1.005-1.025) Urine Protein Negative (Neg-Trace) mg/dL Urine Glucose (UA) Negative (Negative) mg/dL Urine Ketones Negative (Negative) mg/dL Urine Blood Large (3+) H (Negative) Urine Nitrite Negative (Negative) Ur Leukocyte Esterase Trace H (Negative) Urine RBC >20 H (0-2) /HPF Urine WBC 0-5 (0-5) /HPF Ur Squamous Epith Cells 3-5 (0-2) /HPF Urine Bacteria None Seen (None Seen) Hyaline Casts 0-2 (0-2) /LPF Urine Test NEGATIVE (NEGATIVE) Procedures Procedure Narrative Procedure Narrative: EMERGENCY ULTLRASOUND INTERPRETATION-Limited Uterus /abd [This study was ordered, performed, and interpreted by myself. The study reveals: Impression: Normal transabdominal non uterus ] [Indication: pelvic pain vaginal bleeding Uterus: normal-appearing gross uterus no free fluid. Nonvisualized adnexa. Free Fluid: None Adnexa: nonvisualized ovaries additional: Full bladder with anechoic urine Performed by: Isreal Ramirez MD Images were stored on EMR through [employer] image archive software. CPT: 79383] Discharge Plan Discharge Clinical Impression: Menorrhagia, Dysfunctional uterine bleeding Patient Disposition: Home, Self-Care Instructions: Dysfunctional Uterine Bleeding (ED) Additional Instructions: DISCHARGE DIAGNOSES: Abnormal uterine bleeding unclear cause at this time no associated complications or anemia identified on this visit HISTORY OF PRESENTATION: persistent mild vaginal spotting Headache EMERGENCY DEPARTMENT COURSE,TESTS, TREATMENTS: While in the ED today we performed a bedside ultrasound of your uterus which showed no gross or major abnormalities. We tested your blood there was no signs of anemia or other complications DISCHARGE MEDICATIONS: [We have made no changes to your regular medication regimen] FOLLOW-UP: Call your primary or general physician soon as possible to discuss your symptoms, your ED visit and to discuss follow up plans continue with your previously scheduled OBGYN appointment call your primary doctor about your headaches and blood pressure control INSTRUCTIONS & RETURN PRECAUTIONS: If any symptoms change first call your primary physician, if it is after-hours your primary doctors office should have a provider addictions therapist you can speak with. If the symptoms are severe or very concerning to you then call 911 or return to the ED. Isreal Ramirez MD Emergency Physician [facility] Prescriptions: No Action mirtazapine 7.5 mg tablet 7.5 mg PO BEDTIME Qty: 30 0RF naproxen 500 mg tablet 500 mg PO BID PRN (Reason: for pain) Qty: 60 0RF omeprazole 40 mg capsule,delayed release(DR/EC) 40 mg PO QAM Qty: 90 0RF pregabalin [Lyrica] 75 mg capsule 75 mg PO BID Qty: 60 3RF (DME) blood pressure test kit-large Kit See Rx Instructions .ROUTE .MEDSUPPLY Qty: 1 0RF Rx Instructions: As directed cetirizine [Zyrtec] 10 mg tablet 10 mg PO DAILY Qty: 90 2RF atenolol 25 mg tablet 25 mg PO DAILY Qty: 90 3RF Interventions: ED Discharge Assessment Last Done: 09/04/24 01:52 Discharge Date/Time: 09/04/24 01:53 Print Language: Maltese
[2024-09-04 01:29] LABS: UPreg QC Valid YES; Urine Pregnancy NEGATIVE (NEGATIVE)
[2024-09-04 01:30] LABS: Appearance Urine Turbid; Color Urine Yellow; Glucose Urine UA Negative (Negative); Leukocyte Esterase Urine Trace (Negative); Nitrite Urine Negative (Negative); UMIC TRIGGER UACC YES; Urine Blood Large (3+) (Negative); Urine Ketones Negative (Negative); Urine Protein Negative (Neg-Trace)
[2024-09-04 01:36] LABS: Bacteria Urine None Seen (None Seen); Hyaline Casts Urine 0-2 /LPF (0-2); RBC Urine >20 /HPF (0-2); WBC Urine 0-5 /HPF (0-5)
[2024-09-04 01:52] VITALS: BP 131/73; PULSE 93; RESP 88; TEMP 36.8; O2SAT 98
== END 2024-09-04 01:53 | disposition home or self-care (01) ==
PROVIDERS: Emergency Provider Emergency Medicine; PCP Internal Medicine
DX: N92.0 Excessive and frequent menstruation with regular cycle (principal); N93.8 Other specified abnormal uterine and vaginal bleeding; R10.2 Pelvic and perineal pain
CPT/HCPCS: 36415; 80053; 81001; 81025; 84702; 85025; 99284

== ENCOUNTER 2024-10-05 12:49 | Outpatient (AMB) | payer OTHER, SELFPAY ==
--- NOTE | 2024-10-05 12:55 | MHC.OFFVIS ---
Vital Signs 10/05/24 12:57 Height 4 ft 9 in Weight 163 lb BMI 35.3 BP 106/80 Intake Visit Reasons: Irregular menses/30 min Intake Note: Per patient has been bleeding consistently since May 27 2024, some days heavier then others. Today was the first time where she used the bathroom and didnt notice any blood. Last month or so has been feeling crampy. Media Producer: Media Producer Present (Vy) Accompanied by: Self / Same As Patient Allergies aspirin [ASPIRIN] Allergy (Mild, Verified 10/05/24 13:05) BRUISES, rash penicillin G Allergy (Mild, Verified 10/05/24 13:05) Hives Medication List - Last Reconciled 10/05/24 by Alexandra King CNM atenolol 25 mg PO DAILY blood pressure test kit-large As directed cetirizine (Zyrtec) 10 mg PO DAILY mirtazapine 7.5 mg PO BEDTIME naproxen 500 mg PO BID PRN omeprazole 40 mg PO QAM pregabalin (Lyrica) 75 mg PO BID Is last menstrual period known: No Post menopausal: No Patient : No HPI HPI Irregular menses/30 min: Details: Patient is here because she has basically been bleeding often on since May 27. She normally gets regular menses. One time in the past she skipped a period for maybe 2 months but that was about it. She has had C-sections for 3 kids and she has had her tubes tied after the of her 11 year old. She said she was bleeding so much end she was having accidents that she had to stop working at the [employer] that she had been working in. Today's the 1st day that she has not had any bleeding in September she was feeling weak and her brought her to the emergency room because she thought she might be anemic with all the bleeding. She says the doctor did an ultrasound but told her she should have another 1 to follow-up. She has made this appointment follow-up she is here with her 13-year-old daughter today. She does thinks she has gained about 30 lb in the last year. Her other child has diabetes so 1 day when she was feeling a little bit weak she checked her blood sugar and it was 59. [facility] Medical History (Updated 09/05/24 @ 00:00 by Allyn Rashid) Abnormal uterine bleeding Carpal tunnel syndrome on both sides Kidney stone History of irregular menstrual cycles Hx of abnormal cervical Pap smear Left breast lump Surgical History (Updated 07/26/24 @ 12:12 by Melly Holman MD) History of foot surgery History of section History of tubal ligation Family History (Updated 07/26/24 @ 12:05 by Melly Holman MD) Father Lupus Arthritis Mother Hypertension Sister Ovarian cancer SLE (systemic lupus erythematosus related syndrome) Sister Hypoglycemia Paternal Grandfather Lung cancer Social History Household Members: Spouse and Children Household Members Other:: 3 kids Housing: Apartment Are you a primary md do resident urgent care to a significant other at home: No Do you presently have visiting nurse or other home services: No Alcohol intake: current Alcohol intake frequency: does not drink Alcohol type: wine Patient Tobacco Use Status: Never used Tobacco e-Cigarette/Vaping Use: Never Used Second Hand Smoke Exposure: No Patient : No service: No Current occupational status: employed 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, 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 Current occupational exposures/hazards: No Gender identity: Female Cognitive needs: No Hearing needs: No Vision needs: No Female Reproductive History Menstrual Age of Menarche: 10 Total pregnancies: 3 Full term: 3 Date of last pap smear: 10/31/20 (negative pap smear, negative hpv) History of abnormal pap smear: No History of STI: No Physical Exam Vital Signs: Last Vital Signs BP 106/80 10/05/24 12:57 BMI result Body Mass Index 35.3 Other: Vagina pink and clear very healthy-appearing clear mucus cervix pink healthy appearing very very posterior long thick closed mobile nontender difficult to visualize os secondary to extreme posterior position may need longer larger speculum at next exam for EMB. Uterus mobile nontender but difficult to fully palpate secondary to adipose. External Female Exam: normal external appearance Speculum Exam - Vagina: normal appearance of the vagina and normal vaginal discharge Speculum Exam - Cervix: normal appearance of the cervix Bimanual exam- vagina & uterus: normal bimanual exam, uterine size normal, consistency normal, uterine mobility normal, uterine shape normal and non-tender Bimanual Exam- Adnexa, other: normal adnexae, no masses and No adnexal tenderness Results Reviewed Results Reviewed: Name: Kath Kiran Age/[facility]: 33[facility] 1990 [id number]#: [id number] Attend Dr: Alexandra King CNM Re03/16/24 Status: DEP REF Location: .LAB Disch: SPEC : [id number] KEVYN: 03/16/24-UNK STATUS: COMP REQ : [id number] RECD: 03/16/[address]: Alexandra King CNM COMP: 03/18/24-1337 ENTERED: 03/16/[address]: Physician,Nonstaff ORDERED: PAP+[id number] COMMENTS: SEE SCANNED RESULTS IN EMR Test Result Flag Reference HPV 16 RNA Test not performed HPV 18/45 RNA Test not performed HPV mRNA E6/E7 Not Detected Not Detected Methodology: Woven Label Designer-Mediated Amplification This assay detects E6/E7 viral messenger RNA (mRNA) from 14 high-risk HPV types (16,18,31,33,35,39,45,51,52,56,58,59,66,68). Cervical sources are required for HPV testing. If a vaginal source from a patient who has had a total hysterectomy with removal of cervix was submitted, please contact the testing laboratory for alternative testing options. For additional information, please refer to http://education.Photos I Like/faq/RUB186r7 (This link if provided for information/ educational purposes only.) THIS TEST WAS PERFORMED AT: [facility] [address] [place] [phone] BLAKE FERNANDEZ MD Thin Prep [facility] SEE NOTE None given Report Status Test not performed Clinical Info. SEE NOTE None given LMP SEE NOTE NONE GIVEN Previous PAP SEE NOTE NONE GIVEN Prev Bx. Date SEE NOTE NONE GIVEN [place] SEE NOTE Satisfactory for evaluation. Endocervical/transformation zone component present. Gen. Categor. Test not performed Interp/Result SEE NOTE Cytology Results: Negative for intraepithelial lesion or malignancy. Cyto. Cmmt. SEE NOTE This Pap test has been evaluated with computer assisted technology. [employer]. SEE NOTE MSM, CT(ASCP) CT screening location: [address] [address] Review [employer] Test not performed Pathologist Test not performed PAP Infection Test not performed See Note SEE NOTE EXPLANATORY NOTE: The Pap is a screening test for cervical cancer. It is not a diagnostic test and is subject to false negative and false positive results. It is most reliable when a satisfactory sample, regularly obtained, is submitted with relevant clinical findings and history, and when the Pap result is evaluated along with historic and current clinical information. END OF REPORT Name: Kath Kiran Age/Sex: 34/F : 1990 Unit#: [id number] Attend Dr: Isreal Ramirez MD Re09/03/24 Status: DEP ER Location: [facility] Disch: SPEC : [id number] KEVYN: 09/03/24 STATUS: COMP REQ : [id number] RECD: 09/03/[address]: Isreal Ramirez MD COMP: 09/04/24 ENTERED: 09/03/[address]: Melly Holman MD [facility] ED Physician ORDERED: CMP, HCG Quant Test Result Flag Reference Sodium 141 135-145 mmol/L Potassium 4.0 3.3-5.1 mmol/L CL 110 H 96-108 mmol/L CO2 23 22-29 mmol/L Gap 12 12-20 BUN 8 L 9-16 mg/dL Creat 0.63 0.5-1.4 mg/dL Estimated CrCl 104.4 Provided height and weight: 144.78 cm, 74.8 kg. eGFR (calculated from the MDRD study equation) and eCrCl (calculated from the Cockcroft-Gault equation) are based on different parameters and may not yield comparable results. If eCrCl result is absurd, please check patient's height/weight. eGFR > 60 Chronic Kidney Disease: Estimated GFR < 60 mL/min/1.73m2 Severe Kidney Disease: Estimated GFR < 15 mL/min/1.73m2 Glucose, Random 117 H 60-115 mg/dL CA 9.2 # 8.4-10.2 mg/dL Total Bili 0.4 0.0-1.0 mg/dL AST (GOT) 20 5-31 U/L ALT (GPT) 26 0-31 U/L Protein, Total 7.1 6.5-8.0 g/dL Alb 3.9 3.5-5.0 g/dL Alk Phos 92 39-117 U/L HCG Quant < 2 mIU/mL Weeks post LMP Approximate hCG (Last Menstrual Period) Range (mIU/ml) 3 - 4 weeks 9 - 130 4 - 5 weeks 75 - 2,600 5 - 6 weeks 850 - 20,800 6 - 7 weeks 4000 - 100,200 7 - 12 weeks 11,500 - 289,000 12 - 16 weeks 18,300 - 137,000 16 - 29 weeks (2nd trimester) 1,400 - 53,000 29 - 41 weeks (3rd trimester) 940 - 60,000 The Mayer B-hCG assay is used for the early detection of ; it cannot be used to diagnose any condition unrelated to . If a B-hCG level is not supported by the clinical evidence, results should be confirmed by an alternative method (qualitative urine hCG, for example). END OF REPORT Name: Kath Kiran Age/Sex: 34/F : 1990 Unit#: [id number] Attend Dr: Isreal Ramirez MD Re09/03/24 Status: [facility] ER Location: [facility] Disch: SPEC : [id number] KEVYN: 09/03/24 STATUS: COMP REQ : [id number] RECD: 09/03/[address]: Isreal Ramirez MD COMP: 09/03/24 ENTERED: 09/03/[address]: Melly Holman MD [facility] ED Physician ORDERED: CBC Auto Diff Test Result Flag Reference WBC 9.5 4.8-10.8 X10*3/uL RBC 4.25 4.20-5.50 X10*6/uL HGB 12.6 12.0-16.0 g/dl HCT 35.5 L 37.0-47.0 % MCV 83.5 80.0-98.0 fL MCH 29.6 27.0-33.0 pg MCHC 35.5 H 31.0-35.0 g/dl RDW 13.2 11.0-16.0 % PLT 272 160-400 X10*3/uL MPV 9.5 9.4-12.3 fL Neut Pct Auto 65.5 45-73 % ImGran Pct Auto 0.5 H 0.0-0.4 % Lymp Pct Auto 24.5 20-40 % Stoddard Pct Auto 6.8 2-11 % Eos Pct Auto 2.1 0-4 % Baso Pct Auto 0.6 0-2 % NRBC Pct Auto 0.0 0.0-0.2 /100WBC ANC Neut Abs # 6.2 2.0-8.3 x10*3/uL ImGran Abs Auto 0.05 H 0.00-0.03 X10*3/uL Lymph Abs Auto 2.3 1.2-4.9 X10*3/uL Stoddard Abs Auto 0.6 0.1-1.2 X10*3/uL Eos Abs Auto 0.2 0.0-0.4 X10*3/uL Baso Abs Auto 0.1 0.0-0.2 X10*3/uL NRBC Abs Auto 0.000 0.0-0.012 X10*3/uL END OF REPORT gunner: Kath Kiran Age/Sex: 34/F : 1990 Unit#: [id number] Attend Dr: Melly Holman MD Re08/16/24 Status: DEP REF Location: [facility] Disch: SPEC : [id number] KEVYN: 08/16/24 STATUS: COMP REQ : [id number] RECD: 08/16/[address]: Melly Holman MD COMP: 08/16/24 ENTERED: 08/16/[address]: ORDERED: Met Prof Fast, IRON PROF, Lipid Panel, Vitamin D 25-OH, TSH Rflx Test Result Flag Reference Sodium 138 135-145 mmol/L Potassium 3.8 3.3-5.1 mmol/L CL 108 96-108 mmol/L CO2 25 22-29 mmol/L Gap 9 L 12-20 BUN 9 9-16 mg/dL Creat 0.64 0.5-1.4 mg/dL eGFR > 60 Chronic Kidney Disease: Estimated GFR < 60 mL/min/1.73m2 Severe Kidney Disease: Estimated GFR < 15 mL/min/1.73m2 FBS 87 60-99 mg/dL CA 8.4 # 8.4-10.2 mg/dL Iron 48 30-160 mcg/dL TIBC 319 228-428 mcg/dL Saturation 15 15-50 % UIBC 271 ug/dL Triglyceride 261 H <150 mg/dL Desirable Triglyceride: less than 150 mg/dL Borderline High Triglyceride 150-199 mg/dL High Triglyceride: 200-499 mg/dL Very High Triglyceride: greater than or equal to 5OO mg/dL Cholesterol 169 <200 mg/dL Desirable Cholesterol: less than 200 mg/dL Borderline High Cholesterol: 200-239 mg/dL High Cholesterol: greater than 239 mg/dL LDL Calculated 75 <100 mg/dL Desirable LDL: less than 100 mg/dL Near Optimal/Above Optimal LDL: 110-129 mg/dL Borderline High LDL: 130-159 mg/dL High LDL: 160-189 mg/dL Very High LDL: greater than or equal to 190 mg/dL HDL 42 >40 mg/dL Desirable HDL: greater than 40 mg/dL Note: This HDL assay may give artificially low results in patients with liver disease. Vit D 25-OH Tot 8.3 L >30 ng/mL Health Based Reference Values* < 20 ng/mL Deficient 20-30 ng/mL Insufficient > 30 ng/mL Sufficient *Sadie GORDILLO. N Engl J Med. 2007;357:266-280 Care must be taken in interpreting Vitamin D results from different laboratories and methodologies. Published data demonstrated that results from patients undergoing hemodialysis may show a negative bias when tested with various automated 25-OH vitamin D assays when compared to LC-MS/MS. When testing samples from patients whose predominant form of Vitamin D is Vitamin D2, such as patients receiving Vitamin D2 supplementation, results that are subtherapeutic should be confirmed with another method such as LC-MS/MS. TSH 1.58 0.32-4.0 uIU/mL Assessment & Plan Assessment & Plan (1) Hypertension, essential: Comment: controlled with atenolol 25mg QD. Cont. Goal < 140/80 Code(s): I10 - Essential (primary) hypertension Category: Medical (2) Menorrhagia: Code(s): N92.0 - Excessive and frequent menstruation with regular cycle Category: Medical (3) Premenopausal patient: Comment: Some changes to the quality of her menses that might be weight related.... Code(s): N95.9 - Unspecified menopausal and perimenopausal disorder Category: Medical (4) Cervical cancer screening: Comment: 03/16/2024 Pap negative with negative HPV. Code(s): Z12.4 - Encounter for screening for malignant neoplasm of cervix Category: Medical (5) Abnormal uterine bleeding: Code(s): N93.9 - Abnormal uterine and vaginal bleeding, unspecified Category: Medical (6) Severe obesity (BMI 35.0-35.9 with comorbidity): Comment: Lifestyle modifications encouraged/see note she has lost 2 lb, 03/16/24. Code(s): E66.01 - Morbid (severe) obesity due to excess calories; Z68.35 - Body mass index [BMI] 35.0-35.9, adult Category: Medical Plan I reviewed the patient's history she was a very good historian. Reviewed the ER records the doctor who checked her had done a bedside ultrasound that did not show anything worrisome or masses. She was not anemic on that visit and just prior to that she had had a thyroid level checked via her primary care provider and had had other blood work done as well. Random blood sugar in the emergency room was 117 but then again it was random. I reviewed the it is a common thing to have a dysfunctional uterine bleeding pattern but would does need to be evaluated ensure that she does not have any thing more serious like cancer. I was going to order much of the lab work that was done in the last month but since it has been done and was all within normal limits there is no need to repeated today. Today her bleeding has stopped completely and she has a completely normal benign exam. I am ordering a pelvic ultrasound and we are going to plan on an endometrial biopsy at the visit following the ultrasound where we review the results of the ultrasound. Testing done today for gonorrhea chlamydia trichomoniasis bacterial vaginosis and yeast not that there is any worry of any of these but if there is some bacteria or anything else present there is an opportunity to treat before doing the endometrial biopsy. Patient says she understands completely and I reviewed all the results from her previous care provider's with her as well. I also did discuss that she feels she has gained weight in last year discussed that it is a very common experience for women when they gain weight to have an imbalance of the hormonal interplay such that it can contribute to an ovulatory cycles formation of cysts and a dysfunctional bleeding pattern if all of the testing is negative for any malignancy. It maybe recommended to consider some hormonal manipulation to regulate her menstrual Cyclen some way possibly with the Mirena IU S. Of note a medium Graves speculum was done today her cervix was markedly posterior and a little bit difficult to visualize the very pink smooth healthy and tightly closed nulliparous very clear healthy mucous noted no blood in vault today we will await the ultrasound findings and do an endometrial biopsy at next visit. She says she did not have any other questions. Timeframe/Date Comment Pelvic ultrasound Endometrial biopsy at follow-up visit after ultrasound Orders: Orders US pelvic and transvaginal Today I10 - Essential (primary) hypertension, N92.0 - Excessive and frequent menstruation with regular cycle, N93.9 - Abnormal uterine and vaginal bleeding, unspecified, N95.9 - Unspecified menopausal and perimenopausal disorder, Z12.4 - Encounter for screening for malignant neoplasm of cervix Coding Level of Care Code Est Pt Level 3 (12303) Diagnoses Hypertension, essential I10 Menorrhagia N92.0 Premenopausal patient N95.9 Cervical cancer screening Z12.4 Abnormal uterine bleeding N93.9 Severe obesity (BMI 35.0-35.9 with comorbidity) E66.01; Z68.35
[2024-10-05 12:57] VITALS: BP 106/80; BMI 35.3
== END 2024-10-05 14:07 | disposition home or self-care (01) ==
PROVIDERS: PCP Internal Medicine; Visit Provider Advanced Practice Midwife
DX: I10 Essential (primary) hypertension (principal); N92.0 Excessive and frequent menstruation with regular cycle; N95.9 Unspecified menopausal and perimenopausal disorder; Z12.4 Encounter for screening for malignant neoplasm of cervix; N93.9 Abnormal uterine and vaginal bleeding, unspecified; E66.01 Morbid (severe) obesity due to excess calories; Z68.35 Body mass index [BMI] 35.0-35.9, adult
CPT/HCPCS: 99213

== ENCOUNTER 2024-10-05 12:49 | Outpatient (REF) | payer OTHER, SELFPAY ==
[2024-10-06 13:46] LABS: CT PCR NOT DETECTED (Not Detect.); NG PCR NOT DETECTED (Not Detect.)
[2024-10-06 17:12] LABS: Bacterial Vaginosis PCR NEGATIVE (Negative); Candida Group PCR NOT DETECTED (Not Detect); Candida glab krusei PCR NOT DETECTED (Not Detect); Trichomonas vaginalis PCR NOT DETECTED (Not Detect)
== END 2024-10-05 12:50 | disposition home or self-care (01) ==
LOC: HO.LAB 12:49
PROVIDERS: PCP Internal Medicine; Visit Provider Advanced Practice Midwife
DX: I10 Essential (primary) hypertension (principal); N89.8 Other specified noninflammatory disorders of vagina; Z20.2 Contact with and (suspected) exposure to infections with a predominantly sexual mode of transmission; N92.0 Excessive and frequent menstruation with regular cycle; N95.9 Unspecified menopausal and perimenopausal disorder; Z12.4 Encounter for screening for malignant neoplasm of cervix; E66.01 Morbid (severe) obesity due to excess calories; Z68.35 Body mass index [BMI] 35.0-35.9, adult
CPT/HCPCS: 81515; 87491; 87591; 99212

== ENCOUNTER 2024-10-19 15:22 | Outpatient (REF) | payer OTHER, SELFPAY ==
--- NOTE | ~2024-10-19 | US_ITS ---
EXAMINATION: US PELVIS TRANSABDOMINAL AND TRANSVAGINAL HISTORY: N92.0 - Excessive and frequent menstruation with regular cycle COMPARISON: Comparison is made with the prior examination dated 09/24/2022. TECHNIQUE: Transabdominal and endovaginal real-time 2D ying-scale ultrasound was performed. Color Doppler was also performed. FINDINGS: Uterus: The uterus is normal in size, measuring 9.9 x 4.9 x 6.4 cm. Myometrium has a normal echotexture. No fibroids are identified. Endometrium: The endometrial stripe measures 25 mm in thickness. Right ovary: The right ovary measures 8.6 x 9.1 x 10.5 cm. The right ovary contains an 8.2 x 9.1 x 10.0 cm unilocular cyst. Arterial and venous flow is noted in the wall. Left ovary: The left ovary measures 4.0 x 3.5 x 3.6 cm. The left ovary contains a 3.6 x 2.8 x 2.7 cm cyst. Color Doppler analysis of the bilateral ovarian arteries and veins is normal. Pelvic fluid: none. US/US pelvic and transvaginal IMPRESSION: 1. Thickened endometrial stripe. Correlation with the phase of the menstrual cycle is recommended. 2. 8.2 x 9.1 x 10.0 cm right ovarian unilocular cyst demonstrating arterial and venous flow. Follow-up is recommended. 3. 3.6 x 2.8 x 2.7 cm left ovarian cyst. Follow-up is recommended. Electronically signed by: Serafin Patiño MD 10/20/2024 07:51 AM EDT
== END 2024-10-19 15:23 | disposition home or self-care (01) ==
LOC: HO.US 15:22
PROVIDERS: PCP Internal Medicine; Visit Provider Advanced Practice Midwife
DX: N92.0 Excessive and frequent menstruation with regular cycle (principal); N95.9 Unspecified menopausal and perimenopausal disorder; N93.9 Abnormal uterine and vaginal bleeding, unspecified; I10 Essential (primary) hypertension
CPT/HCPCS: 76830; 76856

== ENCOUNTER → 2024-10-19 15:24 | Outpatient (BNV) | payer OTHER, SELFPAY | PROVIDERS: PCP Internal Medicine; Visit Provider Radiology Diagnostic Radiology | DX: N83.291 Other ovarian cyst, right side (principal); N83.292 Other ovarian cyst, left side | CPT/HCPCS: 76830; 76856 ==

== ENCOUNTER 2024-10-20 15:29 | Outpatient (AMB) | payer OTHER, SELFPAY ==
--- NOTE | 2024-10-20 15:35 | A.OFFVIS_ITS ---
Intake Visit Reasons: Test result Allergies aspirin [ASPIRIN] Allergy (Mild, Verified 10/20/24 15:37) BRUISES, rash penicillin G Allergy (Mild, Verified 10/20/24 15:37) Hives Is last menstrual period known: No (irregular period) HPI HPI Test result: Details: This is a tele visit to review patient's ultrasound results that was done yesterday please see the ultrasound it shows a thickened endometrial lining as well as a 10 cm right ovarian cyst as well as a left ovarian cyst. I informed the patient of all of the findings and let her know that she would need to be seen and referred to [facility] for evaluation of these as this was beyond something that we could accommodate here in the system, and she further evaluation there. Referral has been placed to have patient referred to [facility] park maintainer. And I asked her to call in if she has not heard about an appointment by Thursday. Additionally I reviewed that if she has any severe pain or indeed hemorrhaging she would need to go to the emergency room in the meantime as this could mean that is something happening with the ovarian cyst or with the thickened lining. Given that she needs to be seen at [facility] for this issue that is where she should go if she does have an emergency issue. [facility] Medical History (Updated 10/20/24 @ 15:55 by Alexandra King CNM) Abnormal uterine bleeding Carpal tunnel syndrome on both sides Kidney stone History of irregular menstrual cycles Hx of abnormal cervical Pap smear Left breast lump Surgical History (Updated 07/26/24 @ 12:12 by Melly Holman MD) History of foot surgery History of section History of tubal ligation Family History (Updated 07/26/24 @ 12:05 by Melly Holmna MD) Father Lupus Arthritis Mother Hypertension Sister Ovarian cancer SLE (systemic lupus erythematosus related syndrome) Sister Hypoglycemia Paternal Grandfather Lung cancer Social History Household Members: Spouse and Children Household Members Other:: 3 kids Housing: Apartment Are you a primary rn medicare to a significant other at home: No Do you presently have visiting nurse or other home services: No Alcohol intake: current Alcohol intake frequency: does not drink Alcohol type: wine Patient Tobacco Use Status: Never used Tobacco e-Cigarette/Vaping Use: Never Used Second Hand Smoke Exposure: No service: No Current occupational status: employed 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, 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 Current occupational exposures/hazards: No Gender identity: Female Cognitive needs: No Hearing needs: No Vision needs: No Female Reproductive History Menstrual Age of Menarche: 10 Telehealth Telehealth Telehealth Platform: Telephone Location of provider rendering services: practice address Location of patient: address on file Patient Identification confirmed using: Name, : Yes Telehealth method: voice only Patient verbally consented to treatment: Yes Patient verbally consented to billing insurance company: Yes Patient informed of any privacy concerns related to visit: Yes Minutes spent on Phone/Video with Pt.: 8 (10cr/8speaking w pt/12charting/making plan of care, transfer) Results Reviewed Results Reviewed: Patient: Kath Kiran MR#: [id number] : 1990 Acct:[id number] Age/Sex: 34 / F ADM Date: 10/19/24 Loc: HO.US Attending Dr: Alexandra King CNM Ordering Physician: Alexandra King CNM Date of Service: 10/19/24 Procedure(s): US pelvic and transvaginal Accession Number(s): [id number] cc: Melly Holman MD; Alexandra King CNM~ EXAMINATION: US PELVIS TRANSABDOMINAL AND TRANSVAGINAL HISTORY: N92.0 - Excessive and frequent menstruation with regular cycle COMPARISON: Comparison is made with the prior examination dated 09/24/2022. TECHNIQUE: Transabdominal and endovaginal real-time 2D ying-scale ultrasound was performed. Color Doppler was also performed. FINDINGS: Uterus: The uterus is normal in size, measuring 9.9 x 4.9 x 6.4 cm. Myometrium has a normal echotexture. No fibroids are identified. Endometrium: The endometrial stripe measures 25 mm in thickness. Right ovary: The right ovary measures 8.6 x 9.1 x 10.5 cm. The right ovary contains an 8.2 x 9.1 x 10.0 cm unilocular cyst. Arterial and venous flow is noted in the wall. Left ovary: The left ovary measures 4.0 x 3.5 x 3.6 cm. The left ovary contains a 3.6 x 2.8 x 2.7 cm cyst. Color Doppler analysis of the bilateral ovarian arteries and veins is normal. Pelvic fluid: none. US/US pelvic and transvaginal IMPRESSION: 1. Thickened endometrial stripe. Correlation with the phase of the menstrual cycle is recommended. 2. 8.2 x 9.1 x 10.0 cm right ovarian unilocular cyst demonstrating arterial and venous flow. Follow-up is recommended. 3. 3.6 x 2.8 x 2.7 cm left ovarian cyst. Follow-up is recommended. Electronically signed by: Serafin Patiño MD 10/20/2024 07:51 AM EDT RP Dictated By: Serafin Patiño MD Signed By: <Electronically signed by Serafin Patiño MD in OV> 10/20/24 0751 DD/ 1547 TD/TT: 10/19/24 1614 Coding Validator: Please also see ER visit no anemia noted. Assessment & Plan Assessment & Plan (1) Premenopausal patient: Comment: Some changes to the quality of her menses that might be weight related.... Code(s): N95.9 - Unspecified menopausal and perimenopausal disorder Category: Medical (2) Menorrhagia: Code(s): N92.0 - Excessive and frequent menstruation with regular cycle Category: Medical (3) Ovarian cyst: Code(s): N83.209 - Unspecified ovarian cyst, unspecified side Category: Medical Plan This is a tele visit to review patient's ultrasound results that was done yesterday please see the ultrasound it shows a thickened endometrial lining as well as a 10 cm right ovarian cyst as well as a left ovarian cyst. I informed the patient of all of the findings and let her know that she would need to be seen and referred to [facility] for evaluation of these as this was beyond something that we could accommodate here in the system, and she further evaluation there. Referral has been placed to have patient referred to [facility] park maintainer. And I asked her to call in if she has not heard about an appointment by Thursday. Additionally I reviewed that if she has any severe pain or indeed hemorrhaging she would need to go to the emergency room in the meantime as this could mean that is something happening with the ovarian cyst or with the thickened lining. Given that she needs to be seen at [facility] for this issue that is where she should go if she does have an emergency issue. Timeframe/Date Comment Patient being referred to [facility] cogeneration technician for management Coding Level of Care Code Tele Est Pt Level 3 (31277) Diagnoses Premenopausal patient N95.9 Menorrhagia N92.0 Ovarian cyst N83.209
== END 2024-10-20 15:56 | disposition home or self-care (01) ==
LOC: HO.HWSM 15:29
PROVIDERS: PCP Internal Medicine; Visit Provider Advanced Practice Midwife
DX: N95.9 Unspecified menopausal and perimenopausal disorder (principal); N92.0 Excessive and frequent menstruation with regular cycle; N83.209 Unspecified ovarian cyst, unspecified side
CPT/HCPCS: 99213

== ENCOUNTER 2024-11-17 09:23 | Outpatient (REF) | payer OTHER, SELFPAY ==
--- NOTE | ~2024-11-17 | XR_ITS ---
EXAMINATION: XR CHEST 4 OR MORE VIEWS HISTORY: N93.9 - Abnormal uterine and vaginal bleeding, unspecified COMPARISON: There are no prior studies for comparison. FINDINGS: PA, lateral, and bilateral oblique views of the chest are submitted. The lungs are expanded and clear. There is no pleural effusion, pneumothorax, or pulmonary vascular congestion. The heart is normal in size. The bones are intact. XR/XR chest 4 views IMPRESSION: No acute cardiopulmonary abnormality. Electronically signed by: Serafin Patiño MD 11/17/2024 02:55 PM EDT
[2024-11-17 12:02] LABS: Blood Urea Nitrogen 8 mg/dL (9-16); Carcinoembryonic Antigen < 1.73 ng/mL; Estimated Glomerular Filt Rate > 60
[2024-11-18 08:59] LABS: CA-125 15 U/mL (<35)
== END 2024-11-17 09:24 | disposition home or self-care (01) ==
LOC: HO.LAB 09:23
PROVIDERS: PCP Internal Medicine; Visit Provider Advanced Practice Midwife
DX: N92.0 Excessive and frequent menstruation with regular cycle (principal); N93.9 Abnormal uterine and vaginal bleeding, unspecified; N83.209 Unspecified ovarian cyst, unspecified side
CPT/HCPCS: 36415; 71048; 82378; 82565; 84520; 86304; 99212

== ENCOUNTER 2024-11-17 09:23 | Outpatient (AMB) | payer OTHER, SELFPAY ==
[2024-11-17 09:24] VITALS: BP 130/72; BMI 36.6
--- NOTE | 2024-11-17 09:24 | MHC.OFFVIS ---
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 Present Information Interpreted: clinical only Last Pattern Grader: Last Pattern Grader Present Allergies aspirin [ASPIRIN] Allergy (Mild, Verified 11/17/24 09:24) BRUISES, rash penicillin G Allergy (Mild, Verified 11/17/24 09:24) Hives Medication List - Last Reconciled 11/17/24 by Alexandra King CNM atenolol 25 mg PO DAILY blood pressure test kit-large As directed cetirizine (Zyrtec) 10 mg PO DAILY mirtazapine 7.5 mg PO BEDTIME naproxen 500 mg PO BID PRN omeprazole 40 mg PO QAM pregabalin (Lyrica) 75 mg PO BID Is last menstrual period known: Yes (irregular menses) HPI HPI Menses issues: Details: Because she is requesting a letter to say that she can not work until she has everything evaluated and treated she stopped work because of the heavy bleeding on September 19 of this year. And she has not been able to work since the bleeding was irregular and heavy at the time it is now very light she is not experiencing any severe pain just a little bit. She is awaiting evaluation and an appointment at [facility] oncology to evaluate the 10 cm ovarian cyst. Referral was requested a couple of weeks ago. She now has an appointment she says on November 28 at [facility]. In the meantime she has ordered a chest x-ray cat scan with oral and IV contrast and needs blood work before the CAT scan. She has not gone the blood work yet I asked her to go today. I also asked her to get the lab work done at the hospital we are providing her a letter to excuse her from work from September 19 until the completion of her evaluation and treatment at [facility]. In addition if she needs anything else I recommend she speak with her primary care provider. I again explained that these tests are partly to check on her kidneys before she has the CAT scan with the contrast but also they are checking for different kinds of tumor markers to check for the possibility of cancer. Discussed that I will not be evaluating these labs and CAT scans that these are for [facility] and they will be explaining her to her the results as I am not an oncologist. She is going to go get the lab work today I asked her to call our office tomorrow if she has not heard about the appointment for chest x-ray and CAT scan so that she can check on it then. [facility] Medical History Abnormal uterine bleeding Carpal tunnel syndrome on both sides Kidney stone History of irregular menstrual cycles Hx of abnormal cervical Pap smear Left breast lump Surgical History History of foot surgery History of section History of tubal ligation Family History Father Lupus Arthritis Mother Hypertension Sister Ovarian cancer SLE (systemic lupus erythematosus related syndrome) Sister Hypoglycemia Paternal Grandfather Lung cancer Social History Household Members: Spouse and Children Household Members Other:: 3 kids Housing: Apartment Are you a primary child care giver to a significant other at home: No Do you presently have visiting nurse or other home services: No Alcohol intake: current Alcohol intake frequency: does not drink Alcohol type: wine Patient Tobacco Use Status: Never used Tobacco e-Cigarette/Vaping Use: Never Used Second Hand Smoke Exposure: No service: No Current occupational status: employed 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 Assessment & Plan Assessment & Plan (1) Menorrhagia: Code(s): N92.0 - Excessive and frequent menstruation with regular cycle Category: Medical (2) Ovarian cyst: Code(s): N83.209 - Unspecified ovarian cyst, unspecified side Category: Medical (3) Abnormal uterine bleeding: Code(s): N93.9 - Abnormal uterine and vaginal bleeding, unspecified Category: Medical Plan Because she is requesting a letter to say that she can not work until she has everything evaluated and treated she stopped work because of the heavy bleeding on September 19 of this year. And she has not been able to work since the bleeding was irregular and heavy at the time it is now very light she is not experiencing any severe pain just a little bit. She is awaiting evaluation and an appointment at [facility] oncology to evaluate the 10 cm ovarian cyst. Referral was requested a couple of weeks ago. She now has an appointment she says on November 28 at [facility]. In the meantime she has ordered a chest x-ray cat scan with oral and IV contrast and needs blood work before the CAT scan. She has not gone the blood work yet I asked her to go today. I also asked her to get the lab work done at the hospital we are providing her a letter to excuse her from work from September 19 until the completion of her evaluation and treatment at [facility]. In addition if she needs anything else I recommend she speak with her primary care provider. I again explained that these tests are partly to check on her kidneys before she has the CAT scan with the contrast but also they are checking for different kinds of tumor markers to check for the possibility of cancer. Discussed that I will not be evaluating these labs and CAT scans that these are for [facility] and they will be explaining her to her the results as I am not an oncologist. She is going to go get the lab work today I asked her to call our office tomorrow if she has not heard about the appointment for chest x-ray and CAT scan so that she can check on it then. Patient given letter to excuse her from work from 09/19 through the completion of her evaluation and Patient to go get her lab work today which was ordered on 11/15 Chest x-ray and CT scan are pending Patient has been referred to [facility] with had an appointment at oncology 428 Coding Level of Care Code Est Pt Level 3 (43978) Diagnoses Menorrhagia N92.0 Ovarian cyst N83.209 Abnormal uterine bleeding N93.9
== END 2024-11-17 09:53 | disposition home or self-care (01) ==
LOC: HO.HWSM 09:23
PROVIDERS: PCP Internal Medicine; Visit Provider Advanced Practice Midwife
DX: N92.0 Excessive and frequent menstruation with regular cycle (principal); N83.209 Unspecified ovarian cyst, unspecified side; N93.9 Abnormal uterine and vaginal bleeding, unspecified
CPT/HCPCS: 99213

== ENCOUNTER → 2024-11-17 10:22 | Outpatient (BNV) | payer OTHER, SELFPAY | PROVIDERS: PCP Internal Medicine; Visit Provider Radiology Diagnostic Radiology | DX: N93.9 Abnormal uterine and vaginal bleeding, unspecified (principal) | CPT/HCPCS: 74018 ==

== ENCOUNTER 2024-12-16 06:53 | Outpatient (REF) | payer OTHER, SELFPAY | END 2024-12-16 06:54 | disposition home or self-care (01) | LOC: HO.CT 06:53 | PROVIDERS: PCP Internal Medicine; Visit Provider Advanced Practice Midwife | DX: Z13.89 Encounter for screening for other disorder (principal) ==

== ENCOUNTER 2024-12-22 01:43 | Emergency (ER) | payer OTHER, SELFPAY ==
--- NOTE | 2024-12-22 | ECG_ITS ---
Test Reason : TACHYCARDIA Blood Pressure : */* mmHG Vent. Rate : 113 BPM Atrial Rate : 113 BPM P-R Int : 136 ms QRS Dur : 78 ms QT Int : 320 ms P-R-T Axes : 66 31 33 degrees QTcB Int : 438 ms Sinus tachycardia Nonspecific ST and T wave abnormality Abnormal ECG When compared with ECG of 16-Mar-2023 00:10, No significant change was found Referred By: Generic ED Physician Electronically Signed By: Daniel Mcgowan
--- NOTE | ~2024-12-22 | CT_ITS ---
CLINICAL HISTORY: periumbillical pain, known 10cm r ovarian mass CT abdomen and pelvis with contrast Comparison: US/SR - US PELVIC AND TRANSVAGINAL - 10/19/24 15:47 EDT Findings: There is hepatic steatosis. There is mild hepatomegaly. The gallbladder, pancreas, spleen, and adrenal glands are unremarkable. There is a small right renal cyst. Left kidney is unremarkable. The appendix is dilated measuring up to 15 mm. There is periappendiceal fat stranding and small amount of ill-defined fluid. There is no evidence of an abscess. The remainder of the gastrointestinal tract is unremarkable. There is a large ovarian cyst in the midline of the pelvis measuring 10.2 x 8.8 cm not appreciably changed from the prior ultrasound. There is a 2nd right ovarian cyst/follicle along the inferior margin of the large cyst measuring 3.4 cm. There is endometrial thickening similar to the prior ultrasound. There are no enlarged lymph nodes. The aorta and IVC are normal. There is no fracture or suspicious lytic or sclerotic lesion. IMPRESSION: 1. Acute appendicitis. 2. Large ovarian cyst measuring up to 10.2 cm stable from the prior ultrasound. 3. Endometrial thickening similar to the prior ultrasound. 4. Hepatic steatosis and mild hepatomegaly. This document has been electronically signed by: Sixto Shepherd MD on 12/22/2024 04:37:49
[2024-12-22 01:49] VITALS: BP 138/88; PULSE 119; RESP 18; TEMP 37.2; O2SAT 100; BMI 35.5
--- NOTE | 2024-12-22 02:06 | ED.ABDPAIN ---
HPI - Abdominal Pain General Chief Complaint: Abdominal Pain Stated Complaint: abd pain Time Seen by Provider: 12/22/24 01:53 Source: patient Mode of arrival: ambulatory Limitations: no limitations History of Present Illness ED Provider: Dr. Dora Frye HPI narrative: Patient comes to the emergency room complaining of epigastric and periumbilical pain since yesterday, complaining of nausea and vomiting, complaining of dysuria. Patient states that she has chronic vaginal bleeding for the last 7 months. Patient known to have a large 10 cm ovarian cyst, patient states she is scheduled for a total hysterectomy next month. Patient denies flank pain or back pain. Denies fever chills Related Data Previous Rx's ?Medication ?Instructions ?Recorded blood pressure test kit-large #1 ea 10/09/22 pregabalin 75 mg capsule (Lyrica) 75 mg PO BID #60 caps 03/01/24 mirtazapine 7.5 mg tablet 7.5 mg PO BEDTIME #30 tabs 03/02/24 naproxen 500 mg tablet 500 mg PO BID PRN for pain #60 tabs 04/08/24 atenolol 25 mg tablet 25 mg PO DAILY #90 tabs 07/26/24 omeprazole 40 mg capsule,delayed 40 mg PO QAM #90 caps 08/26/24 release cetirizine 10 mg tablet (Zyrtec) 10 mg PO DAILY #90 tabs 11/29/24 Allergies Allergy/AdvReac Type Severity Reaction Status Date / Time aspirin [ASPIRIN] Allergy Mild BRUISES, Verified 12/22/24 01:50 rash penicillin G Allergy Mild Hives Verified 12/22/24 01:50 Review of Systems Review of Systems Constitutional : No Weight loss, No Fever, No Chills, No Night Sweats, No Fatigue, No Malaise ENT/Mouth : No Hearing loss, No Ear Pain, No Nasal Congestion, No Sinus Pain, No Hoarseness, No sore throat, No Rhinorrhea, No Swallowing Difficulty Eyes: No Eye Pain, No Swelling, No Redness, No Foreign Body, No Discharge, No Vision Changes Cardiovascular : No Chest Pain, No SOB, No Dyspnea on Exertion, No Orthopnea, No Edema, No Palpitations Respiratory : No Cough, No Sputum, No Wheezing, No Smoke Exposure, No Dyspnea Gastrointestinal : No Nausea, No Vomiting, No Diarrhea, No Constipation, No abdominal Pain, No Hematochezia, No Melena Genitourinary : Complaining of 7 months of vaginal bleeding which has been addressed by OBGYN, total hysterectomy pending, complaining of Dysuria, No Urinary Frequency, unclear if patient has vaginal bleeding versus Hematuria, No Urinary Incontinence, No Urgency, No Flank Pain, No Urinary Flow Changes, No Hesitancy Musculoskeletal : No joint pain, No Myalgias, No Joint Swelling Skin : No Skin Lesions, No rash Neuro : No Weakness, No Numbness, No Paresthesias, No Loss of Consciousness, No Dizziness, No Headache Psych : No Anxiety/Panic, No Depression, No SI/HI/AH/VH, No Social Issues, Heme/Lymph: No Bruising, No Bleeding,No Lymphadenopathy Endocrine : No Polyuria, No Polydipsia, No Temperature Intolerance [facility] Past Medical History Medical History Abnormal uterine bleeding Carpal tunnel syndrome on both sides Kidney stone History of irregular menstrual cycles Hx of abnormal cervical Pap smear Left breast lump Surgical History History of foot surgery History of section History of tubal ligation Family History Family History Father Lupus Arthritis Mother Hypertension Sister Ovarian cancer SLE (systemic lupus erythematosus related syndrome) Sister Hypoglycemia Paternal Grandfather Lung cancer Social History Social History Household Members: Spouse and Children Household Members Other:: 3 kids Housing: Apartment Are you a primary rehab care assistant to a significant other at home: No Do you presently have visiting nurse or other home services: No Alcohol intake: current Alcohol intake frequency: does not drink Alcohol type: wine Patient Tobacco Use Status: Never used Tobacco e-Cigarette/Vaping Use: Never Used Second Hand Smoke Exposure: No Advance Directives: No Advance Directives Information Provided: Yes Do you have a plan to hurt others: No Plan service: No Current occupational status: employed 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 Oriented X3. No acute distress. Eyes: Pupils equal, round and reactive to light. ENT: Pharynx normal. Neck: Normal inspection. Neck supple. No lymph nodes noted. No crepitus CVS: Normal heart rate and rhythm. Pulses normal. Normal S1 and S2 Respiratory: No respiratory distress. Breath sounds normal. No Wheezing. No rales Abdomen: Soft , moderate pain to palpation in the epigastric and periumbilical area, also moderate discomfort to palpation in bilateral lower quadrants, no rebound or guarding, no rigidity. No distention. Skin: Skin warm and dry. Normal skin color. Normal skin turgor. Extremities: No lower extremity edema. No Lacerations. No Rash Neuro: Oriented X 3. No motor deficit. No sensory deficit. Moving all extremities. No slurred speech. CN 2 through 12 grossly intact Psych: calm, cooperative, normal affect Course Course Course Narrative: Patient states that she has chronic bilateral lower quadrant discomfort, known to have bilateral cysts, biggest 10 cm in the right side, chronic vaginal bleeding for 7+ months. Patient has a total hysterectomy planed in a month All of patient's labs and CT scan pending Patient receiving IV fluids, Zofran and morphine Medical Decision Making Medical Decision Making [facility] Narrative: My interpretation of EKG: Normal sinus rhythm, heart rate 113, no ST segment depression or elevation, no T-wave inversion, QTC 438 My interpretation of labs: Patient's white blood cell count 22.2, hemoglobin 10.9, hematocrit 31.9, platelets 256. Normal chemistry LFTs and lipase. Urinalysis contaminated specimen, mild dysuria intermittently. No flank pain or fever chills. CT scan: Acute appendicitis along with known large ovarian cysts Patient receiving metronidazole and ceftriaxone, patient states she is allergic to all penicillins I discussed the above-mentioned with Dr. Baumann. Recommendations: Called [facility] to see if the appendectomy and total hysterectomy can not be done all at the same time rather than submitting the patient to 2 different surgeries I discussed the patient with Dr. Hawthorne from [facility], we will transfer the patient from ED to ED. Once the patient gets there, they will also consult OBGYN and then they will determine if the 2 surgeries can be done at once I discussed the above-mentioned with the patient, patient agrees with plan Differential Diagnosis Differential Diagnoses: The differential diagnosis associated with the presentation includes (Ruptured ovarian cyst, appendicitis) Admission/Observation Consideration of admission/observation: Escalation of care including admission/observation considered Patient needs admission versus transfer Consult Healthcare Provider Management of the patient was discussed with: [employer] Lab Data [facility] Lab Attestation statement: I reviewed the patient's lab results. 12/22/24 02:13 12/22/24 02:13 Labs: Lab Results 12/22/24 Range/Units 02:13 WBC 22.2 H (4.8-10.8) X10*3/uL RBC 4.01 L (4.20-5.50) X10*6/uL Hgb 10.9 L (12.0-16.0) g/dl Hct 31.9 L (37.0-47.0) % MCV 79.6 L (80.0-98.0) fL MCH 27.2 (27.0-33.0) pg MCHC 34.2 (31.0-35.0) g/dl RDW 13.6 (11.0-16.0) % Plt Count 256 (160-400) X10*3/uL MPV 9.2 L (9.4-12.3) fL Immature Gran % (Auto) 0.5 H (0.0-0.4) % Neut % (Auto) 84.1 H (45-73) % Lymph % (Auto) 7.2 L (20-40) % [place] % (Auto) 8.0 (2-11) % Eos % (Auto) 0.0 (0-4) % Baso % (Auto) 0.2 (0-2) % Lymph # (Auto) 1.6 (1.2-4.9) X10*3/uL Grayson # (Auto) 1.8 H (0.1-1.2) X10*3/uL Eos # (Auto) 0.0 (0.0-0.4) X10*3/uL Baso # (Auto) 0.1 (0.0-0.2) X10*3/uL Abs Immat Gran (auto) 0.12 H (0.00-0.03) X10*3/uL Absolute Neuts (auto) 18.6 H (2.0-8.3) x10*3/uL Absolute Nucleated RBC 0.000 (0.0-0.012) X10*3/uL Nucleated RBC % (auto) 0.0 (0.0-0.2) /100WBC Smear Tech's Comments VERIFIED Sodium 139 (135-145) mmol/L Potassium 4.1 (3.3-5.1) mmol/L Chloride 105 (96-108) mmol/L Carbon Dioxide 21 L (22-29) mmol/L Anion Gap 17 (12-20) BUN 9 (9-16) mg/dL Creatinine 0.67 (0.5-1.4) mg/dL Estim Creat Clear Calc 97.8 Estimated GFR > 60 Random Glucose 126 H (60-115) mg/dL Calcium 8.9 (8.4-10.2) mg/dL Total Bilirubin 0.5 (0.0-1.0) mg/dL Direct Bilirubin 0.2 (0.0-0.5) mg/dL AST 19 (5-31) U/L ALT 18 (0-31) U/L Alkaline Phosphatase 104 (39-117) U/L Total Protein 7.1 (6.5-8.0) g/dL Albumin 4.1 (3.5-5.0) g/dL Lipase 8 (8-78) U/L Beta HCG, Quant < 2 mIU/mL Urine Color Dark Yellow Urine Appearance Cloudy Urine pH 5.5 (5.0-9.0) Ur Specific [place] >= 1.030 H (1.005-1.025) Urine Protein 30 (1+) H (Neg-Trace) mg/dL Urine Glucose (UA) Negative (Negative) mg/dL Urine Ketones Trace (Negative) mg/dL Urine Blood Large (3+) H (Negative) Urine Nitrite Negative (Negative) Ur Leukocyte Esterase Small (1+) H (Negative) Urine RBC >20 H (0-2) /HPF Urine WBC 6-10 (0-5) /HPF Ur Squamous Epith Cells >20 (0-2) /HPF Urine Bacteria 2+ (None Seen) Hyaline Casts 6-10 (0-2) /LPF Independent Interpretation I performed an independent interpretation of an: CT Scan Radiology Impression Discussion of test interpretation with radiology: I have reviewed the radiologist's reading. Radiologist Impression: There is hepatic steatosis. There is mild hepatomegaly. The gallbladder, pancreas, spleen, and adrenal glands are unremarkable. There is a small right renal cyst. Left kidney is unremarkable. The appendix is dilated measuring up to 15 mm. There is periappendiceal fat stranding and small amount of ill-defined fluid. There is no evidence of an abscess. The remainder of the gastrointestinal tract is unremarkable. There is a large ovarian cyst in the midline of the pelvis measuring 10.2 x 8.8 cm not appreciably changed from the prior ultrasound. There is a 2nd right ovarian cyst/follicle along the inferior margin of the large cyst measuring 3.4 cm. There is endometrial thickening similar to the prior ultrasound. There are no enlarged lymph nodes. The aorta and IVC are normal. There is no fracture or suspicious lytic or sclerotic lesion. IMPRESSION: 1. Acute appendicitis. 2. Large ovarian cyst measuring up to 10.2 cm stable from the prior ultrasound. 3. Endometrial thickening similar to the prior ultrasound. 4. Hepatic steatosis and mild hepatomegaly Medications Administered Discontinued Medications Generic Name Dose Route Start Last Admin Trade Name Freq PRN Reason Stop Dose Admin Sodium Chloride 1,000 mls @ 999 mls/hr 12/22/24 02:09 12/22/24 03:24 Ns IVCONT 12/22/24 03:09 Infused .Q1H1M ONE Infusion Iohexol 85 ml 12/22/24 03:03 12/22/24 03:04 Iohexol 350 Mg/Ml 100 Ml Infus..Btl IV 12/22/24 03:04 85 ml ONCE ONE Administration Morphine Sulfate 2 mg 12/22/24 02:09 12/22/24 02:27 Morphine Sulfate 2 Mg/Ml Cartridge IVPUSH 12/22/24 02:10 2 mg ONCE ONE Administration Protocol Ondansetron HCl 4 mg 12/22/24 02:09 12/22/24 02:27 Ondansetron Hcl 4 Mg/2 Ml Vial IVPUSH 12/22/24 02:10 4 mg ONCE ONE Administration Critical Care Time Critical Care Time Critical Care Time: Yes Total Critical Care Time: 60 Attestation: I have personally provided critical care time. Time includes review of lab data, radiology results, discussion with consultants, and monitoring for potential decompensation. Intervention performed as documented. Discharge Plan Discharge Clinical Impression: Acute appendicitis, Ovarian cyst Patient Disposition: [facility] Transfer Details: [facility], ED to ED, Dr. Hawthorne from surgery Prescriptions: No Action mirtazapine 7.5 mg tablet 7.5 mg PO BEDTIME Qty: 30 0RF naproxen 500 mg tablet 500 mg PO BID PRN (Reason: for pain) Qty: 60 0RF omeprazole 40 mg capsule,delayed release(DR/EC) 40 mg PO QAM Qty: 90 0RF cetirizine [Zyrtec] 10 mg tablet 10 mg PO DAILY Qty: 90 2RF pregabalin [Lyrica] 75 mg capsule 75 mg PO BID Qty: 60 3RF (DME) blood pressure test kit-large Kit See Rx Instructions .ROUTE .MEDSUPPLY Qty: 1 0RF Rx Instructions: As directed atenolol 25 mg tablet 25 mg PO DAILY Qty: 90 3RF Print Language: Lithuanian
[2024-12-22 02:20] LABS: Basophils Absolute Auto 0.1 X10*3/uL (0.0-0.2); Basophils Percent Auto 0.2 % (0-2); Hematocrit 31.9 % (37.0-47.0); Hemoglobin 10.9 g/dl (12.0-16.0); Imm Gran Abs Auto 0.12 X10*3/uL (0.00-0.03); Imm Gran Pct Auto 0.5 % (0.0-0.4); Lymphocytes Absolute Auto 1.6 X10*3/uL (1.2-4.9); Lymphocytes Percent Auto 7.2 % (20-40); MANUAL DIFF FLAG SCAN; Mean Corpuscular HGB Conc 34.2 g/dl (31.0-35.0); Mean Corpuscular Hemoglobin 27.2 pg (27.0-33.0); Mean Corpuscular Volume 79.6 fL (80.0-98.0); Mean Platelet Volume 9.2 fL (9.4-12.3); Monocytes Absolute Auto 1.8 X10*3/uL (0.1-1.2); Neutrophils Absolute Auto 18.6 x10*3/uL (2.0-8.3); Neutrophils Percent Auto 84.1 % (45-73); Platelet Count 256 X10*3/uL (160-400); Red Blood Count 4.01 X10*6/uL (4.20-5.50); Red Cell Distribution Width 13.6 % (11.0-16.0); SCAN SMEAR FLAG 1; White Blood Count 22.2 X10*3/uL (4.8-10.8)
[2024-12-22 02:23] LABS: Appearance Urine Cloudy; Color Urine Dark Yellow; Glucose Urine UA Negative (Negative); Leukocyte Esterase Urine Small (1+) (Negative); Nitrite Urine Negative (Negative); PH 5.5 (5.0-9.0); Specific Gravity - Urine >= 1.030 (1.005-1.025); UMIC TRIGGER UACC YES; Urine Blood Large (3+) (Negative); Urine Ketones Trace mg/dL (Negative); Urine Protein 30 (1+) mg/dL (Neg-Trace)
[2024-12-22] MEDS: 0.9 % Sodium Chloride 1,000 ML 999 ML IVCONT (02:24)
[2024-12-22] MEDS: ondansetron HCL 4 MG/2 ML VIAL IVPUSH (02:27)
[2024-12-22] MEDS: Morphine Sulfate 2 MG/ML CARTRIDGE IVPUSH (02:27)
[2024-12-22 02:34] LABS: Bacteria Urine 2+ (None Seen); RBC Urine >20 /HPF (0-2); Squamous Epithelial Cell Urine >20 /HPF (0-2); UACC Culture Trigger YES
[2024-12-22 02:39] LABS: SLIDE REVIEW VERIFIED
[2024-12-22 02:55] LABS: Alanine Aminotransferase 18 U/L (0-31); Albumin Level 4.1 g/dL (3.5-5.0); Alkaline Phosphatase 104 U/L (39-117); Anion Gap 17 (12-20); Aspartate Amino Transferase 19 U/L (5-31); Bilirubin Direct 0.2 mg/dL (0.0-0.5); Bilirubin Total 0.5 mg/dL (0.0-1.0); Blood Urea Nitrogen 9 mg/dL (9-16); Calcium 8.9 mg/dL (8.4-10.2); Carbon Dioxide 21 mmol/L (22-29); Chloride 105 mmol/L (96-108); Creatinine Clr Calc Pharmacy 97.8; Estimated Glomerular Filt Rate > 60; Glucose Random 126 mg/dL (60-115); HCG Quantitative < 2 mIU/mL; Lipase 8 U/L (8-78); Potassium 4.1 mmol/L (3.3-5.1); Sodium 139 mmol/L (135-145); Total Protein 7.1 g/dL (6.5-8.0)
[2024-12-22] MEDS: iohexoL 350 MG/ML 100 ML INFUS..BTL 85 ML IV (03:04)
[2024-12-22 05:06] VITALS: BP 110/54; PULSE 121; RESP 16; TEMP 37.2; O2SAT 100
[2024-12-22] MEDS: metroNIDAZOLE/NS 500 MG/100 ML PIGGYBACK 100 MG IV (05:15)
[2024-12-22] MEDS: cefTRIAXone sodium 1 GM VIAL IVPUSH (05:15)
[2024-12-22 05:33] LABS: Lactic Acid 1.4 mmol/L (0.5-2.0)
[2024-12-22 06:40] VITALS: BP 106/46; PULSE 120; RESP 20; TEMP 37.3; O2SAT 96
[2024-12-22 06:46] VITALS: BP 106/46; PULSE 120; RESP 20; TEMP 37.3; O2SAT 96
--- NOTE | 2024-12-22 06:51 | PC.NURSE ---
Pt loaded onto ambulance stretcher for transport to [facility] ED. Report given to ambulance personnel. Attempted to call report to [facility] ED at 0650 however no answer.
== END 2024-12-22 06:51 | disposition short-term general hospital (02) ==
PROVIDERS: Emergency Provider Emergency Medicine; PCP Internal Medicine
DX: K35.80 Unspecified acute appendicitis (principal); N83.201 Unspecified ovarian cyst, right side; R10.33 Periumbilical pain; R11.2 Nausea with vomiting, unspecified; N93.8 Other specified abnormal uterine and vaginal bleeding; Z79.899 Other long term (current) drug therapy
CPT/HCPCS: 36415; 74177; 80053; 81001; 82248; 83605; 83690; 84702; 85025; 87040; 87086; 87147; 93005; 96361; 96365; 96375; 99285; J0696; J1836; J2270; J2405; Q9967

== ENCOUNTER → 2024-12-22 02:03 | Outpatient (BNV) | payer OTHER, SELFPAY | PROVIDERS: Emergency Provider Emergency Medicine; PCP Internal Medicine; Visit Provider Radiology Diagnostic Radiology | DX: K35.80 Unspecified acute appendicitis (principal); N83.201 Unspecified ovarian cyst, right side; N85.00 Endometrial hyperplasia, unspecified; K76.0 Fatty (change of) liver, not elsewhere classified | CPT/HCPCS: 74177 ==

== ENCOUNTER → 2024-12-22 02:08 | Outpatient (BNV) | payer OTHER, SELFPAY | PROVIDERS: Emergency Provider Emergency Medicine; PCP Internal Medicine; Visit Provider Internal Medicine Cardiovascular Disease | DX: R00.0 Tachycardia, unspecified (principal) | CPT/HCPCS: 93010 ==

== ENCOUNTER 2025-01-14 16:49 | Outpatient (REF) | payer OTHER, SELFPAY | END 2025-01-14 16:50 | disposition home or self-care (01) | LOC: HO.MRI 16:49 | PROVIDERS: PCP Internal Medicine; Visit Provider Advanced Practice Midwife | DX: Z13.89 Encounter for screening for other disorder (principal) ==

== ENCOUNTER 2025-02-08 08:48 | Outpatient (REF) | payer OTHER, SELFPAY ==
[2025-02-08 15:59] LABS: MANUAL DIFF FLAG NO
[2025-02-08 16:20] LABS: Hematocrit 34.9 % (37.0-47.0); Hemoglobin 11.3 g/dl (12.0-16.0); Imm Gran Abs Auto 0.06 X10*3/uL (0.00-0.03); Imm Gran Pct Auto 0.6 % (0.0-0.4); Lymphocytes Absolute Auto 2.3 X10*3/uL (1.2-4.9); Mean Corpuscular HGB Conc 32.4 g/dl (31.0-35.0); Mean Corpuscular Hemoglobin 26.3 pg (27.0-33.0); Mean Corpuscular Volume 81.4 fL (80.0-98.0); NRBC Abs Auto 0.000 X10*3/uL (0.0-0.012); NRBC Pct Auto 0.0 /100WBC (0.0-0.2); Platelet Count 305 X10*3/uL (160-400); Red Blood Count 4.29 X10*6/uL (4.20-5.50); White Blood Count 9.4 X10*3/uL (4.8-10.8)
[2025-02-08 16:42] LABS: Iron 55 mcg/dL (30-160); Percent Iron Saturation 15 % (15-50); Total Iron Binding Capacity 355 mcg/dL (228-428); Unsaturated Iron Binding 300 ug/dL
== END 2025-02-08 08:49 | disposition home or self-care (01) ==
LOC: HO.HMGCLDS 08:48
PROVIDERS: PCP Internal Medicine; Visit Provider Internal Medicine
DX: N93.9 Abnormal uterine and vaginal bleeding, unspecified (principal); D50.0 Iron deficiency anemia secondary to blood loss (chronic); N92.1 Excessive and frequent menstruation with irregular cycle; R53.83 Other fatigue; N83.201 Unspecified ovarian cyst, right side; N83.202 Unspecified ovarian cyst, left side; R00.2 Palpitations
CPT/HCPCS: 36415; 83540; 84443; 85025; 99212

== ENCOUNTER 2025-02-08 08:48 | Outpatient (AMB) | payer OTHER, SELFPAY ==
--- OUTSIDE RECORDS SUMMARY | 2025-02-03 23:59 | XMS_ITS | Continuity of Care Document ---
Author Organization [facility] Address [address] [place] [address] [address] [place] [address]- Care Team Providers Care Education Specialist Name Role Phone River BANGURA, Melly De La Paz Primary Care Physician Encounter [facility] Date(s): 01/04/25 - 02/03/[address] [place], [place] [address] Attending Physician: AdmToney monsalve Admitting Physician: AdmtrToney Referring Physician: Admtr, [id number] Encounter Type: Triage Allergies, Adverse Reactions, Alerts Substance Criticality Severity Reaction Reaction Severity Status penicillin Active aspirin Bruising Active Medications acetaminophen 325 mg oral capsule 1 capsule = 325 mg, By Mouth, Every 4 hours, PRN Pain , Mild, # 20 capsule, 0 Refills, Acute 12/23/25 7:32:00 AM EDT, 12/23/24 7:32:00 AM EDT, Capsule, [facility], Partial fill upon patient request if the prescription is for a schedule II opioid drug., 145, cm, 12/23/24 6:11:00 EDT, Height, 75, kg, 12/22/24 12:13:00 EDT, Dry Weight Start Date: 12/23/24 Stop Date: 12/23/25 Status: Ordered Quantity: 20.0 Unit: capsule Repeat number: 1 atenolol 25 mg oral tablet TOME 1 TABLETA POR V A ORAL TODOS LOS D Start Date: 12/13/24 Status: Ordered Repeat number: 1 cetirizine 10 mg oral tablet 1 tablet = 10 mg, By Mouth, Daily, PRN for allergy symptoms, # 10 tablet, 0 Refills, Maintenance, 12/13/24 9:11:00 AM EDT, Tablet, Partial fill upon patient request if the prescription is for a schedule II opioid drug. Start Date: 12/13/24 Status: Ordered Quantity: 10.0 Unit: tablet Repeat number: 1 Dulcolax 5 mg oral enteric coated tablet 4 tablet = 20 mg, By Mouth, Once, take as directed, # 4 tablet, 0 Refills, Soft Stop, 01/31/25 1:54:00 PM EDT, [facility][id number], Partial fill upon patient request if the prescription is for a schedule II opioid drug., 145, cm, 01/31/25 11:45:00 EDT, Height, 73.5, kg, 01/31/25 11:45:00 EDT, Dry Weight Start Date: 01/31/25 Status: Ordered Quantity: 4.0 Unit: tablet Repeat number: 1 MiraLax oral powder for reconstitution = 17 Gm, By Mouth, Daily, take as directed, # 238 Gm, 0 Refills, Maintenance, 01/31/25 1:54:00 PM EDT, REC Powder, [facility]/pharmacy #[id number], Partial fill upon patient request if the prescription is for a schedule II opioid drug., 17 Gm By Mouth Daily,Instr:take as directed, 145, cm, 01/31/25 11:45:00 EDT, Height, 73.5, kg, 01/31/25 11:45:00 EDT, Dry Weight Start Date: 01/31/25 Status: Ordered Quantity: 238.0 Unit: g Repeat number: 1 omeprazole 40 mg oral enteric coated capsule 0 Refills, Maintenance, 12/13/24 9:11:00 AM EDT, Partial fill upon patient request if the prescription is for a schedule II opioid drug. Start Date: 12/13/24 Status: Ordered Repeat number: 1 oxyCODONE 5 mg oral tablet 5 mg, 1, tablet, By Mouth, Every 6 hours, PRN, # 10 tablet, Refills 0, Tot. Refills 0, Acute 12/23/25 7:35:00 AM EDT, as needed for pain, 12/23/24 7:32:00 AM EDT, Route to Pharmacy Electronically, [facility], Partial fill upon patient request if the prescription is for a schedule II opioid drug., 145, cm, 12/23/24 6:11:00 EDT, Height, 75, kg, 12/22/24 12:13:00 EDT, Dry Weight Start Date: 12/23/24 Stop Date: 12/23/25 Status: Ordered Quantity: 10.0 Unit: tablet Repeat number: 1 Problem List Condition Confirmation Course Effective Dates Status Health St atus Informant Abnormal cervical Papanicolaou smear Confirmed Active Abnormal uterine bleeding (AUB) Confirmed Active Left breast lump Confirmed Active Carpal tunnel syndrome Confirmed Active Ovarian cyst Confirmed Active Kidney stone Confirmed Active Uses Uzbek as primary spoken language Confirmed Active Obese class I Confirmed Active Social History Social History Type Response Smoking Status Never (less than 100 in lifetime);Former smoker, quit more than 30 days ago; Other: Quit 13 years ago; entered on: 12/13/24 Sex Sex Representation Female (finding) Patient Care team information Care Team Personnel Name: River BANGURA , Melly De La Paz Position: Reference Physician Member Role: PCP Address: [facility] [address] Telecom: Care Team Related Persons Name: FREDRICK SILVA Insurance Providers Guarantor name: [employer] Health Plan Information #: 1 Payer: [employer] Payer Identifier: ROSALIA Member Number: [id number] Group Number: ROSALIA Subscriber Identifier: [id number] Relationship to Subscriber: self Coverage Type: NA Coverage Verification Date: ROSALIA Telecom: ROSALIA Address:
[2025-02-08 08:59] VITALS: BP 126/82; PULSE 82; RESP 16; TEMP 36.7; O2SAT 99; BMI 34.8
--- NOTE | 2025-02-08 08:59 | MHC.PC.OV ---
Vital Signs 02/08/25 08:59 Height 4 ft 9 in Weight 161 lb BMI 34.8 BP 126/82 Blood Pressure Location Lt brachial Position Sitting Respiration 16 Pulse 82 Pulse Source Pulse Oximeter Temp 98.0 F Temp Source Oral Pulse Oximetry (%) 99 Oxygen Delivery Method Room Air Intake Visit Reasons: palpitations/referral to cardiology Intake Note: Pt is here today to discuss referral to cardiology having palpitations Exercise Physiology Professor Required: Yes Exercise Physiology Professor Name: Neel ID [id number] Allergies aspirin (ASPIRIN) Allergy (Mild, Verified 02/08/25 09:10) BRUISES, rash penicillin G Allergy (Mild, Verified 02/08/25 09:10) Hives Medication List - Last Reconciled 02/08/25 by Melly Holman MD atenolol 25 mg PO DAILY blood pressure test kit-large As directed cetirizine (Zyrtec) 10 mg PO DAILY mirtazapine 7.5 mg PO BEDTIME naproxen 500 mg PO BID PRN omeprazole 40 mg PO QAM pregabalin (Lyrica) 75 mg PO BID Tobacco use date assessed: 02/08/25 Dental Screening Dental Screen Date: 02/08/25 Did you have a dental visit in the last 12 months?: Yes Did you have a dental problem in the last 6 months where you did not have access to dental care?: No Was dental information given to patient?: Patient has dentist HPI palpitations/referral to cardiology HPI Details 4-year-old lady here today complaining of having intermittent palpitations accompanied by intermittent episodes of dizziness especially on change in position and occasional shortness of breath on exertion.. Has history of abnormal uterine bleeding with last CBC showing hemoglobin of 10.9 and hematocrit at 31.9 on CBC done 12/22/2024. CT of abdomen and pelvis done December 2024 showed presence of a large ovarian cyst in the midline of the pelvis measuring 10.2 x 8.8 cm not appreciably changed from the prior ultrasound. There is a 2nd right ovarian cyst/follicle along the inferior margin of the large cyst measuring 3.4 cm. There is endometrial thickening similar to the prior ultrasound. There are no enlarged lymph nodes. The aorta and IVC are normal. She has not been started on any iron supplements during her last admission She has been seen by OBGYN 01/31/2025 at [facility] and results were discussed with patient recommended to do bilateral ovarian cystectomy and D&C with hysteroscopy on 02/27/2025 [facility] Medical History Intermittent palpitations Anemia Bilateral ovarian cysts Abnormal uterine bleeding Carpal tunnel syndrome on both sides Kidney stone History of irregular menstrual cycles Hx of abnormal cervical Pap smear Left breast lump Surgical History History of foot surgery History of section History of tubal ligation Family History Father Lupus Arthritis Mother Hypertension Sister Ovarian cancer SLE (systemic lupus erythematosus related syndrome) Sister Hypoglycemia Paternal Grandfather Lung cancer Social History Household Members: Spouse and Children Household Members Other:: 3 kids Housing: Apartment Are you a primary career coordinator to a significant other at home: No Do you presently have visiting nurse or other home services: No Alcohol intake: current Alcohol intake frequency: does not drink Alcohol type: wine Patient Tobacco Use Status: Never used Tobacco e-Cigarette/Vaping Use: Never Used Second Hand Smoke Exposure: No service: No Current occupational status: employed 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 Serafin Land, Marimar Eric, Catarino Valenzuela and colleagues, with an educational sailaja from [employer]. Review of Systems Const Reports as per HPI, Denies fatigue, Denies headache(s) and Denies weakness Eyes Reports no additional complaints ENT Denies headache(s) Card Reports as per HPI and Denies chest pain Resp Denies chest congestion, Denies cough and Denies wheezing GI Denies abdominal pain, Denies change in bowel habits and Denies heartburn Reports abnormal vaginal bleeding, Reports metrorrhagia, Denies hematuria, Denies urinary frequency, Denies dysuria and Denies urinary urgency Musc Reports no additional complaints Skin/Breast Denies breast pain, Denies breast mass, Denies lesions and Denies rash Neuro Reports as per HPI, Denies headache(s) and Denies weakness Psych Reports no additional complaints Endo Denies fatigue, Denies polydipsia and Denies polyuria Alejandro/Lymph Reports as per HPI and Denies easy bruising Aller/Immun Denies seasonal rhinorrhea and Denies wheezing Physical exam (Primary Care) Vital Signs: Last Vital Signs Temp 98.0 F 02/08/25 08:59 Pulse 82 02/08/25 08:59 Resp 16 02/08/25 08:59 BP 126/82 02/08/25 08:59 Pulse Ox 99 02/08/25 08:59 Oxygen Delivery Method Room Air 02/08/25 08:59 BMI result Body Mass Index 34.8 Tobacco/Smoking Status: Tobacco use Status Tobacco use date assessed 02/08/25 02/08/25 09:05 Patient Tobacco Use Status Never used Tobacco 02/08/25 09:05 e-Cigarette/Vaping Use Never Used 02/08/25 09:05 Thrive Assessment: Date of Thrive Assessment Date Thrive assessed 07/19/24 02/08/25 09:05 Currently or been in a relationship where the following occur: No concerns reported Const General: no acute distress and alert Orientation/consciousness: patient oriented x3 HENMT Ears: external ears normal General nose exam: Normal external nose present Mouth: Normal oral and palatal mucosa present and moist mucous membranes Eyes Other: Pale palpebral conjunctivae General: appearance normal, both eyes and all related structures Pupils: Equal, round and reactive pupils present EOM: EOMs intact bilaterally Neck Neck: Yes full ROM, Yes no lymphadenopathy and Yes supple Resp Effort & Inspection: normal respiratory effort and able to speak in complete sentences Auscultation: clear to auscultation bilaterally Cardio Rate: regular rate Rhythm: regular rhythm Heart sounds: S1 normal heart sound present and S2 normal heart sound present GI Palpation (GI): Soft to palpation, nontender and no masses Auscultation: normal bowel sounds Back/Spine/Pelvis Back: No back tenderness Neuro General: patient oriented x3, gait normal, tone normal, moves all extremities, Normal light touch and pain sensation and no focal motor deficits Cranial nerves: Yes CN's II-XII intact bilaterally and Yes Equal, round and reactive pupils present Cognition (Neuro): normal cognition Extrem General: Yes full ROM, Yes no joint enlargement, Yes no clubbing, cyanosis or edema and Yes no calf tenderness Coding Level of Care Code Est Pt Level 4 (44035) Diagnoses Abnormal uterine bleeding N93.9 Iron deficiency anemia due to chronic blood loss D50.0 Anemia type: iron deficiency Iron deficiency anemia type: chronic blood loss Menorrhagia with irregular cycle N92.1 Menorrhagia type: with irregular cycle Easy fatigability R53.83 Bilateral ovarian cysts N83.201; N83.202 Intermittent palpitations R00.2 Assessment & Plan Assessment & Plan (1) Abnormal uterine bleeding: Code(s): N93.9 - Abnormal uterine and vaginal bleeding, unspecified Category: Medical (2) Anemia: Code(s): D64.9 - Anemia, unspecified Category: Medical Qualifiers: Anemia type: iron deficiency Iron deficiency anemia type: chronic blood loss Qualified Code(s): D50.0 - Iron deficiency anemia secondary to blood loss (chronic) (3) Menorrhagia: Code(s): N92.0 - Excessive and frequent menstruation with regular cycle Category: Medical Qualifiers: Menorrhagia type: with irregular cycle Qualified Code(s): N92.1 - Excessive and frequent menstruation with irregular cycle (4) Easy fatigability: Code(s): R53.83 - Other fatigue Category: Medical (5) Bilateral ovarian cysts: Code(s): N83.201 - Unspecified ovarian cyst, right side; N83.202 - Unspecified ovarian cyst, left side Category: Medical (6) Intermittent palpitations: Code(s): R00.2 - Palpitations Category: Medical Plan: Due to acute anemia from abnormal uterine bleeding Plan Twelve lead EKG showed normal sinus rhythm no acute ST-T changes. Ordered CBC, TSH and iron profile today. Started her on ferrous sulfate 325 mg tablet 1 tablet once a day and docusate sodium 100 mg per capsule to take 1 capsule once or twice a day as needed for constipation with starting iron supplements. She has surgery already scheduled for bilateral ovarian cystectomy and D&C with hysteroscopy at [facility] on 02/27/2025 will see her back for follow-up end of March for recheck on her anemia Orders: Orders Complete Blood Count Auto Diff Today D64.9 - Anemia, unspecified, N93.9 - Abnormal uterine and vaginal bleeding, unspecified IRON PROFILE Today D64.9 - Anemia, unspecified, N93.9 - Abnormal uterine and vaginal bleeding, unspecified TSH reflex Free T4 Today D64.9 - Anemia, unspecified, N93.9 - Abnormal uterine and vaginal bleeding, unspecified AMB EKG-In Office Today D64.9 - Anemia, unspecified, N83.201 - Unspecified ovarian cyst, right side, N83.202 - Unspecified ovarian cyst, left side, N92.0 - Excessive and frequent menstruation with regular cycle, N93.9 - Abnormal uterine and vaginal bleeding, unspecified, R00.2 - Palpitations, R53.83 - Other fatigue, Z13.6 - Encounter for screening for cardiovascular disorders Medications: New ferrous sulfate 325 mg PO DAILY 90 tabs 1RF D64.9 - Anemia, unspecified, N93.9 - Abnormal uterine and vaginal bleeding, unspecified, R00.2 - Palpitations docusate sodium 100 mg PO BID 60 caps 2RF
== END 2025-02-08 09:48 | disposition home or self-care (01) ==
LOC: HO.HMCC 08:48
PROVIDERS: PCP Internal Medicine; Visit Provider Internal Medicine
DX: N93.9 Abnormal uterine and vaginal bleeding, unspecified (principal); D50.0 Iron deficiency anemia secondary to blood loss (chronic); N92.1 Excessive and frequent menstruation with irregular cycle; R53.83 Other fatigue; N83.201 Unspecified ovarian cyst, right side; N83.202 Unspecified ovarian cyst, left side; R00.2 Palpitations

== ENCOUNTER 2025-02-12 01:44 | Emergency (ER) | payer OTHER, SELFPAY ==
[2025-02-12 01:56] VITALS: BP 145/85; PULSE 87; RESP 20; TEMP 36.4; O2SAT 99; BMI 35.1
--- NOTE | 2025-02-12 02:13 | ED_ITS ---
HPI - General Adult General Chief complaint: General Medical Stated complaint: gen med Time Seen by Provider: 02/12/25 02:13 Source: patient Mode of arrival: ambulatory Limitations: no limitations History of Present Illness ED Provider: Dr. Nano Plye HPI narrative: 34-year-old female with history of ovarian cysts, dysfunctional uterine bleeding, irregular periods and hypertension presenting with bleeding that was seen in the toilet today. Admits she is not sure if it came from her stool or from her vagina. Denies diarrhea. Denies associated fever, nausea, vomiting, chest pain or difficulty breathing. Describes associated crampy pelvic pain that has been ongoing for the last 2 days. Admits that she has irregular periods at baseline. Tells me she does not recall her last menstrual cycle. Related Data Previous Rx's ?Medication ?Instructions ?Recorded blood pressure test kit-large #1 ea 10/09/22 pregabalin 75 mg capsule (Lyrica) 75 mg PO BID #60 cap s 03/01/24 mirtazapine 7.5 mg tablet 7.5 mg PO BEDTIME #30 tabs 0 03/02/24 naproxen 500 mg tablet 500 mg PO BID PRN for pain # 60 tabs 04/08/24 atenolol 25 mg tablet 25 mg PO DAILY #90 tabs 07/04 11/24 omeprazole 40 mg capsule,delayed 40 mg PO QAM #90 caps 08/26/24 release cetirizine 10 mg tablet (Zyrtec) 10 mg PO DAILY #90 ta bs 11/29/24 docusate sodium 100 mg capsule 100 mg PO BID #60 caps 02/08/25 ferrous sulfate 325 mg (65 mg 325 mg PO DAILY #90 tabs 02/08/25 iron) tablet dicyclomine 20 mg tablet 20 mg PO TID #10 tabs Allergies Allergy/AdvReac Type Severity Reaction Status Date / Time aspirin (ASPIRIN) Allergy Mild BRUISES, Verified 02/12/25 01:58 rash penicillin G Allergy Mild Hives Verified 02/12/25 01:58 Review of Systems 2 Review of Systems: Yes all other systems are reviewed and are negative (As per HPI) [facility] Past Medical History Medical History Intermittent palpitations Anemia Bilateral ovarian cysts Abnormal uterine bleeding Carpal tunnel syndrome on both sides Kidney stone History of irregular menstrual cycles Hx of abnormal cervical Pap smear Left breast lump Surgical History History of foot surgery History of section History of tubal ligation Family History Family History Father Lupus Arthritis Mother Hypertension Sister Ovarian cancer SLE (systemic lupus erythematosus related syndrome) Sister Hypoglycemia Paternal Grandfather Lung cancer Social History Social History Household Members: Spouse and Children Household Members Other:: 3 kids Housing: Apartment Are you a primary primary care provider to a significant other at home: No Do you presently have visiting nurse or other home services: No Alcohol intake: current Alcohol intake frequency: does not drink Alcohol type: wine Patient Tobacco Use Status: Never used Tobacco Smoked in Last 30 Days: No e-Cigarette/Vaping Use: Never Used Second Hand Smoke Exposure: No Use of substances other than those prescribed or required for medical reasons: Yes Advance Directives: No Advance Directives Information Provided: Yes service: No Current occupational status: employed 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 SKIN: Normal skin color for ethnicity, warm, dry, no rashes noted. HEENT: Normocephalic, atraumatic, no stridor, dry mucous membranes, dentition intact, EOMI, PERRLA. NECK: Soft, supple, full ROM, midline structures nontender, no step-offs, no deformities, no lymphadenopathy. CHEST: Heart regular rhythm, no murmurs, symmetric chest rise and fall. PULMONARY: Clear to auscultation bilaterally, diminished at the bases, no labored breathing, no wheezes/rhales/rhonchi. ABDOMINAL: Soft, nondistended, suprapubic tenderness to palpation without rebound or guarding, positive bowel sounds in all quadrants. : Deferred. MUSCULOSKELETAL: Normal tone, full range of motion, no deformities, no peripheral edema. NEURO: Alert and oriented x3, CN II through XII intact, equal strength and sensation bilateral upper and lower extremities, no focal neurologic deficits. PSYCHIATRIC: Flat affect, fluid speech, good eye contact and appropriate demeanor. Medications Administered Discontinued Medications Generic Name Dose Route Start Last Admin Trade Name Freq PRN Reason Stop Dose Admin Dicyclomine HCl 20 mg 02/12/25 03:25 02/12/25 04:00 Dicyclomine Hcl 10 Mg Capsule PO 02/12/25 03:26 20 mg ONCE ONE Administration Phenazopyridine HCl 200 mg 02/12/25 03:25 02/12/25 04:00 Phenazopyridine Hcl 200 Mg Tablet PO 02/12/25 03:26 200 mg ONCE ONE Administration Medical Decision Making Medical Decision Making [facility] Narrative: Patient presents today with chief complaint of vaginal bleeding. Differential diagnosis would include anemia, dysfunctional uterine bleeding, and if ectopic , threatened , missed , incomplete , among many others. Patient is not significantly anemic today. Patient feeling improved after Bentyl. Using shared decision making, plan for discharge home to follow-up with primary care and/or specialist. Patient understands and agrees with plan for discharge. Discharged home in stable condition. Differential Diagnosis Differential Diagnoses: The differential diagnosis associated with the presentation includes (As above) Admission/Observation Consideration of admission/observation: Escalation of care including admission/observation considered Lab Data [facility] Lab Attestation statement: I reviewed the patient's lab results. 02/12/25 02:35 02/12/25 02:35 Labs: Lab Results 02/12/25 02/12/25 Range/Units 02:35 04:08 WBC 10.9 H (4.8-10.8) X10*3/uL RBC 4.08 L (4.20-5.50) X10*6/uL Hgb 11.0 L (12.0-16.0) g/dl Hct 31.8 L (37.0-47.0) % MCV 77.9 L (80.0-98.0) fL MCH 27.0 (27.0-33.0) pg MCHC 34.6 (31.0-35.0) g/dl RDW 15.1 (11.0-16.0) % Plt Count 278 (160-400) X10*3/uL MPV 9.6 (9.4-12.3) fL Immature Gran % (Auto) 0.6 H (0.0-0.4) % Neut % (Auto) 61.2 (45-73) % Lymph % (Auto) 28.1 (20-40) % [place] % (Auto) 6.9 (2-11) % Eos % (Auto) 2.7 (0-4) % Baso % (Auto) 0.5 (0-2) % Lymph # (Auto) 3.1 (1.2-4.9) X10*3/uL [place] # (Auto) 0.8 (0.1-1.2) X10*3/uL Eos # (Auto) 0.3 (0.0-0.4) X10*3/uL Baso # (Auto) 0.1 (0.0-0.2) X10*3/uL Abs Immat Gran (auto) 0.07 H (0.00-0.03) X10*3/uL Absolute Neuts (auto) 6.7 (2.0-8.3) x10*3/uL Absolute Nucleated RBC 0.000 (0.0-0.012) X10*3/uL Nucleated RBC % (auto) 0.0 (0.0-0.2) /100WBC Sodium 140 (135-145) mmol/L Potassium 3.9 (3.3-5.1) mmol/L Chloride 108 (96-108) mmol/L Carbon Dioxide 23 (22-29) mmol/L Anion Gap 13 (12-20) BUN 8 L (9-16) mg/dL Creatinine 0.66 (0.5-1.4) mg/dL Estim Creat Clear Calc 98.7 Estimated GFR > 60 Random Glucose 146 H (60-115) mg/dL Calcium 8.5 (8.4-10.2) mg/dL Total Bilirubin 0.2 (0.0-1.0) mg/dL AST 17 (5-31) U/L ALT 19 (0-31) U/L Alkaline Phosphatase 102 (39-117) U/L Total Protein 6.5 (6.5-8.0) g/dL Albumin 3.9 (3.5-5.0) g/dL Urine Color Dark Yellow Urine Appearance Turbid Urine pH 5.5 (5.0-9.0) Ur Specific [place] >= 1.030 H (1.005-1.025) Urine Protein 30 (1+) H (Neg-Trace) mg/dL Urine Glucose (UA) 100 H (Negative) mg/dL Urine Ketones Trace (Negative) mg/dL Urine Blood Large (3+) H (Negative) Urine Nitrite Negative (Negative) Ur Leukocyte Esterase Negative (Negative) Urine RBC >20 H (0-2) /HPF Urine WBC 0-5 (0-5) /HPF Ur Squamous Epith Cells 3-5 (0-2) /HPF Urine Bacteria None Seen (None Seen) Hyaline Casts 3-5 (0-2) /LPF Urine Test NEGATIVE (NEGATIVE) Prescription Management I considered prescription management with: Pain Medication Chronic Conditions Patient?s care impacted by: Hypertension Discharge Plan Discharge Clinical Impression: DUB (dysfunctional uterine bleeding) Menorrhagia Qualifiers: Menorrhagia type: with irregular cycle Qualified Code(s): N92.1 - Excessive and frequent menstruation with irregular cycle Patient Disposition: Home, Self-Care Instructions: Menorrhagia (ED) Prescriptions: New dicyclomine 20 mg tablet 20 mg PO TID Qty: 10 0RF No Action mirtazapine 7.5 mg tablet 7.5 mg PO BEDTIME Qty: 30 0RF naproxen 500 mg tablet 500 mg PO BID PRN (Reason: for pain) Qty: 60 0RF omeprazole 40 mg capsule,delayed release(DR/EC) 40 mg PO QAM Qty: 90 0RF cetirizine [Zyrtec] 10 mg tablet 10 mg PO DAILY Qty: 90 2RF pregabalin [Lyrica] 75 mg capsule 75 mg PO BID Qty: 60 3RF (DME) blood pressure test kit-large Kit See Rx Instructions .ROUTE .MEDSUPPLY Qty: 1 0RF Rx Instructions: As directed atenolol 25 mg tablet 25 mg PO DAILY Qty: 90 3RF ferrous sulfate 325 mg (65 mg iron) tablet 325 mg PO DAILY Qty: 90 1RF docusate sodium 100 mg capsule 100 mg PO BID Qty: 60 2RF Interventions: ED Discharge Assessment Last Done: 02/12/25 05:55 Discharge Date/Time: 02/12/25 05:56 Print Language: Nigerian
[2025-02-12 02:40] LABS: MANUAL DIFF FLAG NO
[2025-02-12 02:41] LABS: Hematocrit 31.8 % (37.0-47.0); Hemoglobin 11.0 g/dl (12.0-16.0); Imm Gran Abs Auto 0.07 X10*3/uL (0.00-0.03); Imm Gran Pct Auto 0.6 % (0.0-0.4); Lymphocytes Absolute Auto 3.1 X10*3/uL (1.2-4.9); Mean Corpuscular HGB Conc 34.6 g/dl (31.0-35.0); Mean Corpuscular Hemoglobin 27.0 pg (27.0-33.0); Mean Corpuscular Volume 77.9 fL (80.0-98.0); NRBC Abs Auto 0.000 X10*3/uL (0.0-0.012); NRBC Pct Auto 0.0 /100WBC (0.0-0.2); Platelet Count 278 X10*3/uL (160-400); Red Blood Count 4.08 X10*6/uL (4.20-5.50); White Blood Count 10.9 X10*3/uL (4.8-10.8)
[2025-02-12 02:58] LABS: Alanine Aminotransferase 19 U/L (0-31); Albumin Level 3.9 g/dL (3.5-5.0); Alkaline Phosphatase 102 U/L (39-117); Anion Gap 13 (12-20); Aspartate Amino Transferase 17 U/L (5-31); Blood Urea Nitrogen 8 mg/dL (9-16); Calcium 8.5 mg/dL (8.4-10.2); Carbon Dioxide 23 mmol/L (22-29); Chloride 108 mmol/L (96-108); Creatinine Clr Calc Pharmacy 98.7; Estimated Glomerular Filt Rate > 60; Potassium 3.9 mmol/L (3.3-5.1); Sodium 140 mmol/L (135-145); Total Protein 6.5 g/dL (6.5-8.0)
[2025-02-12 04:14] LABS: Appearance Urine Turbid; Glucose Urine UA 100 mg/dL (Negative); PH 5.5 (5.0-9.0); Specific Gravity - Urine >= 1.030 (1.005-1.025); UMIC TRIGGER UACC YES
[2025-02-12 04:15] LABS: UPreg QC Valid YES
[2025-02-12 05:55] VITALS: BP 129/81; PULSE 78; RESP 16; TEMP 36.6; O2SAT 94
== END 2025-02-12 05:56 | disposition home or self-care (01) ==
PROVIDERS: Emergency Provider Emergency Medicine
DX: N93.8 Other specified abnormal uterine and vaginal bleeding (principal); N92.1 Excessive and frequent menstruation with irregular cycle; R10.2 Pelvic and perineal pain; R25.2 Cramp and spasm; I10 Essential (primary) hypertension; Z79.899 Other long term (current) drug therapy
CPT/HCPCS: 36415; 80053; 81001; 81025; 85025; 99283; 99284

== ENCOUNTER 2025-03-28 10:41 | Outpatient (AMB) | payer OTHER, SELFPAY ==
--- OUTSIDE RECORDS SUMMARY | 2025-03-26 23:59 | XMS_ITS | Continuity of Care Document ---
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 PUBLICATIONS MANAGER Oncolog y Address [address] [place] [address]- Care Team Providers Care Stave Cutter Name Role Phone River BANGURA, Melly De La Paz Primary Care Physician [place] [facility] [place]): [place]25 - 03/26/25 [facility] TECHNICAL PUBLICATIONS MANAGER Oncology [address] [place] [address] Encounter Type: Triage Allergies, Adverse Reactions, Alerts Substance Criticality Severity Reaction Reaction Severity Status penicillin bruising Active aspirin Bruising Active Medications acetaminophen 325 mg oral capsule 1 capsule = 325 mg, By Mouth, Every 4 hours, PRN Pain , Mild, # 20 capsule, 0 Refills, Acute 12/23/25 7:32:00 AM EDT, 12/23/24 7:32:00 AM EDT, Capsule, [facility], Partial fill upon patient request if the prescription is for a schedule II opioid drug., 145, cm, 12/23/24 6:11:00 EDT, Height, 75, kg, 12/22/24 12:13:00 EDT, Dry Weight Start Date: 12/23/24 Stop Date: 12/23/25 Status: Ordered Quantity: 20.0 Unit: capsule Repeat number: 1 acetaminophen 500 mg oral tablet 1 tablet = 500 mg, By Mouth, Every 4 hours, PRN as needed for pain, # 50 tablet, 0 Refills, Maintenance, 02/27/25 11:44:00 AM EDT, Tablet, [facility]/pharmacy #[id number], Partial fill upon patient request if the prescription is for a schedule II opioid drug., 144, cm, 02/27/25 9:47:00 EDT, Height, 71.7, kg, 02/27/25 9:47:00 EDT, Dry Weight Start Date: 02/27/25 Status: Ordered Quantity: 50.0 Unit: tablet Repeat number: 1 atenolol 25 mg oral tablet TOME 1 TABLETA POR V A ORAL TODOS LOS D Start Date: 12/13/24 Status: Ordered Repeat number: 1 betamethasone-clotrimazole 0.05%-1% topical cream 1 application, Topically, 2 times a day, Apply to rash under breasts and under lower abdomen twice a day. Apply to clean, dry skin., # 45 Gm, 0 Refills, Maintenance, 02/27/25 11:43:00 AM EDT, Cream, [facility]/pharmacy #[id number], Partial fill upon patient request if the prescription is for a schedule II opioiddrug., 1 application Topically 2 times a day,x10 days,Instr:Apply to rash under breasts and under lower abdomen twice a day. Apply to clean, dry skin., 144, cm, 02/27/25 9:47:00 EDT, Height, 71.7, kg, 02/27/25 9:47:00 EDT, Dry Weight Start Date: 02/27/25 Stop Date: 03/09/25 Status: Ordered Quantity: 45.0 Unit: g Repeat number: 1 cetirizine 10 mg oral [...] Refills, Soft Stop, 01/31/25 1:54:00 PM EDT, [facility]/pharmacy #[id number], Partial fill upon patient request if the prescription is for a schedule II opioid drug., 145, cm, 01/31/25 11:45:00 EDT, Height, 73.5, kg, 01/31/25 11:45:00 EDT, Dry Weight Start Date: 01/31/25 Status: Ordered Quantity: 4.0 Unit: tablet Repeat number: 1 ibuprofen 600 mg oral tablet 600 mg, 1, tablet, By Mouth, 4 times a day, PRN, # 40 tablet, Refills 0, Tot. Refills 0, Maintenance, for pain, 02/27/25 11:44:00 AM EDT, [id number] fill upon patient request if the prescription is for a schedule II opioid drug., 144, cm, 02/27/25 9:47:00 EDT, Height, 71.7, kg, 02/27/25 9:47:00 EDT, Dry Weight Start Date: 02/27/25 Status: Ordered Quantity: 40.0 Unit: tablet Repeat number: 1 MiraLax oral powder for reconstitution = 17 Gm, By Mouth, Daily, take as directed, # 238 Gm, 0 Refills, Maintenance, 01/31/25 1:54:00 PM EDT, REC Powder, [facility]/pharmacy #[id number], Partial fill upon patient request if the prescription is for a schedule II opioid drug., 17 Gm By Mouth Daily,Instr:take as directed, 145, cm, 01/31/25 11:45:00 EDT, Height, 73.5, kg, 01/31/25 11:45:00 EDT, Dry Weight Start Date: 01/31/25 Status: Ordered Quantity: 238.0 Unit: g Repeat number: 1 MiraLax oral powder for reconstitution = 17 Gm, By Mouth, Daily, dissolve in 4 to 8 oz of beverage, # 238 Gm, 0 Refills, Maintenance, 02/27/25 11:44:00 AM EDT, REC Powder, [facility]/pharmacy #[id number], Partial fill upon patient request if the prescription is for a schedule II opioid drug., 17 Gm By Mouth Daily,Instr:dissolve in 4 to 8 oz of beverage, 144, cm, 02/27/25 9:47:00 EDT, Height, 71.7, kg, 02/27/25 9:47:00 EDT, Dry Weight Start Date: 02/27/25 Status: Ordered Quantity: 238.0 Unit: g Repeat number: 1 omeprazole 40 mg oral enteric coated capsule 0 Refills, Maintenance, 12/13/24 9:11:00 AM EDT, Partial fill upon patient request if the prescription is for a schedule II opioid drug. Start Date: 12/13/24 Status: Ordered Repeat number: 1 oxyCODONE 5 mg oral tablet 5 mg, 1, tablet, By Mouth, Every 6 hours, PRN, # 5 tablet, Refills 0, Tot. Refills 0, Maintenance, for pain, 02/27/25 11:44:00 AM EDT, Route to Pharmacy Electronically, [facility]/pharmacy #[id number], Partial fill upon patient request if the prescription is for a schedule II opioid drug., 144, cm, 02/27/25 9:47:00 EDT, Height, 71.7, kg, 02/27/25 9:47:00 EDT, Dry Weight Start Date: 02/27/25 Status: Ordered Quantity: 5.0 Unit: tablet Repeat number: 1 oxyCODONE 5 mg oral tablet 5 mg, 1, tablet, By Mouth, Every 6 hours, PRN, # 10 tablet, Refills 0, Tot. Refills 0, Acute 12/23/25 7:35:00 AM EDT, as needed for pain, 12/23/24 7:32:00 AM EDT, Route to Pharmacy Electronically, [facility], Partial fill upon patient request if the prescription is for a schedule II opioid drug., 145, cm, 12/23/24 6:11:00 EDT, Height, 75, kg, 12/22/24 12:13:00 EDT, Dry Weight Start Date: 12/23/24 Stop Date: 12/23/25 Status: Ordered Quantity: 10.0 Unit: tablet Repeat number: 1 senna - oral tablet 2 tablet, By Mouth, Daily at bedtime, PRN for constipation, # 60 tablet, 0 Refills, Maintenance, 02/27/25 11:44:00 AM EDT, Tablet, [facility]/pharmacy #[id number], Partial fill upon patient request if the prescription is for a schedule II opioid drug., 144, cm, 02/27/25 9:47:00 EDT, Height, 71.7, kg, 02/27/25 9:47:00 EDT, Dry Weight Start Date: 02/27/25 Status: Ordered Quantity: 60.0 Unit: tablet Repeat number: 1 simethicone 80 mg oral tablet, chewable 80 mg, 1, tablet, Chew, 4 times a day, # 36 tablet, Refills 0, Tot. Refills 0, Maintenance, 02/27/2511:44:00 AM EDT, Route to Pharmacy Electronically, [facility]/pharmacy #[id number], Partial fill upon patient request if the prescription is for a schedule II opioid drug., 144, cm, 02/27/25 9:47:00 EDT, Height, 71.7, kg, 02/27/25 9:47:00 EDT, Dry Weight Start Date: 02/27/25 Status: Ordered Quantity: 36.0 Unit: tablet Repeat number: 1 Problem List Condition Confirmation Course Effective Dates Status Health St atus Informant Abnormal cervical Papanicolaou smear Confirmed Active Abnormal uterine bleeding (AUB) Confirmed Active Left breast lump Confirmed Active Carpal tunnel syndrome Confirmed Active Ovarian cyst Confirmed Active Kidney stone Confirmed Active Uses Albanian as primary spoken language Confirmed Active Obese class II Confirmed Active Social History Social History Type Response Smoking Status Never (less than 100 in lifetime);Former smoker, quit more than 30 days ago; Other: Quit 13 years ago; entered on: 12/13/24 Sex Sex Representation Female (finding) Patient Care team information Care Team Personnel Name: River BANGURA , Melly De La Paz Position: Reference Physician Member Role: PCP Address: [address] Telecom: Care Team Related Persons Name: FREDRICK SILVA Insurance Providers Guarantor name: [employer] Health Plan Information #: 1 Payer: [employer] Payer Identifier: ROSALIA Member Number: [id number] Group Number: ROSALIA Subscriber Identifier: [id number] Relationship to Subscriber: self Coverage Type: NA Coverage Verification Date: NA Telecom: ROSALIA Address:
--- NOTE | 2025-03-28 10:46 | MHC.PC.OV ---
Vital Signs 03/28/25 10:47 Height 4 ft 9 in Weight 160 lb BMI 34.6 BP 124/80 Blood Pressure Location Lt brachial Position Sitting Respiration 16 Pulse 82 Pulse Source Pulse Oximeter Temp 98.1 F Temp Source Oral Pulse Oximetry (%) 98 Oxygen Delivery Method Room Air Intake Visit Reasons: follow up labs Intake Note: Pt is here today for her f/u lab results Customer Technical Services Manager Required: Yes Customer Technical Services Manager Name: Francis ID #[id number] Information Interpreted: clinical only Family Specialist: Present Accompanied by: Son Allergies aspirin (ASPIRIN) Allergy (Mild, Verified 03/28/25 11:13) BRUISES, rash penicillin G Allergy (Mild, Verified 03/28/25 11:13) Hives Medication List - Last Reconciled 03/28/25 by Melly Holman MD atenolol 25 mg PO DAILY blood pressure test kit-large As directed cetirizine (Zyrtec) 10 mg PO DAILY dicyclomine 20 mg PO TID docusate sodium 100 mg PO BID ferrous sulfate 325 mg PO DAILY mirtazapine 7.5 mg PO BEDTIME naproxen 500 mg PO BID PRN omeprazole 40 mg PO QAM pregabalin (Lyrica) 75 mg PO BID Tobacco use date assessed: 03/28/25 Dental Screening Dental Screen Date: 02/08/25 HPI follow up labs HPI Details 34-year-old lady here today for follow-up. Has abnormal uterine bleeding, seen last January 2025 and ordered CBC and electrolytes, which showed presence of mild anemia. Patient was started on ferrous sulfate but did not continue taking prescription ran out. She is currently being seen at [facility], where she was had a D&C and bilateral ovarian cystectomy with postop diagnosis of endometrial cancer. She is scheduled for hysterectomy next month. Has been feeling well with occasional episodes of easy fatigability but no has of lightheadedness, no chest pain, headache or shortness for breath reported. Complains of slightly itchy rash on both cheeks. Has been using several [id number] creams and patient was she which has not helped. [facility] Medical History (Updated 03/30/25 @ 02:10 by Melly Holman MD) Endometrial cancer Rash of face Intermittent palpitations Anemia Bilateral ovarian cysts Abnormal uterine bleeding Carpal tunnel syndrome on both sides Kidney stone History of irregular menstrual cycles Hx of abnormal cervical Pap smear Left breast lump Surgical History History of foot surgery History of section History of tubal ligation Family History Father Lupus Arthritis Mother Hypertension Sister Ovarian cancer SLE (systemic lupus erythematosus related syndrome) Sister Hypoglycemia Paternal Grandfather Lung cancer Social History Household Members: Spouse and Children Household Members Other:: 3 kids Housing: Apartment Are you a primary certified caregiver to a significant other at home: No Do you presently have visiting nurse or other home services: No Alcohol intake: current Alcohol intake frequency: does not drink Alcohol type: wine Patient Tobacco Use Status: Never used Tobacco e-Cigarette/Vaping Use: Never Used Second Hand Smoke Exposure: No service: No Current occupational status: employed 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 1. Little interest or pleasure in doing things: not at all 2. Feeling down, depressed, or hopeless: not at all 3. Trouble falling or staying asleep, or sleeping too much: several days 4. Feeling tired or having little energy: several days 5. Poor appetite or overeating: several days 6. Feeling bad about yourself - or that you are a failure or have let yourself or your family down: not at all 7. Trouble concentrating on things, such as reading the newspaper or watching television: not at all 8. Moving or speaking so slowly that other people could have noticed. Or the opposite - being so fidgety or restless that you have been moving around a lot more than usual: not at all 9. Thoughts that you would be better off or of hurting yourself in some way: not at all Total score: 3 Depression Screening Interpretation: Negative Depression Screening Done: Yes Source: Developed by Drs. Serafin Land, MarimarCatarino Stevens and colleagues, with an educational sailaja from [employer]. Thrive Questionnaire Date Thrive assessed: 07/19/24 I am a: Patient What is your living situation today?: I have a steady place to live Within the past 12 months, did the food you bought not last and you didn't have the money to get more?: Never true Within the past 12 months, did you worry whether your food would run out before you got money to buy more?: Never true Do you have trouble paying for medicines?: I choose not to answer this question Do you have trouble getting transportation to medical appointments?: I choose not to answer this question Do you have trouble paying your heating and electricity bill?: Yes Do you have trouble taking care of your child, family member or friend?: No Do you have trouble with day-to-day activities such as bathing, preparing meals, shopping, managing finances, etc.?: No Are you currently unemployed and looking for a job?: Yes Are you interested in more education?: No Please select the resources that you would like help with: Utilities Currently or been in a relationship where the following occur: No concerns reported THRIVE Score: 1 AUDIT C Alcohol Use Questionnaire (AUDIT-C) 1. How often do you have a drink containing alcohol?: 2-4 times a month 2. How many drinks containing alcohol do you have on a typical day when you are drinking?: 3 or 4 3. How often do you have six or more drinks on one occasion?: Less than monthly Total Score: 4 DHAVAL-7 AMB Questionnaire DHAVAL-7 Date DHAVAL - 7 assessed: 09/29/23 Feeling nervous, anxious, or on edge: 2 = More than half the days Not being able to stop or control worryin = More than half the days Worrying too much about different things: 2 = More than half the days Trouble relaxin = More than half the days Being so restless that it is hard to sit still: 2 = More than half the days Becoming easily annoyed or irritable: 2 = More than half the days Feeling afraid as if something awful might happen: 2 = More than half the days Total DHAVAL-7 score (0-4 normal; 5-9 mild; 10-14 moderate; 15-21 severe): 14 Source: Developed by Drs. Serafin Land, Marimar Eric, Catarino Valenzuela and colleagues, with an educational sailaja from [employer]. Review of Systems Const Reports as per HPI, Denies headache(s) and Denies weakness Eyes Reports no additional complaints ENT Denies headache(s) Card Denies chest pain Resp Denies chest congestion, Denies cough and Denies wheezing GI Denies abdominal pain, Denies change in bowel habits and Denies heartburn Reports metrorrhagia, Denies hematuria, Denies urinary frequency, Denies dysuria and Denies urinary urgency Musc Reports no additional complaints Neuro Denies headache(s) and Denies weakness Psych Reports no additional complaints Endo Denies polydipsia and Denies polyuria Alejandro/Lymph Reports as per HPI and Denies easy bruising Aller/Immun Denies seasonal rhinorrhea and Denies wheezing Physical exam (Primary Care) Vital Signs: Last Vital Signs Temp 98.1 F 03/28/25 10:47 Pulse 82 03/28/25 10:47 Resp 16 03/28/25 10:47 BP 124/80 03/28/25 10:47 Pulse Ox 98 03/28/25 10:47 Oxygen Delivery Method Room Air 03/28/25 10:47 BMI result Body Mass Index 34.6 Tobacco/Smoking Status: Tobacco use Status Tobacco use date assessed 03/28/25 03/28/25 10:51 Patient Tobacco Use Status Never used Tobacco 03/28/25 10:51 e-Cigarette/Vaping Use Never Used 03/28/25 10:51 PHQ-9: PHQ-9 Score PHQ-9: Total score 6 03/29/25 16:30 Depression Screening Interpretation: Negative Thrive Assessment: Date of Thrive Assessment Date Thrive assessed 07/19/24 03/28/25 10:51 Currently or been in a relationship where the following occur: No concerns reported Const General: no acute distress and alert Orientation/consciousness: patient oriented x3 HENMT Ears: external ears normal General nose exam: Normal external nose present Mouth: Normal oral and palatal mucosa present and moist mucous membranes Eyes Other: Pale palpebral conjunctivae General: appearance normal, both eyes and all related structures Pupils: Equal, round and reactive pupils present EOM: EOMs intact bilaterally Neck Neck: Yes full ROM, Yes no lymphadenopathy and Yes supple Resp Effort & Inspection: normal respiratory effort and able to speak in complete sentences Auscultation: clear to auscultation bilaterally Cardio Rate: regular rate Rhythm: regular rhythm Heart sounds: S1 normal heart sound present and S2 normal heart sound present GI Palpation (GI): Soft to palpation, nontender and no masses Auscultation: normal bowel sounds Back/Spine/Pelvis Back: No back tenderness Skin Rashes: rashes noted (Nose and cheeks) Neuro General: patient oriented x3, gait normal, moves all extremities, Normal light touch and pain sensation and no focal motor deficits Cranial nerves: Yes CN's II-XII intact bilaterally and Yes Equal, round and reactive pupils present Extrem General: Yes full ROM, Yes no joint enlargement, Yes no clubbing, cyanosis or edema and Yes no calf tenderness Results Reviewed Results Reviewed: Name: Kath Kiran Age/Sex: 34/F : 1990 Unit#: [id number] Attend Dr: Nano Pyle DO Re02/12/25 Status: DEP [facility] Disch: SPEC : [id number] KEVYN: 02/12/25 STATUS: COMP REQ : [id number] RECD: 02/12/[address]: Nano Pyle DO COMP: 02/12/25 ENTERED: 02/12/[address]: Generic ED Physician Physician,Unknown ORDERED: CBC Auto Diff Test Result Flag Reference WBC 10.9 H 4.8-10.8 X10*3/uL RBC 4.08 L 4.20-5.50 X10*6/uL HGB 11.0 L 12.0-16.0 g/dl HCT 31.8 L 37.0-47.0 % MCV 77.9 L 80.0-98.0 fL MCH 27.0 27.0-33.0 pg MCHC 34.6 31.0-35.0 g/dl RDW 15.1 11.0-16.0 % PLT 278 160-400 X10*3/uL MPV 9.6 9.4-12.3 fL Neut Pct Auto 61.2 45-73 % ImGran Pct Auto 0.6 H 0.0-0.4 % Lymp Pct Auto 28.1 20-40 % [place] Pct Auto 6.9 2-11 % Eos Pct Auto 2.7 0-4 % Baso Pct Auto 0.5 0-2 % NRBC Pct Auto 0.0 0.0-0.2 /100WBC ANC Neut Abs # 6.7 2.0-8.3 x10*3/uL ImGran Abs Auto 0.07 H 0.00-0.03 X10*3/uL Lymph Abs Auto 3.1 1.2-4.9 X10*3/uL [place] Abs Auto 0.8 0.1-1.2 X10*3/uL Eos Abs Auto 0.3 0.0-0.4 X10*3/uL Baso Abs Auto 0.1 0.0-0.2 X10*3/uL NRBC Abs Auto 0.000 0.0-0.012 X10*3/uL Name: Kath Kiran Age/Sex: 34/F : 1990 Unit#: [id number] Attend Dr: Nano Pyle DO Re02/12/25 Status: DEP [facility] Disch: SPEC : [id number] KEVYN: 02/12/25 STATUS: COMP REQ : [id number] RECD: 02/12/25-[address]: Nano Pyle DO COMP: 02/12/258 ENTERED: 02/12/25-[address]: Generic ED Physician Physician,Unknown ORDERED: CMP Test Result Flag Reference Sodium 140 135-145 mmol/L Potassium 3.9 3.3-5.1 mmol/L CL 108 96-108 mmol/L CO2 23 22-29 mmol/L Gap 13 12-20 BUN 8 L 9-16 mg/dL Creat 0.66 0.5-1.4 mg/dL Estimated CrCl 98.7 Provided height and weight: 144.78 cm, 73.482 kg. eGFR (calculated from the MDRD study equation) and eCrCl (calculated from the Cockcroft-Gault equation) are based on different parameters and may not yield comparable results. If eCrCl result is absurd, please check patient's height/weight. eGFR > 60 Chronic Kidney Disease: Estimated GFR < 60 mL/min/1.73m2 Severe Kidney Disease: Estimated GFR < 15 mL/min/1.73m2 Glucose, Random 146 H 60-115 mg/dL CA 8.5 8.4-10.2 mg/dL Total Bili 0.2 0.0-1.0 mg/dL AST (GOT) 17 5-31 U/L ALT (GPT) 19 0-31 U/L Protein, Total 6.5 6.5-8.0 g/dL Alb 3.9 3.5-5.0 g/dL Alk Phos 102 39-117 U/L Coding Level of Care Code Est Pt Level 4 (50594) Diagnoses Rash of face R21 Iron deficiency anemia due to chronic blood loss D50.0 Anemia type: iron deficiency Iron deficiency anemia type: chronic blood loss Endometrial cancer C54.1 Assessment & Plan Assessment & Plan (1) Rash of face: Code(s): R21 - Rash and other nonspecific skin eruption Category: Medical Plan: Dermatology consult ordered (2) Anemia: Code(s): D64.9 - Anemia, unspecified Category: Medical Qualifiers: Anemia type: iron deficiency Iron deficiency anemia type: chronic blood loss Qualified Code(s): D50.0 - Iron deficiency anemia secondary to blood loss (chronic) Plan: Started on ferrous sulfate 325 mg to take once a day. (3) Endometrial cancer: Code(s): C54.1 - Malignant neoplasm of endometrium Category: Medical Plan: Currently being [facility] at [facility] in scheduled for hysterectomy next month Orders: Referrals Dermatology Referral R21 - Rash and other nonspecific skin eruption Medications: Refilled ferrous sulfate 325 mg PO DAILY 90 tabs 2RF D64.9 - Anemia, unspecified, N93.9 - Abnormal uterine and vaginal bleeding, unspecified, R00.2 - Palpitations
[2025-03-28 10:47] VITALS: BP 124/80; PULSE 82; RESP 16; TEMP 36.7; O2SAT 98; BMI 34.6
== END 2025-03-28 11:48 | disposition home or self-care (01) ==
LOC: HO.HMCC 10:42
PROVIDERS: PCP Internal Medicine; Visit Provider Internal Medicine
DX: R21 Rash and other nonspecific skin eruption (principal); D50.0 Iron deficiency anemia secondary to blood loss (chronic); C54.1 Malignant neoplasm of endometrium

== ENCOUNTER → 2025-03-28 10:41 | Outpatient (BNVA) | payer OTHER, SELFPAY | PROVIDERS: PCP Internal Medicine; Visit Provider Internal Medicine | DX: R21 Rash and other nonspecific skin eruption (principal); D50.0 Iron deficiency anemia secondary to blood loss (chronic); C54.1 Malignant neoplasm of endometrium; D64.9 Anemia, unspecified; N93.9 Abnormal uterine and vaginal bleeding, unspecified; R00.2 Palpitations | CPT/HCPCS: 99212 ==

== ENCOUNTER 2025-06-09 09:46 | Outpatient (REF) | payer OTHER, SELFPAY ==
[2025-06-09 13:16] LABS: MANUAL DIFF FLAG NO
[2025-06-09 13:41] LABS: Hematocrit 36.3 % (37.0-47.0); Hemoglobin 12.0 g/dl (12.0-16.0); Imm Gran Abs Auto 0.05 X10*3/uL (0.00-0.03); Imm Gran Pct Auto 0.6 % (0.0-0.4); Lymphocytes Absolute Auto 1.6 X10*3/uL (1.2-4.9); Mean Corpuscular HGB Conc 33.1 g/dl (31.0-35.0); Mean Corpuscular Hemoglobin 28.0 pg (27.0-33.0); Mean Corpuscular Volume 84.6 fL (80.0-98.0); NRBC Abs Auto 0.000 X10*3/uL (0.0-0.012); NRBC Pct Auto 0.0 /100WBC (0.0-0.2); Platelet Count 228 X10*3/uL (160-400); Red Blood Count 4.29 X10*6/uL (4.20-5.50); White Blood Count 7.8 X10*3/uL (4.8-10.8)
[2025-06-09 13:59] LABS: Alanine Aminotransferase 24 U/L (0-31); Anion Gap 10 (12-20); Aspartate Amino Transferase 31 U/L (5-31); Blood Urea Nitrogen 10 mg/dL (9-16); Calcium 8.9 mg/dL (8.4-10.2); Carbon Dioxide 25 mmol/L (22-29); Chloride 107 mmol/L (96-108); Cholesterol 194 mg/dL (<200); Estimated Glomerular Filt Rate > 60; HDL Cholesterol 46 mg/dL (>40); Iron 54 mcg/dL (30-160); Percent Iron Saturation 18 % (15-50); Potassium 4.0 mmol/L (3.3-5.1); Sodium 138 mmol/L (135-145); Total Iron Binding Capacity 295 mcg/dL (228-428); Triglycerides 371 mg/dL (<150); Unsaturated Iron Binding 241 ug/dL
[2025-06-09 14:13] LABS: Ferritin 58 ng/mL (10-122)
[2025-06-12 09:19] LABS: TS Negative Control Passed; TS Panel A 1; TS Panel B 0; TS Positive Control Passed; TSpotTB Negative (Negative)
== END 2025-06-09 09:47 | disposition home or self-care (01) ==
LOC: HO.HMGCLDS 09:46
PROVIDERS: PCP Internal Medicine; Visit Provider Internal Medicine
DX: Z11.1 Encounter for screening for respiratory tuberculosis (principal); I10 Essential (primary) hypertension; E66.01 Morbid (severe) obesity due to excess calories; Z68.35 Body mass index [BMI] 35.0-35.9, adult; K21.9 Gastro-esophageal reflux disease without esophagitis; K76.0 Fatty (change of) liver, not elsewhere classified; D50.0 Iron deficiency anemia secondary to blood loss (chronic); R53.83 Other fatigue
CPT/HCPCS: 36415; 80048; 80061; 82728; 83036; 83540; 84450; 84460; 85025; 86481

== ENCOUNTER 2025-06-14 14:53 | Outpatient (AMB) | payer OTHER, SELFPAY ==
--- OUTSIDE RECORDS SUMMARY | 2025-06-08 23:59 | XMS_ITS | Continuity of Care Document ---
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 [address] [place] [id number]- Attending Physician: Yeny Villegas MD Admitting Physician: Yeny Villegas MD Referring Physician: Melly Holman MD Encounter Type: Pre-OutPatient One Time Allergies, Adverse Reactions, Alerts Substance Criticality Severity Reaction Reaction Severity Status penicillin bruising Active aspirin Bruising Active Immunizations Given and Recorded Vaccine Date Status Refusal Reason influenza virus vaccine, inactivated 05/11/25 Give n influenza virus vaccine, inactivated 07/26/24 Alli rded Medications acetaminophen 325 mg oral capsule 1 capsule = 325 mg, By Mouth, Every 4 hours, PRN Pain , Mild, # 20 capsule, 0 Refills, Acute 12/23/25 7:32:00 AM EDT, 12/23/24 7:32:00 AM EDT, Capsule, [facility], Partial fill upon patient request if the prescription is for a schedule II opioid drug., 145, cm, 12/23/24 6:11:00 EDT, Height, 75, kg, 12/22/24 12:13:00 EDT, Dry Weight Start Date: 12/23/24 Stop Date: 12/23/25 Status: Ordered Medication Dispense Status: Completed Quantity: 20.0 Unit: capsule Total Allowed Fills: 1 Fills Dispensed: 0 atenolol 25 mg oral tablet TOME 1 TABLETA POR V A ORAL TODOS LOS D Start Date: 12/13/24 Status: Ordered Medication Dispense Status: Completed Total Allowed Fills: 1 Fills Dispensed: 0 Ativan 0.5 mg oral tablet 0.5 tablet = 0.25 mg, By Mouth, Once, Take within [address] scan., # 0.5 tablet, 0 Refills, Soft Stop, 05/17/25 11:23:00 AM EDT, Tablet, [facility]/pharmacy #[id number], Partial fill upon patient request if the prescription is for a schedule II opioid drug., 145, cm, 05/13/25 15:19:00 EDT, Height, 70.95,kg, 05/07/25 6:23:00 EDT, Dry Weight Start Date: 05/17/25 Status: Ordered Medication Dispense Status: Completed Quantity: 0.5 Unit: tablet Total Allowed Fills: 1 Fills Dispensed: 0 betamethasone-clotrimazole 0.05%-1% topical cream 1 application, Topically, 2 times a day, Apply to rash under breasts and under lower abdomen twice a day. Apply to clean, dry skin., # 45 Gm, 0 Refills, Maintenance, 02/27/25 11:43:00 AM EDT, Cream, [facility]/pharmacy #[id number], Partial fill upon patient request if the prescription is for a schedule II opioiddrug., 1 application Topically 2 times a day,x10 days,Instr:Apply to rash under breasts and under lower abdomen twice a day. Apply to clean, dry skin., 144, cm, 02/27/25 9:47:00 EDT, Height, 71.7, kg, 02/27/25 9:47:00 EDT, Dry Weight Start Date: 02/27/25 Stop Date: 03/09/25 Status: Ordered Medication Dispense Status: Completed Quantity: 45.0 Unit: g Total Allowed Fills: 1 Fills Dispensed: 0 cetirizine 10 mg oral tablet 1 tablet = 10 mg, By Mouth, Daily, PRN for allergy symptoms, # 10 tablet, 0 Refills, Maintenance, 12/13/24 9:11:00 AM EDT, Tablet, Partial fill upon patient request if the prescription is for a schedule II opioid drug. Start Date: 12/13/24 Status: Ordered Medication Dispense Status: Completed Quantity: 10.0 Unit: tablet Total Allowed Fills: 1 Fills Dispensed: 0 Dulcolax 5 mg oral enteric coated tablet 4 tablet = 20 mg, By Mouth, Once, take as directed, # 4 tablet, 0 Refills, Soft Stop, 01/31/25 1:54:00 PM EDT, [facility]/pharmacy #[id number], Partial fill upon patient request if the prescription is for a schedule II opioid drug., 145, cm, 01/31/25 11:45:00 EDT, Height, 73.5, kg, 01/31/25 11:45:00 EDT, Dry Weight Start Date: 01/31/25 Status: Ordered Medication Dispense Status: Completed Quantity: 4.0 Unit: tablet Total Allowed Fills: 1 Fills Dispensed: 0 ferrous sulfate 325 mg oral tablet 1 tablet = 325 mg, By Mouth, 2 times a day, # 100 tablet, 0 Refills, Maintenance, 04/12/25 9:35:00 AM EDT, Tablet, Partial fill upon patient request if the prescription is for a schedule II opioid drug. Start Date: 04/12/25 Status: Ordered Medication Dispense Status: Completed Quantity: 100.0 Unit: tablet Total Allowed Fills: 1 Fills Dispensed: 0 ibuprofen 600 mg oral tablet 600 mg, 1, tablet, By Mouth, 4 times a day, PRN, # 40 tablet, Refills 0, Tot. Refills 0, Maintenance, for pain, 02/27/25 11:44:00 AM EDT, Route to Pharmacy Electronically, [facility]/pharmacy #[id number], Partial fill upon patient request if the prescription is for a schedule II opioid drug., 144, cm, 02/27/25 9:47:00 EDT, Height, 71.7, kg, 02/27/25 9:47:00 EDT, Dry Weight Start Date: 02/27/25 Status: Ordered Medication Dispense Status: Completed Quantity: 40.0 Unit: tablet Total Allowed Fills: 1 Fills Dispensed: 0 ibuprofen 800 mg oral tablet 800 mg, 1, tablet, By Mouth, Every 8 hours, # 42 tablet, Refills 3, Tot. Refills 3, Maintenance, 05/13/25 5:43:00 AM EDT, Route to Pharmacy Electronically, [facility]/pharmacy #[id number], Partial fill upon patient request if the prescription is for a schedule II opioid drug., 145, cm, 05/13/25 0:29:00 EDT, Height, 70.95, kg, 05/07/25 6:23:00 EDT, Dry Weight Start Date: 05/13/25 Stop Date: 07/08/25 Status: Ordered Medication Dispense Status: Completed Quantity: 42.0 Unit: tablet Total Allowed Fills: 4 Fills Dispensed: 0 MiraLax oral powder for reconstitution = 17 Gm, By Mouth, Daily, dissolve in water before taking. Use daily until regular bowel movements., # 255 Gm, 0 Refills, Maintenance, 04/24/25 7:48:00 AM EDT, REC Powder, [facility], Partial fill upon patient request if the prescription is for a schedule II opioid drug., 17 Gm By Mouth Daily,Instr:dissolve in water before taking. Use daily until regular bowel movements., 144, cm, 04/24/25 6:23:00 EDT, Height, 71.6, kg, 04/24/25 6:23:00 EDT, Dry Weight Start Date: 04/24/25 Status: Ordered Medication Dispense Status: Completed Quantity: 255.0 Unit: g Total Allowed Fills: 1 Fills Dispensed: 0 omeprazole 40 mg oral enteric coated capsule 0 Refills, Maintenance, 12/13/24 9:11:00 AM EDT, Partial fill upon patient request if the prescription is for a schedule II opioid drug. Start Date: 12/13/24 Status: Ordered Medication Dispense Status: Completed Total Allowed Fills: 1 Fills Dispensed: 0 Readi-Cat 2 Smoothie Landaverde 2% oral suspension See Instructions, If scan in Am drink 1 bottle before bed and 2nd bottle 90 min before the scan If scan after 12PM drink 1 bottle at 8am and 2nd bottle 90 min before scan If scan after 4pm drink 1 bottle 6 hours before the scan and 2nd bottle 90 min before scan, # 900 mL, 0 Refills, Maintenance, 05/15/25 12:36:00 PM EDT, [facility]/pharmacy #[id number], Partial fill upon patient request if the prescription isfor a schedule II opioid drug., If scan in Am drink 1 bottle before bed and 2nd bottle 90 min before the scan; If scan after 12PM drink 1 bottle at 8am and 2nd bottle 90 min before scan; If scan after 4pm drink 1 bottle 6 hours before the scan and 2nd bottle 90 min before scan, 145, cm, 05/13/25 15:19:00 EDT, Height, 70.95, kg, 05/07/25 6:23:00 EDT, Dry Weight Start Date: 05/15/25 Status: Ordered Medication Dispense Status: Completed Quantity: 900.0 Unit: mL Total Allowed Fills: 1 Fills Dispensed: 0 Tylenol 325 mg oral tablet 975 mg, 3, tablet, By Mouth, Every 8 hours, # 60 tablet, Refills 0, Tot. Refills 0, Maintenance, 05/13/25 5:44:00 AM EDT, Route to Pharmacy Electronically, [facility]/pharmacy #[id number], Partial fill upon patient request if the prescription is for a schedule II opioid drug., 145, cm, 05/13/25 0:29:00 EDT, Height, 70.95, kg, 05/07/25 6:23:00 EDT, Dry Weight Start Date: 05/13/25 Status: Ordered Medication Dispense Status: Completed Quantity: 60.0 Unit: tablet Total Allowed Fills: 1 Fills Dispensed: 0 Problem List Condition Confirmation Course Effective Dates Status Health St atus Informant Abnormal cervical Papanicolaou smear Confirmed Active Abnormal uterine bleeding (AUB) Confirmed Active Left breast lump Confirmed Active Carpal tunnel syndrome Confirmed Active Ovarian cyst Confirmed Active Endometrial cancer Confirmed Active Kidney stone Confirmed Active Uses English as primary spoken language Confirmed Active Obese class I Confirmed Active Social History Social History Type Response Sexual Sexually involved in last 6 months: Yes. Gender identity: Female. Smoking Status Never (less than 100 in lifetime);Former smoker, quit more than 30 days ago; Other: Quit 13 years ago; entered on: 12/13/24 Sex Sex Representation Female (finding) Patient Care team information Care Team Personnel Name: River BANGURA , Melly De La Paz Position: Reference Physician Member Role: PCP Address: [address] [place] [address] Telecom: Name: Cici LANIER, Miryam Hernandez Position: S RN Member Role: Primary Care Nurse Care Team Related Persons Name: FREDRICK SILVA Insurance Providers Guarantor name: [employer] Health Plan Information #: 1 Payer: [employer] Payer Identifier: NA Member Number: [id number] Group Number: [id number] Subscriber Identifier: [id number] Relationship to Subscriber: self Coverage Type: NA Coverage Verification Date: NA Telecom: Address: NA
[2025-06-14 15:16] VITALS: BP 108/80; PULSE 87; RESP 16; TEMP 36.9; O2SAT 100; BMI 34.2
--- NOTE | 2025-06-14 15:16 | A.OFFPC_ITS ---
Vital Signs 06/14/25 15:16 Height 4 ft 9 in Weight 158 lb BMI 34.2 BP 108/80 Blood Pressure Location Lt brachial Position Sitting Respiration 16 Pulse 87 Pulse Source Pulse Oximeter Temp 98.4 F Temp Source Oral Pulse Oximetry (%) 100 Oxygen Delivery Method Room Air Intake Visit Reasons: Annual PE Intake Note: Pt is here today for her PE: Child Life Specialist Required: Yes Child Life Specialist Name: Alex ID# [id number] Information Interpreted: clinical only Post menopausal: Yes (s/p robotic assisted total hysterectomy w/ bilateral salpingectomy 04/24/25) Allergies aspirin (ASPIRIN) Allergy (Mild, Verified 06/14/25 15:43) BRUISES, rash penicillin G Allergy (Mild, Verified 06/14/25 15:43) Hives Medication List - Last Reconciled 06/14/25 by Melly Holman MD atenolol 25 mg PO DAILY blood pressure test kit-large As directed cetirizine (Zyrtec) 10 mg PO DAILY omeprazole 40 mg PO QAM sertraline 50 mg PO DAILY Tobacco use date assessed: 06/14/25 Dental Screening Dental Screen Date: 06/14/25 Did you have a dental visit in the last 12 months?: Yes Did you have a dental problem in the last 6 months where you did not have access to dental care?: No Was dental information given to patient?: Patient has dentist [facility] Medical History (Updated 06/14/25 @ 17:42 by Melly Holman MD) History of endometrial cancer History of abnormal uterine bleeding History of ovarian cyst Hypertriglyceridemia Polyarthralgia Rash of face Anemia Abnormal uterine bleeding Carpal tunnel syndrome on both sides Kidney stone Hx of abnormal cervical Pap smear Left breast lump Surgical History History of bilateral salpingectomy History of total hysterectomy History of carpal tunnel surgery of left wrist Hx of appendectomy History of foot surgery History of section History of tubal ligation Family History Father Lupus Arthritis Mother Hypertension Sister Ovarian cancer SLE (systemic lupus erythematosus related syndrome) Sister Hypoglycemia Paternal Grandfather Lung cancer Social History Household Members: Spouse and Children Household Members Other:: 3 kids Housing: Apartment Are you a primary acute care physical therapist to a significant other at home: No Do you presently have visiting nurse or other home services: No Alcohol intake: current Alcohol intake frequency: does not drink Alcohol type: wine Patient Tobacco Use Status: Never used Tobacco e-Cigarette/Vaping Use: Never Used Second Hand Smoke Exposure: No service: No Current occupational status: employed 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 1. Little interest or pleasure in doing things: not at all 2. Feeling down, depressed, or hopeless: not at all 3. Trouble falling or staying asleep, or sleeping too much: several days 4. Feeling tired or having little energy: several days 5. Poor appetite or overeating: several days 6. Feeling bad about yourself - or that you are a failure or have let yourself or your family down: not at all 7. Trouble concentrating on things, such as reading the newspaper or watching television: not at all 8. Moving or speaking so slowly that other people could have noticed. Or the opposite - being so fidgety or restless that you have been moving around a lot more than usual: not at all 9. Thoughts that you would be better off or of hurting yourself in some way: not at all Total score: 3 Depression Screening Interpretation: Positive (sees Siobhan Acosta at [facility] and sees therapist Tanisha Suh) Depression Screening Follow-up: Existing condition, In treatment (on sertraline ) and Community Mental Health Worker F/U Depression Screening Done: Yes Source: Developed by Drs. Serafin Land, Marimar Eric, Catarino Valenzuela and colleagues, with an educational sailaja from [employer]. Thrive Questionnaire Date Thrive assessed: 03/28/25 I am a: Patient What is your living situation today?: I have a steady place to live Within the past 12 months, did the food you bought not last and you didn't have the money to get more?: Never true Within the past 12 months, did you worry whether your food would run out before you got money to buy more?: Never true Do you have trouble paying for medicines?: I choose not to answer this question Do you have trouble getting transportation to medical appointments?: I choose not to answer this question Do you have trouble paying your heating and electricity bill?: Yes Do you have trouble taking care of your child, family member or friend?: No Do you have trouble with day-to-day activities such as bathing, preparing meals, shopping, managing finances, etc.?: No Are you currently unemployed and looking for a job?: Yes Are you interested in more education?: No Please select the resources that you would like help with: Utilities Currently or been in a relationship where the following occur: No concerns reported THRIVE Score: 1 AUDIT C Alcohol Use Questionnaire (AUDIT-C) 1. How often do you have a drink containing alcohol?: 2-4 times a month 2. How many drinks containing alcohol do you have on a typical day when you are drinking?: 3 or 4 3. How often do you have six or more drinks on one occasion?: Less than monthly Total Score: 4 DHAVAL-7 AMB Questionnaire DHAVAL-7 Date DHAVAL - 7 assessed: 06/14/25 Feeling nervous, anxious, or on edge: 1 = Several days Not being able to stop or control worryin = Not at all Worrying too much about different things: 1 = Several days Trouble relaxin = Several days Being so restless that it is hard to sit still: 0 = Not at all Becoming easily annoyed or irritable: 1 = Several days Feeling afraid as if something awful might happen: 0 = Not at all Total DHAVAL-7 score (0-4 normal; 5-9 mild; 10-14 moderate; 15-21 severe): 4 Source: Developed by Drs. Serafin Land, Marimar Eric, Catarino Valenzuela and colleagues, with an educational sailaja from [employer]. DHAVAL-7 Assessment Billing DHAVAL-7 Assessment Tool: DHAVAL-7 Assessment 46292 (Followed at [facility] , sees psychiatrist and therapy) Review of Systems Const Reports body aches, Denies headache(s), Reports lethargy and Denies weakness Eyes Details: Goes to [facility] ENT Reports no additional complaints and Denies headache(s) Card Denies chest pain, Denies diaphoresis, Denies irregular heart rhythm, Denies lightheadedness, Denies palpitations and Denies dyspnea Resp Reports no additional complaints and Denies dyspnea GI Reports no additional complaints Reports no additional complaints Musc Reports as per HPI Skin/Breast Reports as per HPI, Denies breast swelling, Denies breast pain and Denies breast mass Neuro Denies headache(s) and Denies weakness Psych Reports as per HPI Endo Denies palpitations Alejandro/Lymph Reports no additional complaints Aller/Immun Reports no additional complaints Physical exam (Primary Care) Vital Signs: Last Vital Signs Temp 98.4 F 06/14/25 15:16 Pulse 87 06/14/25 15:16 Resp 16 06/14/25 15:16 BP 108/80 06/14/25 15:16 Pulse Ox 100 06/14/25 15:16 Oxygen Delivery Method Room Air 06/14/25 15:16 BMI result Body Mass Index 34.2 Tobacco/Smoking Status: Tobacco use Status Tobacco use date assessed 06/14/25 06/14/25 15:19 Patient Tobacco Use Status Never used Tobacco 06/14/25 15:19 e-Cigarette/Vaping Use Never Used 06/14/25 15:19 PHQ-9: PHQ-9 Score PHQ-9: Total score 3 06/14/25 16:36 Depression Screening Interpretation: Positive (sees Siobhan Acosta at [facility] and sees therapist Tanisha Suh) Depression Screening Follow-up: Existing condition, In treatment (on sertraline ) and Community Mental Health Worker F/U Thrive Assessment: Date of Thrive Assessment Date Thrive assessed 03/28/25 06/14/25 15:19 Currently or been in a relationship where the following occur: No concerns reported Immunizations Boostrix Tdap 2.5 Lf unit-8 mcg-5 Lf/0.5 mL intramuscular syringe Performing Provider: Melly Holman MD Performing Location: [facility] [place] [facility] Administered by: Dominga Brown CMA on 06/14/25 16:35 Dose Route Admin Location Dispensed Lot Number Expiration Date [facility] [place] Equipment [employer] 0.5 mL IM Right Deltoid 0.5 mL [id number] 01/13/28 76651-695-02 [facility] [employer] Total Dispensed Waste 0.5 mL 0 % VIS Given Date VIS Provided VIS Publication Date 06/14/25 Single Vaccine 21 Eligibility Eligibility Date Funding Source Not VFC Eligible 06/14/25 Private Results Reviewed Results Reviewed: Name: Kath Kiran Age/Sex: 35/F : 1990 Unit#: [id number] Attend Dr: Melly Holman MD Re06/09/25 Status: DEP REF Location: [facility] Disch: SPEC : [id number] KEVYN: 06/09/25 STATUS: COMP REQ : [id number] RECD: 06/09/[address]: Melly Holman MD COMP: 06/09/25 ENTERED: 06/09/[address] [facility] [address]: ORDERED: CBC Auto Diff Test Result Flag Reference WBC 7.8 4.8-10.8 X10*3/uL RBC 4.29 4.20-5.50 X10*6/uL HGB 12.0 12.0-16.0 g/dl HCT 36.3 L 37.0-47.0 % MCV 84.6 80.0-98.0 fL MCH 28.0 27.0-33.0 pg MCHC 33.1 31.0-35.0 g/dl RDW 15.2 11.0-16.0 % PLT 228 160-400 X10*3/uL MPV 10.3 9.4-12.3 fL Neut Pct Auto 63.1 45-73 % ImGran Pct Auto 0.6 H 0.0-0.4 % Lymp Pct Auto 20.6 20-40 % Sabine Pct Auto 9.2 2-11 % Eos Pct Auto 6.0 H 0-4 % Baso Pct Auto 0.5 0-2 % NRBC Pct Auto 0.0 0.0-0.2 /100WBC ANC Neut Abs # 4.9 2.0-8.3 x10*3/uL ImGran Abs Auto 0.05 H 0.00-0.03 X10*3/uL Lymph Abs Auto 1.6 1.2-4.9 X10*3/uL Sabine Abs Auto 0.7 0.1-1.2 X10*3/uL Eos Abs Auto 0.5 H 0.0-0.4 X10*3/uL Baso Abs Auto 0.0 0.0-0.2 X10*3/uL NRBC Abs Auto 0.000 0.0-0.012 X10*3/uL Name: Kath Kiran Age/Sex: 35/F : 1990 Unit#: [id number] Attend Dr: Melly Holman MD Re06/09/25 Status: DEP REF Location: [facility] Disch: SPEC : [id number] KEVYN: 06/09/25 STATUS: COMP REQ : [id number] RECD: 06/09/25-[address]: Melly Holman MD COMP: 06/09/25 ENTERED: 06/09/[address]: ORDERED: Met Prof Fast, IRON PROF, Ferritin, AST, ALT, Lipid Panel Test Result Flag Reference Sodium 138 135-145 mmol/L Potassium 4.0 3.3-5.1 mmol/L CL 107 96-108 mmol/L CO2 25 22-29 mmol/L Gap 10 L 12-20 BUN 10 9-16 mg/dL Creat 0.63 0.5-1.4 mg/dL eGFR > 60 Chronic Kidney Disease: Estimated GFR < 60 mL/min/1.73m2 Severe Kidney Disease: Estimated GFR < 15 mL/min/1.73m2 FBS 111 H 60-99 mg/dL A fasting glucose from 100-125 mg/dl is considered impaired (pre-diabetes). CA 8.9 8.4-10.2 mg/dL Iron 54 30-160 mcg/dL TIBC 295 228-428 mcg/dL Saturation 18 15-50 % UIBC 241 ug/dL Ferritin 58 10-122 ng/mL AST (GOT) 31 5-31 U/L ALT (GPT) 24 0-31 U/L Triglyceride 371 H <150 mg/dL Desirable Triglyceride: less than 150 mg/dL Borderline High Triglyceride 150-199 mg/dL High Triglyceride: 200-499 mg/dL Very High Triglyceride: greater than or equal to 5OO mg/dL Cholesterol 194 <200 mg/dL Desirable Cholesterol: less than 200 mg/dL Borderline High Cholesterol: 200-239 mg/dL High Cholesterol: greater than 239 mg/dL LDL Calculated 74 <100 mg/dL Desirable LDL: less than 100 mg/dL Near Optimal/Above Optimal LDL: 110-129 mg/dL Borderline High LDL: 130-159 mg/dL High LDL: 160-189 mg/dL Very High LDL: greater than or equal to 190 mg/dL HDL 46 >40 mg/dL Desirable HDL: greater than 40 mg/dL Note: This HDL assay may give artificially low results in patients with liver disease. Coding Level of Care Code Est Pt Prev Care 18-39y(13594) Diagnoses Rash of face R21 Hypertriglyceridemia E78.1 Hypertension, essential I10 Severe obesity (BMI 35.0-35.9 with comorbidity) E66.01; Z68.35 Gastroesophageal reflux disease without esophagitis K21.9 Esophagitis presence: without esophagitis Polyarthralgia M25.50 History of endometrial cancer Z85.42 Other insomnia G47.09 Insomnia type: other insomnia Additional Codes DHAVAL-7 Assessment Billing - DHAVAL-7 Assessment Tool: DHAVAL-7 Assessment 56292 ([id number]) Assessment & Plan Assessment & Plan (1) Rash of face: Code(s): R21 - Rash and other nonspecific skin eruption Category: Medical (2) Hypertriglyceridemia: Code(s): E78.1 - Pure hyperglyceridemia Category: Medical (3) Hypertension, essential: Comment: controlled with atenolol 25mg QD. Cont. Goal < 140/80 Code(s): I10 - Essential (primary) hypertension Category: Medical (4) Severe obesity (BMI 35.0-35.9 with comorbidity): Comment: Lifestyle modifications encouraged/see note she has lost 2 lb, 03/16/24. Code(s): E66.01 - Morbid (severe) obesity due to excess calories; Z68.35 - Body mass index [BMI] 35.0-35.9, adult Category: Medical (5) GERD (gastroesophageal reflux disease): Comment: Managed on omeprazole. Code(s): K21.9 - Gastro-esophageal reflux disease without esophagitis Category: Medical Qualifiers: Esophagitis presence: without esophagitis Qualified Code(s): K21.9 - Gastro-esophageal reflux disease without esophagitis (6) Polyarthralgia: Code(s): M25.50 - Pain in unspecified joint Category: Medical (7) History of endometrial cancer: Comment: Endometrial endometrial carcinoma with mucinous features, FIGO grade 1, diagnosed 03/01/2025 Code(s): Z85.42 - Personal history of malignant neoplasm of other parts of uterus Category: Medical (8) Insomnia: Comment: We will try mirtazapine. Advised to take daily. We will bring her back in a few weeks to see if this is working for her. Code(s): G47.00 - Insomnia, unspecified Category: Medical Qualifiers: Insomnia type: other insomnia Qualified Code(s): G47.09 - Other insomnia Orders: Orders Lipid Panel 3 Months E78.1 - Pure hyperglyceridemia TDaP Immunization Today Z23 - Encounter for immunization Hemoglobin A1c 3 Months E78.1 - Pure hyperglyceridemia Basic Metabolic Panel Fasting 3 Months E78.1 - Pure hyperglyceridemia Referrals Rheumatology Referral M25.50 - Pain in unspecified joint Dermatology Referral R21 - Rash and other nonspecific skin eruption
== END 2025-06-14 16:59 | disposition home or self-care (01) ==
LOC: HO.HMCC 14:54
PROVIDERS: PCP Internal Medicine; Visit Provider Internal Medicine
DX: Z23 Encounter for immunization (principal)

== ENCOUNTER → 2025-06-14 14:53 | Outpatient (BNVA) | payer OTHER, SELFPAY | PROVIDERS: PCP Internal Medicine; Visit Provider Internal Medicine | DX: Z00.01 Encounter for general adult medical examination with abnormal findings (principal); E78.1 Pure hyperglyceridemia; R21 Rash and other nonspecific skin eruption; I10 Essential (primary) hypertension; E66.01 Morbid (severe) obesity due to excess calories; K21.9 Gastro-esophageal reflux disease without esophagitis; F41.8 Other specified anxiety disorders; M25.50 Pain in unspecified joint; Z23 Encounter for immunization; Z68.35 Body mass index [BMI] 35.0-35.9, adult; Z85.42 Personal history of malignant neoplasm of other parts of uterus | CPT/HCPCS: 90471; 90715; 96127; 99395 ==